=== PATIENT | male | born 1960 | race Caucasian/White ===

== ENCOUNTER → 2022-06-08 | Outpatient (CLI) | payer BC, SELFPAY ==
--- NOTE | 2022-06-08 15:01 | ECHOD_ITS ---
Reason For Study: Chest Pain Procedure This was a 2D Doppler, Color Flow transthoracic echocardiogram. Exam performed in department. Left Ventricle The estimated ejection fraction is 55 %. Normal diastology for age. No regional wall motion abnormalities noted. Right Ventricle Normal RV size. Normal systolic function. Atria Normal left atrium. Normal right atrium. No doppler evidence for ASD. Mitral Valve There is no mitral valve stenosis. Trivial mitral valve insufficiency. Tricuspid Valve There is no tricuspid stenosis. Trivial tricuspid valve insufficiency. Unable to estimate RV systolic pressure due to insufficient tricuspid regurgitant envelope. Aortic Valve Trisinus/trileaflet aortic valve. There is no aortic stenosis. No aortic valve insufficiency. Pulmonic Valve There is no pulmonic valvular stenosis. No pulmonic valve insufficiency. Great Vessels Normal aortic root. Pericardium/Pleural No pericardial effusion. MMode/2D Measurements & Calculations LVIDd: 5.9 cm IVSd: 1.1 cm LA dimension: 4.0 cm LVIDs: 4.3 cm LVPWd: 0.97 cm RVDd: 4.2 cm FS: 27.1 % LAV(MOD-bp): 64.2 ml LA A4 area: 20.0 cm2 RA A4 area: 19.3 cm2 LAV(MOD-bp) Indexed: 30.4 ml/m2 LAV(MOD-sp2): 68.0 ml LAV(MOD-sp4): 53.2 ml Time Measurements MV dec time: 0.19 sec Doppler Measurements & Calculations MV E max bryan: 78.4 cm/sec MV V2 max: 73.5 cm/sec MV P1/2t max bryan: 73.5 cm/sec MV A max bryan: 55.9 cm/sec MV max P.2 mmHg MV P1/2t: 62.9 msec MV E/A: 1.4 MV V2 mean: 37.2 cm/sec MV dec slope: 342.2 cm/sec2 MV mean P.67 mmHg MVA(P1/2t): 3.5 cm2 MV V2 VTI: 30.7 cm Ao V2 max: 127.1 cm/sec LV V1 max: 108.3 cm/sec MR max bryan: 489.7 cm/sec Ao max P.5 mmHg LV V1 max P.7 mmHg MR max P.9 mmHg LV V1 mean P.4 mmHg LV V1 mean: 73.7 cm/sec LV V1 VTI: 25.0 cm PA V2 max: 89.2 cm/sec PA V2 mean: 62.4 cm/sec ECHO/Echo Complete Interpretation Summary The estimated ejection fraction is 55 %. Trivial mitral valve insufficiency. Ordering Physician: MARINA CAMARA Referring Physician: MARINA CMAARA Performed By: Jim Tello RCS
== END | disposition home or self-care (01) ==
PROVIDERS: PCP Nurse Practitioner Family
DX: R07.9 Chest pain, unspecified (principal); I10 Essential (primary) hypertension; Z72.0 Tobacco use
CPT/HCPCS: 93306

== ENCOUNTER → 2023-06-25 | Outpatient (CLI) | payer OTHER, SELFPAY ==
--- NOTE | 2023-06-25 09:05 | VDLE_ITS ---
Reason For Study: bilateral calf pain RIGHT LEFT GSV is normal. GSV is normal. CFV is compressible, spontaneous, phasic, CFV is compressible, spontaneous, phasic, competent and demonstrates normal competent, and demonstrates normal augmentation. augmentation. FV is compressible, spontaneous, phasic, FV is compressible, spontaneous, phasic, competent and demonstrates normal competent and demonstrates normal augmentation. augmentation. POP V is compressible, spontaneous, phasic, POP V is compressible, spontaneous, phasic, competent and demonstrates normal competent and demonstrates normal augmentation. augmentation. T/P Trunk is compressible. T/P Trunk is compressible. PTV is compressible. PTV is compressible. RT PerV is compressible. LT PerV is compressible. Procedure This is a venous duplex using B-mode, color flow and spectral Doppler. Exam performed in department. The exam was diagnostic. A preliminary report was called and/or faxed to Korin at Dr. Montes's office. VL/Venous Duplex US - Aamir Extrem Interpretation Summary Deep veins of the lower extremities are bilaterally patent and compressible seg mentally. There is no evidence of deep vein thrombosis on either side. Valvular competence appears in tact within the proximal deep venous systems bilaterally. The great saphenous veins appear bila terally patent and compressible segmentally. Ordering Physician: Juan Jose Montes Performed By: Omi Celestin RVT
--- NOTE | 2023-06-25 09:05 | ART_ITS ---
Reason For Study: claudication, calf pain Procedure A bilateral lower extremity continuous wave Doppler with analog waveform analysis,segmental pressures,and ankle brachial indexes without exercise. Prelim called to Korin at Dr. Montes's office. Left Segmental Pressures Left brachial= 163mmHg. Left thigh = 61mmHg. Left calf = 67mmHg. Left posterior tibial artery = 68mmHg. Left dorsalis pedis artery = 63mmHg. The left dorsalis pedis waveforms are monophasic. The left posterior tibial artery waveforms are monophasic. Right Segmental Pressures Right brachial= 173mmHg. Right thigh = 148mmHg. Right calf = 152mmHg. Right posterior tibial artery = 151mmHg. Right dorsalis pedis artery = 163mmHg. The right dorsalis pedis waveforms are biphasic. The right posterior tibial artery waveforms are biphasic. Indices The right ankle brachial index by the dorsalis pedis is .94. The right ankle brachial index by the posterior tibial artery is .87. The left ankle brachial index by the posterior tibial artery is .39. The left ankle brachial index by the dorsalis pedis is .36. VL/Lower Ext Art Exam w/o Exercis Interpretation Summary Biphasic Doppler waveforms are noted at ankle level on the right. Monophasic Do ppler waveforms are noted at ankle level on the left. Pulse-volume recordings appear diminished at low-thigh, calf, and ankle levels on the left. The resting right ankle-brachial index is minimally d iminished. The resting left ankle-brachial index is severely diminished. Minimal arterial occlusive disease is noted at ankle level on the right. Severe arterial occlusive disease is noted at ankle level on the left. Ordering Physician: Juan Jose Montes Performed By: Omi Celestin RVT
== END | disposition home or self-care (01) ==
PROVIDERS: PCP Nurse Practitioner Family; Referring Provider Family Medicine; Visit Provider Family Medicine
DX: M79.661 Pain in right lower leg (principal); I73.9 Peripheral vascular disease, unspecified; Z12.2 Encounter for screening for malignant neoplasm of respiratory organs
CPT/HCPCS: 93923; 93970

== ENCOUNTER → 2023-07-02 | Outpatient (CLI) | payer OTHER, SELFPAY ==
--- NOTE | 2023-07-02 08:05 | CT_ITS ---
EXAM: CT CHEST, LUNG CANCER SCREENING WITHOUT INTRAVENOUS CONTRAST CLINICAL INDICATION: SCREENING TECHNIQUE: Helically acquired images were obtained of the chest without intravenous contrast using low dose (LDCT) lung cancer screening protocol. This CT exam was performed using one or more of the following dose reduction techniques: automated exposure control, adjustment of the mA and/or kV according to patient size, and/or use of iterative reconstruction technique. COMPARISON: No relevant prior studies available. FINDINGS: LUNGS AND PLEURAL SPACES: History millimeter right lower lobe pulmonary nodule noted on image 151 of sequence 2 likely representing granuloma. Lungs are otherwise clear. No pleural effusion or thickening. No pneumothorax. HEART: Heart is normal size. Mild to moderate coronary artery calcification. No pericardial effusion. MEDIASTINUM: Normal. Esophagus is unremarkable. No hiatal hernia. No mediastinal or hilar lymphadenopathy. THYROID: Normal. No thyroid nodules or calcification. BONES/JOINTS: No suspicious lytic or blastic abnormality. VASCULATURE: No aortic aneurysm. LYMPH NODES: Normal. No enlarged lymph nodes. CT/Low Dose CT Lung Screening IMPRESSION: 3 mm right lower lobe pulmonary nodule. Lung-RADS score: 2 - Benign Appearance or Behavior. Recommend continued annual screening with a low-dose CT (LDCT) in 12 months. Electronically Signed: Neil Fox MD at 9:13 EDT ,
== END | disposition home or self-care (01) ==
LOC: CT 08:04
PROVIDERS: PCP Nurse Practitioner Family; Referring Provider Family Medicine; Visit Provider Family Medicine
DX: M79.661 Pain in right lower leg (principal); I73.9 Peripheral vascular disease, unspecified; M79.662 Pain in left lower leg; Z12.2 Encounter for screening for malignant neoplasm of respiratory organs
CPT/HCPCS: 71271

== ENCOUNTER → 2023-11-21 | Outpatient (CLI) | payer OTHER, SELFPAY ==
--- NOTE | 2023-11-21 08:31 | CT_ITS ---
STUDY: CTA OF THE ABDOMINAL AORTA AND BILATERAL LOWER EXTREMITIES REASON FOR EXAM: Male, 63 years old. Short distance claudication, sudden onset LLE RADIATION DOSAGE (If Supplied By Facility): CTDIvol = ( 9.3 ) mGy, DLP = ( 1332.27 ) mGycm TECHNIQUE: Axial CT angiography multi-detector data acquisition was obtained from the dome of the liver to the level of the ankles following intravenous administration of IV 100mL Isovue-370. Axial images and MIP images were reconstructed from the axial data set. Post-processing of the angiographic images was performed, with multiplanar reformation and 3D reconstruction. Individualized dose optimization techniques were used for this CT. TECHNICAL QUALITY: Good COMPARISON: None. Descriptors of Narrowing: None (0%) Mild (< 50%) Moderate (50-70%) Severe (70-90%) Subtotal/Total Occlusion (90-100%) Non-Evaluable (technically non-diagnostic FINDINGS: Abdominal aorta: Mild degree of atherosclerotic calcific plaques of the distal abdominal aorta. Celiac and superior mesenteric arteries: No demonstrated narrowing. Inferior mesenteric artery: No demonstrated narrowing. Right renal artery(arteries): Calcific plaques in the right intrarenal branches. Left renal artery(arteries): Calcific plaques seen in the left intrarenal branches. Right common iliac artery: Mild calcific plaques. Right external iliac artery: No demonstrated narrowing. Right internal iliac artery: No demonstrated narrowing. Left common iliac artery: Nonstenotic calcific plaques. Left external iliac artery: No demonstrated narrowing. Left internal iliac artery: No demonstrated narrowing. RIGHT LOWER EXTREMITY Right common femoral artery: No demonstrated narrowing. Right profundus femoris: No demonstrated narrowing. Right superficial femoral: Calcific plaques in the distal portion of the superficial femoral artery. Right popliteal artery: No demonstrated narrowing. Right tibioperoneal trunk: Nonstenotic calcific plaques. Right anterior tibial artery: Nonstenotic plaque at the origin of the anterior tibial artery. Right posterior tibial artery: No demonstrated narrowing. Right peroneal artery: No demonstrated narrowing. LEFT LOWER EXTREMITY Left common femoral artery: No demonstrated narrowing. Left profundus femoris: No demonstrated narrowing. Left superficial femoral: No demonstrated narrowing. Left popliteal artery: No demonstrated narrowing. Left tibioperoneal trunk: Nonobstructive calcific plaques. Left anterior tibial artery: No demonstrated narrowing. Left posterior tibial artery: No demonstrated narrowing. Left peroneal artery: No demonstrated narrowing. CT/CTA Abd w/Runoff W/WO Contrast IMPRESSION: Scattered calcific plaques as described with good three-vessel runoff in both lower extremities. Electronically Signed: Chidi Restrepo MD at 11:07 EST ,
--- OUTSIDE RECORDS SUMMARY | 2023-11-21 08:51 | XMS RPT_ITS | CCD ---
Author Name Unknown Address [address] [place] [address] Organization [facility] Care Team Providers Care Python Programmer Name Role Phone Vee SUAREZ Attending Unavailable Vee SUAREZ Primary Care Unavailable Vee SUAREZ Admitting Unavailable MORALESJOHNRY Deanna Consulting Unavailable PROVIDER, UNKNOWN Consulting Unavailable PROVIDER, UNKNOWN Consulting Unavailable PROVIDER, UNKNOWN Consulting Unavailable Results Test Name Value Interpretation Reference Range Facil ity Encounters Encounter Date Encounter Type Care Provider Facility Start: 11-12-2023 ambulatory Vee SUAREZ [facility] Payers Date Payer Category Payer Unknown [id number] Private Health Insurance [id number] Summary Purpose Family History No Family History Records FoundNo Family History Records Found Advance Directives No Advanced Directives Records FoundNo Advanced Directives Records Found Additional Source Comments (unrecognized sect ion and content) No Status Records FoundNo Status Records Found INFORMATION SOURCE (unrecogn ized section and content) DATE CREATED AUTHOR AUTHOR'S ORGANIZ ATION 11/12/2023 [facility] FOR RECORDS PERTAINING TO PATIENTS WHO ARE OR HAVE BEEN ENROLLED IN A CHEMICAL DEPENDENCY/SUBSTANCEABUSE PROGRAM, SOME INFORMATION MAY BE OMITTED. This clinical summary was aggregated from multiple sources. Caution should be exercised in using it in the provision of clinical care. This summary normalizes information from multiple sources, and as a consequence, information in this document may materially change the coding, format and clinical context of patient data. In addition, data may be omitted in some cases. CLINICAL DECISIONS SHOULD BE BASED ON THE PRIMARY CLINICAL RECORDS. [employer] [facility]. provides no warranty or guarantee of the accuracy or completeness of information in this document.
[2023-11-21 08:59] LABS: CREATININE FINGERSTICK 1.2 mg/dL (0.70-1.30); EGFR FINGERSTICK > 60.0000 mL/min (>60)
== END | disposition home or self-care (01) ==
PROVIDERS: PCP Nurse Practitioner Family; Referring Provider Physician Assistant; Visit Provider Physician Assistant
DX: I73.9 Peripheral vascular disease, unspecified (principal)
CPT/HCPCS: 75635; Q9967

== ENCOUNTER → 2023-12-05 | Outpatient (CLI) | payer OTHER, SELFPAY ==
--- OUTSIDE RECORDS SUMMARY | 2023-12-05 10:05 | XMS RPT_ITS | CCD ---
Author Name Unknown Address [address] [place] [address] Organization [facility] Care Team Providers Care Mercury Cell Cleaner Name Role Phone Vee SUAREZ Attending Unavailable Vee SUAREZ Primary Care Unavailable Vee SUAREZ Admitting Unavailable MORALESJOHNRY Deanna Consulting Unavailable PROVIDER, UNKNOWN Consulting Unavailable PROVIDER, UNKNOWN Consulting Unavailable PROVIDER, UNKNOWN Consulting Unavailable Results Test Name Value Interpretation Reference Range Facil ity Encounters Encounter Date Encounter Type Care Provider Facility Start: 11-12-2023 ambulatory Vee SUAREZ [facility] Payers Date Payer Category Payer Unknown [id number] Private Health Insurance [id number] Summary Purpose Family History No Family History Records FoundNo Family History Records Found Advance Directives No Advanced Directives Records FoundNo Advanced Directives Records Found Additional Source Comments (unrecognized sect ion and content) No Status Records FoundNo Status Records Found INFORMATION SOURCE (unrecogn ized section and content) DATE CREATED AUTHOR AUTHOR'S ORGANIZ ATION 11/12/2023 [facility] FOR RECORDS PERTAINING TO PATIENTS WHO ARE [...] BE BASED ON THE PRIMARY CLINICAL RECORDS. [employer] [facility]. provides no warranty or guarantee of the accuracy or completeness of information in this document.
--- NOTE | 2023-12-05 10:07 | US_ITS ---
STUDY: Focused neck ULTRASOUND REASON FOR EXAM: Male, 63 years old. right posterior neck lipoma TECHNIQUE: Ultrasound evaluation of the thyroid was performed with real-time and static morse-scale imaging. COMPARISON: None. FINDINGS: Right posterior subcutaneous soft tissue nodule measures 5.3 x 5.3 x 2.3 cm. Contains some internal color blood flow. US/Head/Neck Soft Tissue IMPRESSION: Nonspecific subcutaneous solid nodule as above Electronically Signed: Kulwant Alegria MD at 17:14 EST ,
--- NOTE | 2023-12-05 10:08 | US_ITS ---
STUDY: SUPERFICIAL ULTRASOUND - LEFT THUMB REASON FOR EXAM: Male, 63 years old. Left thumb lipoma -- left thumb lipoma TECHNIQUE: A superficial ultrasound was performed with real-time and static morse-scale imaging. COMPARISON: None. FINDINGS: Ultrasound in the area of concern shows an elliptical relatively well-defined hyperechoic subcutaneous soft tissue lesion approximately 2.0 x 1.5 x 1.1 cm. The appearance is nonspecific but most consistent with lipoma. Electronically Signed: Joe Velez MD at 20:28 EST , US/Ext Non Vasc Limited/Soft Tiss IMPRESSION: undefined
--- NOTE | 2023-12-05 10:09 | US_ITS ---
STUDY: SUPERFICIAL ULTRASOUND - LEFT SIDE OF THE BACK. REASON FOR EXAM: Male, 63 years old. Left flank lipoma -- Left flank TECHNIQUE: A superficial ultrasound was performed with real-time and static morse-scale imaging. COMPARISON: None. FINDINGS: The palpable abnormality corresponds to an 8.4 cm x 13.2 cm x 2.1 cm heterogeneous soft tissue mass most likely representing a lipoma. Mild vascularity is seen. Biopsy is recommended. US/Abdomen Limited IMPRESSION: The palpable lump corresponds to an 8.4 cm x 13.2 cm x 2.1 cm heterogeneous soft tissue mass. Slight increased vascularity. Biopsy is recommended. Electronically Signed: Chidi Restrepo MD at 15:27 EST ,
[2023-12-05 11:09] LABS: Absolute Lymphocyte Count 1.95 X10^3/uL (0.83-4.51); Absolute Neutrophil Count 3.6 X10^3/uL (2.0-7.7); Basophil# 0.06 X10^3/uL; Basophil% 0.9 % (0-1); Hematocrit 48.8 % (40-54); Hemoglobin 16.5 g/dL (13.0-16.5); Lymphocyte # 1.95 X10^3/ul (0.83-4.51); Lymphocyte % 29.6 % (19-41); Mean Corp Hgb Conc 33.8 g/dL (32-36); Mean Corpuscular Hgb 30.5 pg (27.0-32.0); Mean Corpuscular Volume 90.2 fL (80-94); Mean Platelet Vol. 10.1 fl (6.2-12.0); Monocyte# 0.78 X10^3/uL; Monocyte% 11.9 % (0-10); NRBC Flagged by Analyzer 0 % (0-5); Neutrophil # 3.58 X10^3/uL (2.7-7.7); Neutrophil % 54.4 % (47-70); Platelet Count 259 K/mm3 (150-450); RBC Distribution Width CV 12.8 % (11.6-14.6); RBC Distribution Width SD 42.5 fl (35.1-43.9); Red Blood Count 5.41 M/mm3 (4.6-6.2); White Blood Count 6.6 K/mm3 (4.4-11.0)
[2023-12-05 11:36] LABS: ALB/GLOB Ratio 1.1 RATIO (0.9-2.4); AST(SGOT) 15 U/L (15-37); Alanine Aminotransfer ALT/SGPT 32 U/L (16-61); Albumin, Serum 3.8 g/dL (3.2-5.0); Alkaline Phosphatase 50 U/L (45-117); Anion Gap 5 (5-15); BUN 34 mg/dL (7-18); BUN/Creat Ratio 38.5 RATIO (10-20); Calcium,Total 9.5 mg/dL (8.5-10.1); Chloride 103 mmol/L (98-107); Creatinine, Serum 0.88 mg/dL (0.70-1.30); EST Glomerular Filtration Rate 93 mL/min (>60); Est Glom Filt Rate - Afr Amer 112 mL/min (>60); Globulin 3.5 g/dL (2.2-4.2); Glucose 155 mg/dL (74-106); Potassium 4.2 mmol/L (3.5-5.1); Protein, Total 7.3 g/dL (6.4-8.2); Sodium Level 137 mmol/L (136-145)
[2023-12-05 11:41] LABS: Hemoglobin A1c 6.6 % (3.8-5.6)
[2023-12-05 11:43] LABS: Microalbumin,Random Urine 9.8 mg/L (NO RANGE EST.); Microalbumin:Creatinine Ratio 8.5 mg/g CRE (<30 mg/g CRE)
== END | disposition home or self-care (01) ==
LOC: US 09:37
PROVIDERS: Family Medicine; PCP Nurse Practitioner Family; Referring Provider Surgery; Visit Provider Surgery
DX: E11.9 Type 2 diabetes mellitus without complications (principal); Z51.81 Encounter for therapeutic drug level monitoring
CPT/HCPCS: 36415; 76536; 76705; 76882; 80053; 82043; 82570; 83036; 85025

== ENCOUNTER 2024-01-02 08:43 | Day surgery (SDC) | payer OTHER, SELFPAY ==
[2024-01-02] MEDS: Lactated Ringers 1,000 ML 15 ML IV (09:05)
[2024-01-02 09:06] VITALS: BP 158/74; PULSE 70; RESP 18; TEMP 36.3; O2SAT 97; BMI 28.3
--- OUTSIDE RECORDS SUMMARY | 2024-01-02 09:06 | XMS RPT_ITS | CCD ---
Author Name Unknown Address [address] [place] [address] Organization [facility] Care Team Providers Care Asphalt Tamper Name Role Phone Vee SUAREZ Attending Unavailable Vee SUAREZ Primary Care Unavailable Vee SUAREZ Admitting Unavailable ISAURO MORALES Consulting Unavailable PROVIDER, UNKNOWN Consulting Unavailable PROVIDER, UNKNOWN Consulting Unavailable PROVIDER, UNKNOWN Consulting Unavailable TE JUNIOR Unavailable SILVESTRE TORRES Unavailable [place] Unavailable Unavailable CARDIOLOGY, GENERAL Unavailable Unavailable VASCULAR SURGEON, GENERAL Unavailable Unavai lable SURGERY, GENERAL Unavailable Unavailable RICHARD GENAO, SCOTT Melgar Unavailable Vee SUAREZ MD Unavailable [phone] MD Unavailable CAMILO MAN MD Unavailable [phone] Diana Kevin RN Unavailable Unavailable Jose D GEORGE, Korin Unavailable Unavaila SUMAN Paz Unavailable Unavailable Twan GEORGE, Brittney Unavailable Unavailable ISAURO MORALES MD Unavailable SANTOS JIMENEZ RN Unavailable Unavailable ANDREW PHELAN Unavailable Unavailable Unavailable Unavailable Medications Current Medications Medication Drug Class(es) Dates Sig (Normalized) Sig (Original) atorvastatin 20 mg oral tablet (3 sources) HMG-CoA Reductase Inhibitor Start: 4 atorvastatin 20 mg tablet ; 1 (one) Tablet daily for 90 days Quantity: 90 {Tablet} Refills: 1 Ordered: 12-Nov-2023 MD Vee SUAREZ Start: 2-Tenzin-2024 hydroCHLOROthiazide 50 mg oral tablet (3 sources) Thiazide Diuretic Start: 4 take 1 tablet by mouth before breakfast hydroCHLOROthiazide 50 mg tablet ; 1 (one) Tablet every morning for 90 days Quantity: 90 {Tablet} Refills: 1 Ordered: 12-Nov-2023 MD Vee SUAREZ Start: 12-Nov-2023 losartan potassium 100 mg oral tablet (3 sources) Angiotensin 2 Receptor Tiffanie Start: 4 losartan 100 mg tablet ; 1 (one) tablet daily for 30 days Quantity: 30 {Tablet} Refills: 5 Ordered: 17-Dec-2023 MD Vee SUAREZ Start: 17-Dec-2023 Completed/Discontinued Medications Medication Drug Class(es) Dates Sig (Normalized) Sig (Original) acetaminophen 300 mg / codeine phosphate 30 mg oral tablet (3 sources) Opioid Agonist Start: 01-05-2011 End: 01-26-2011 take 1 tablet by mouth every four hours as needed ACETAMINOPHEN-COD EINE #3, 300-30MG (Oral Tablet) ; 1 - 2 Tablet every four hours, as needed for 0 days Quantity: 20 {Tablet} Refills: 0 Ordered: 26-Jan-2011 Start: 05-Jan-2011 End: 26-Jan-2011 Status: Inactive Comments: Medication taken as needed. meds to be dispensed in office Problems Active Problems Problem Classification Problem Date Documented Da te Episodic/Chronic Administrative/social admission (20 sources) Patient encounter status; Translations: [Counseling, unspecified] 06-04-2023 Episodic Diabetes mellitus without complication (20 sources) Type 2 diabetes mellitus; Translations: [Type 2 diabetes mellitus without complications] Onset: 11-22-2016 11-12-2023 Chronic Past or Other Problems Problem Classification Problem Date Documented Da te Episodic/Chronic Diabetes mellitus without complication (9 sources) Diabetes mellitus without complication 11-12-2023 Headache; including migraine (9 sources) Headache; including migraine 11-12-2023 Unclassified (3 sources) !Patient notification of lab results - Dr. Suarez. The test(s) that you had done were/was a screening CT. This showed a 3 mm nodule and the recommendation was to have annual screening CTs. You should call our office if you have any questions. 07-16-2023 Unclassified (3 sources) !Patient notification of lab results - Dr. Suarez. 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 I would like to arrange a consult for you with the vascular surgeon in [place]. Please let us know if we may arrange this). You should call our office if you have any questions. 07-01-2023 Unclassified (2 sources) Shortness of breath.. - Symptoms include dyspnea. Note for Shortness of breath : Pt gets short of breath with activity. Symptoms started about 1 month ago. 06-20-2023 Unclassified (2 sources) [ADDITIONAL REASON] Leg pain - Note for Leg pain : Pt c/o bilateral calf pain. Left leg is worse. Pt denies any injury. Pt has pain when walking, but not when resting. Symptoms started about 1 month ago. 06-20-2023 Unclassified (3 sources) !Patient notification of lab results - YASMINE Jernigan. The test(s) that you had done were/was a heart stress test. Your tests showed the following abnormalities: baseline EKG abnormality . You should call our office to schedule a referral and if you have any questions. Please let us know if your symptoms do not improve. Note for !Patient notification of lab results : Based on the baseline abnormality, I would like for you to see a vp human resources. Please let me know if you would like to do this. Thanks! 02-08-2022 Unclassified (3 sources) !Patient notification of lab results - YASMINE Jernigan. The test(s) that you had done were/was blood work. The results of your testing were normal . You should call our office if you have any questions. Please follow up as scheduled. 01-28-2022 Unclassified (3 sources) HYPERTENSION - There has been no associated chest pain or dyspnea. 01-25-2022 Unclassified (3 sources) !Patient notification of lab results - Dr. Way. Note for !Patient notification of lab results : Salvador, your labs look pretty good. Your A1C (3 month sugar check) was 6.0 which is not diabetes, but is somewhat elevated and in the pre-diabetes range. Nothing to do with that at this point other than keep the weight down and we will follow.Your cholesterol and other labs look good.Let us know if you have any questions. 10-16-2021 Unclassified (2 sources) HYPERTENSION - Note for HYPERTENSION : No headaches, swelling of ankles, chest pain or shortness of breath. Some dizzy spells. Stopped taking blood pressure pills years ago 10-13-2021 Unclassified (2 sources) [ADDITIONAL REASON] Immunization - Immunizations discussed with patient/ parent: yes. Influenza immunization was given. An immunization information sheet was provided. 10-13-2021 Unclassified (3 sources) Eye Pain - The onset of the eye pain has been acute and has been occurring for days (1). The pain is located in the right eye. Note for Eye pain : Right eye is red. 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 05-23-2017 Unclassified (2 sources) [ADDITIONAL REASON] HYPERTENSION - The symptoms have been associated with chest pain and dyspnea. Note for HYPERTENSION : No headaches, dizzy spells, or swelling of ankles. Has Smoker's Cough 02-14-2017 Unclassified (3 sources) !Patient notification of lab results - Morales. The test(s) that you had done were/was a ultrasound of your aorta. The results of your testing were normal . You should call our office if you have any questions. 11-29-2016 Unclassified (3 sources) !Patient notification of lab results - Morales. The test(s) that you had done were/was an A1C (three month sugar average), a CMP (kidneys, liver, nutrition, sugar) and a lipid panel (cholesterol and triglycerides). Your tests showed the following abnormalities: high sugar . (Your A1c was 6.7 which is in the diabetic range (over 5.7). I recommend you start a medication to help lower your sugar. I also recommend diet, exercise, and weight loss. Lowering your blood pressure, sugar, and quitting smoking would greatly improve your risk for heart disease and further health complications down the road.) You should call our office if you have any questions. 11-23-2016 Unclassified (3 sources) Skin spots - The onset of the skin spots has been sudden and they have been occurring for 3 weeks. The course has been increasing. Note for Skin spots : 2 spots in the arch of right foot. Painful 11-22-2016 Unclassified (3 sources) [ADDITIONAL REASON] Blood pressure check - Note for Blood pressure check-up : Has had elevated Blood Pressure last few visits 11-22-2016 Unclassified (3 sources) recheck - Note for recheck : right thumb, hard to bend thumb (right) and swollen , not painful, is tingling,numb 01-26-2011 Unclassified (3 sources) recheck - Note for recheck : right thumb 01-12-2011 Unclassified (3 sources) Cellulitis - Symptoms include pain, swelling, tenderness, warmth, edema and limited range of motion, while symptoms do not include drainage. 01-05-2011 Unclassified (3 sources) [ADDITIONAL REASON] recheck right thumb - Thumb is swollen and throbs. 01-05-2011 Unclassified (3 sources) thumb pain - c/o pain and swelling to right thumb which keeps him up at night. had for about 10 days. does not know what he did to it. 01-02-2011 Unclassified (1 source) Leg pain - Note for Leg pain : Pt c/o bilateral calf pain. Left leg is worse. Pt denies any injury. Pt has pain when walking, but not when resting. Symptoms started about 1 month ago. 06-20-2023 Unclassified (1 source) [ADDITIONAL REASON] Shortness of breath.. - Symptoms include dyspnea. Note for Shortness of breath : Pt gets short of breath with activity. Symptoms started about 1 month ago. 06-20-2023 Unclassified (1 source) Immunization - Immunizations discussed with patient/ parent: yes. Influenza immunization was given. An immunization information sheet was provided. 10-13-2021 Unclassified (1 source) [ADDITIONAL REASON] HYPERTENSION - Note for HYPERTENSION : No headaches, swelling of ankles, chest pain or shortness of breath. Some dizzy spells. Stopped taking blood pressure pills years ago 10-13-2021 Unclassified (1 source) HYPERTENSION - The symptoms have been associated with chest pain and dyspnea. Note for HYPERTENSION : No headaches, dizzy spells, or swelling of ankles. Has Smoker's Cough 02-14-2017 Unclassified (1 source) HYPERTENSION - There has been no associated chest pain. Note for HYPERTENSION : Pt does not check BP at home. Pt was seen and started on losartan 1 month ago. He is feeling good on new med. Labs done. 12-17-2023 Results Test Name Value Interpretation Reference Range Facil ity Vital Signs Date Time Vital Sign Value Performing Clinician Mariah denis 12-17-2023 10:58-0500 Body height 180.34 cm [facility] [place] 12-17-2023 10:58-0500 Body mass index (BMI) [Ratio] 29.76 kg/m2 Brittney Trent [facility]. 12-17-2023 10:58-0500 Body surface area Derived from formula 2.17 m2 Brittney Trent RN [facility] [employer] [facility] [place].; [facility]. 12-17-2023 10:58-0500 Body weight 96.79 kg Brittney Trent [facility] [place], [employer].; [facility], [facility]. 12-17-2023 10:58-0500 Diastolic blood pressure 69 mm[Hg] Brittney Trent RN [facility] [employer] [facility] [place].; [employer] [facility] [employer] [facility] [place], [facility] Encounters Encounter Date Encounter Type Care Provider Facility Start: 12-17-2023 End: 12-17-2023 Office outpatient visit 15 minutes TE PATEL TUMBLERS SUPERVISOR-C Work Phone: [facility] Start: 11-12-2023 ambulatory R [facility] Start: 11-12-2023 End: 11-12-2023 Office outpatient visit 15 minutes TE PATEL TUMBLERS SUPERVISOR-C Work Phone: [facility] [employer] [facility] [place] Start: 11-07-2023 End: 11-07-2023 Medication Refill/Order TE LINTETTER TUMBLERS SUPERVISOR-C Work Phone: [facility] [employer] [facility] [place] Start: 10-05-2023 End: 10-05-2023 Medication Refill/Order TE HOFSTETTER TUMBLERS SUPERVISOR-C Work Phone: [facility] [employer] [facility] [place] Start: 07-13-2023 End: 07-13-2023 Procedure Order TE PATEL TUMBLERS SUPERVISOR-C [facility] Start: 07-13-2023 End: 07-13-2023 Patient encounter procedure TE PATEL TUMBLERS SUPERVISOR-C [facility] Start: 07-01-2023 End: 07-01-2023 Patient encounter procedure TE PATEL TUMBLERS SUPERVISOR-C [facility] Start: 06-04-2023 End: 06-04-2023 Office outpatient visit 25 minutes TE DELGADOBRAVO TUMBLERS SUPERVISOR-C Work [facility]: [facility] Start: 10-25-2022 End: 10-25-2022 Office outpatient visit 10 minutes TE DELGADOBRAVO TUMBLERS SUPERVISOR-C [facility] Start: 06-28-2022 End: 06-28-2022 Office outpatient visit 15 minutes TE PATEL TUMBLERS SUPERVISOR-C [facility] Start: 03-01-2022 End: 03-01-2022 Transition of Care TE DELGADOBRAVO TUMBLERS SUPERVISOR-C [facility] Start: 02-08-2022 End: 02-08-2022 Patient encounter procedure TE PATEL TUMBLERS SUPERVISOR-C Work Phone: [facility] [employer] [facility] [place] Start: 01-28-2022 End: 01-28-2022 Follow-up encounter TE PATEL TUMBLERS SUPERVISOR-C Work Phone: [facility] [employer] [facility] [place] Start: 01-25-2022 End: 01-25-2022 Addendum to visit TE PATEL TUMBLERS SUPERVISOR-C Work Phone: [facility] [employer] Start: 01-25-2022 End: 01-25-2022 Office outpatient visit 15 minutes TE PATEL TUMBLERS SUPERVISOR-C Work Phone: [facility] [employer] [facility] [place] Start: 10-14-2021 End: 10-16-2021 Results Review TE PATEL TUMBLERS SUPERVISOR-C Work Phone: [facility] [employer] [facility] [place] Start: 10-13-2021 End: 10-13-2021 Office outpatient visit 15 minutes TE PATEL TUMBLERS SUPERVISOR-C Work Phone: [facility] [employer] [facility] [place] Start: 05-23-2017 End: 05-23-2017 Office outpatient visit 15 minutes TE PATEL TUMBLERS SUPERVISOR-C Work Phone: [facility] [employer] [facility] [place] Start: 02-14-2017 End: 02-14-2017 Office outpatient visit 15 minutes TE DELGADOER TUMBLERS SUPERVISOR-C Work Phone: [facility] [employer] Start: 11-29-2016 End: 11-29-2016 Results Review TE PATEL TUMBLERS SUPERVISOR-C Work Phone: [facility] [employer] [facility] [place] Start: 11-23-2016 End: 11-23-2016 Nutrition therapy TE PATEL TUMBLERS SUPERVISOR-C Work Phone: [facility] [employer] [facility] [place] Start: 11-22-2016 End: 11-22-2016 Office outpatient new 30 minutes TE PATEL TUMBLERS SUPERVISOR-C Work Phone: [place] [employer] [facility] [employer] Start: 01-26-2011 End: 01-26-2011 Patient encounter procedure TE PATEL TUMBLERS SUPERVISOR-C Work Phone: [facility] Start: 01-23-2011 End: 01-23-2011 Medication Refill/Order TE BREAUXPETERSON TUMBLERS SUPERVISOR-C Work Phone: [facility] Start: 01-12-2011 End: 01-12-2011 Patient encounter procedure TE PATEL TUMBLERS SUPERVISOR-C Work Phone: [facility] Start: 01-10-2011 End: 01-10-2011 Medication Refill/Order TE BREAUXPETERSON TUMBLERS SUPERVISOR-C Work Phone: [facility] Start: 01-05-2011 End: 01-05-2011 Patient encounter procedure TE DELGADOBRAVO TUMBLERS SUPERVISOR-C Work Phone: [facility] Start: 01-02-2011 End: 01-02-2011 Patient encounter procedure TE DELGADOBRAVO TUMBLERS SUPERVISOR-C Work Phone: [facility] Procedures Date Procedure Procedure Detail Performing Clinician Start: 12-17-2023 End: 12-17-2023 Dischrg meds reconciled w/current med list Vee SUAREZ MD Work Phone: Start: 07-01-2023 End: 07-01-2023 Ct thorax w/o contrast material Vee SUAREZ MD Work Phone: Start: 07-01-2023 End: 07-01-2023 Dup-scan xtr veins complete bilateral study Vee SUAREZ MD Work Phone: Start: 06-04-2023 End: 06-04-2023 Dischrg meds reconciled w/current med list Vee SUAREZ MD Work Phone: Start: 10-25-2022 End: 10-25-2022 Dischrg meds reconciled w/current med list TE PATEL TUMBLERS SUPERVISOR-C Work Phone: Start: 05-11-2022 End: 05-11-2022 Echocardiography TE PATEL TUMBLERS SUPERVISOR-C Work Phone: Plan of Treatment Date Care Activity Detail Author Start: 02-18-2024 [facility], [facility]; ESTABLISHED PATIENT ROUTINE VISIT - Topmission. Start: 18-Feb-2024 10:00 MD Vee SUAREZ Appointment Request Topmission. Start: 12-31-2023 Basic metabolic panel calcium total BMP (01268) Start: 31-Dec-2023 Request [employer].; [employer] ([employer]), [employer]. Start: 12-17-2023 [facility] visit, [facility] pt Medical; ESTABLISHED PATIENT ROUTINE VISIT - [employer]. Start: 17-Dec-2023 11:00 MD Vee SUAREZ Appointment Request Topmission. Start: 11-26-2023 Blood count complete auto&auto difrntl wbc CBC, PLATELETS & AUT DIFF (80411) Start: 26-Nov-2023 Request [employer].; Topmission. Start: 11-26-2023 Comprehensive metabolic panel CMP - COMPREHENSIVE METABOLIC PANEL (17833) Start: 26-Nov-2023 Request [employer].; [employer] ([employer]), [employer]. Start: 11-26-2023 Hemoglobin glycosylated a1c HEMOGLOBIN GLYCLATED (HGB A1C) (20799) Start: 26-Nov-2023 Request [employer].; [employer] ([employer]), Inc. Start: 11-26-2023 Urine albumin quantitative URINARY ALBUMIN/CREATININE RATIO (57159) (26500) Start: 26-Nov-2023 Request [employer].; [employer] ([employer]), Inc. Start: 08-12-2023 Ct thorax w/o contrast material LOW-DOSE COMPUTED TOMOGRAPHY (LDCT) OF CHEST WITHOUT CONTRAST FOR SCREENING FOR MALIGNANT NEOPLASM OF LUNG (03100) Start: 12-Aug-2023 Intent [employer].; [place] Self Representation Document Preparation, [employer]. Start: 07-13-2023 Ct thorax w/o contrast material LOW-DOSE COMPUTED TOMOGRAPHY (LDCT) OF CHEST WITHOUT CONTRAST FOR SCREENING FOR MALIGNANT NEOPLASM OF LUNG (44078) Start: 13-Jul-2023 Intent [facility] [employer].; [facility] [employer] [facility] [place]. Start: 06-04-2023 Non-invasive physiologic study extremity 3 levls PERIPHERAL ARTERIAL STUDY, UPPER OR LOWER, UNI- OR BI- LATERAL (84755) : Lower Start: 04-Jun-2023 Intent [facility] Hospital[facility] [place].; [facility] [employer] [facility] [place], [employer]. Start: 06-04-2023 Removal impacted cerumen instrumentation unilat REMOVAL OF IMPACTED CERUMEN (61543) Start: 04-Jun-2023 Intent [facility] Hospital[facility]Inter[facility] The[facility].; [facility] [employer] [facility] [place], [employer]. Start: 06-04-2023 Visit to determ ldct elig COUNSELING VISIT TO DISCUSS NEED FOR LUNG CANCER SCREENING USING LOW DOSE CT SCAN (LDCT) (SERVICE IS FOR ELIGIBILITY DETERMINATION AND SHARED DECISION MAKING) (G0296) Start: 04-Jun-2023 Intent [facility] Hospital[facility].; [facility] [employer], [employer]. Start: 06-04-2023 Comprehensive metabolic panel CMP - COMPREHENSIVE METABOLIC PANEL (61150) Start: 04-Jun-2023 9:58 Request [employer].; [facility] [employer], [employer]. Start: 06-04-2023 Assay of thyroid stimulating hormone tsh TSH (THYROID STIMULATING HORMONE) (82008) Start: 04-Jun-2023 9:58 Request [facility] [employer].; [facility] [employer], Inc. Start: 06-04-2023 Blood count complete auto&auto difrntl wbc CBC, PLATELETS & AUT DIFF (51230) Start: 04-Jun-2023 9:58 Request [facility] [employer].; [facility] [employer], [employer]. Start: 06-04-2023 Lipid panel LIPID PANEL (74957) Start: 04-Jun-2023 9:57 Request [employer].; [facility] [employer], Inc. Start: 06-28-2022 Hemoglobin glycosylated a1c HGB A1C (95714) Start: 28-Jun-2022 16:08 Request [employer].; [place] [employer]. Start: 06-28-2022 Dilated retinal exam w/evidence of retinopathy DILATED EYE EXAMINATION PERFORMED by EYE in last 12 months() Start: 28-Jun-2022 Intent [employer]; [facility] [employer] [facility] [employer]. Start: 01-25-2022 Patient Education Exercise: for maintaining health (Z71.82) Indication: Body mass index (BMI) exceeds 25 (Z71.82) (Z71.3 (Renamed from Body mass index (BMI) greater than 25) Start: 25-Jan-2022 Instruction Type: Patient Education [employer]; [facility] [employer] [facility] [employer]. Start: 11-22-2016 Patient Education WARTS - PLANTAR Indication: Plantar wart of right foot Start: 22-Nov-2016 Instruction Type: Patient Education [employer].; [employer]. Start: 11-22-2016 Us abdominal real time w/image documentation US ABDOM, COMPLETE (83314) Start: 22-Nov-2016 [facility] [employer]; [employer]. Work Phone: Start: 01-02-2011 Patient Education [facility] [employer]; [facility] [employer] Immunizations Immunization Date Immunization Notes Care Provider Harika mccormick 10-13-2021 influenza, injectabl e, quadrivalent, preservative free TE URRUTIA-Wendi Work Phone: [employer]; [employer] [facility] [employer] Payers Date Payer Category Payer Unknown [id number] Private Health Insurance [id number] Social History Date Type Detail Facility Alcohol Use: Alcohol Use: ; 1 to 7 drinks per week. 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 [employer]; [facility] Highest Education Le bryan Attained: Highest Education Level Attained: ; High school graduate. [facility]; [facility] Marital status: Marital status: ; . [facility].; [facility], [facility] Tobacco use: Tobacco use: ; S mokes 2 packs of cigarettes per day. [facility].; [facility]. [facility].; [facility], [facility] Work Phone: Smokes 2 packs o f cigarettes per day [facility].; [facility]. Work Phone: Full-time [facility].; [facility]. Work Phone: Self-employed [facility]; [facility], [facility]. Work Phone: High school graduate [facility].; [facility] Work Phone: Occasional alcohol use [facility].; [facility], [facility]. Work Phone: [facility]; [facility]. Work Phone: Summary Purpose Family History Father Status:Active Comments:In good health. hypertension Mother Status:Active Comments:In poor health. CVA Sister (s) Status:Active Comments:In good health. 1 Father Status:Active Comments:In good health. hypertension Mother Status:Active Comments:In poor health. CVA Sister (s) Status:Active Comments:In good health. 1 Father Status:Active Comments:In good health. hypertension Mother Status:Active Comments:In poor health. CVA Sister (s) Status:Active Comments:In good health. 1 Advance Directives No Advanced Directives Records FoundNo Advanced Directives Records Found Additional Source Comments (unrecognized sect ion and content) No Status Records FoundNo Status Records Found INFORMATION SOURCE (unrecogn ized section and content) DATE CREATED AUTHOR AUTHOR'S COLT TAVARES 11/12/2023 [facility] FOR RECORDS PERTAINING TO PATIENTS [...] BE BASED ON THE PRIMARY CLINICAL RECORDS. [employer] provides no warranty or guarantee of the accuracy or completeness of information in this document.
--- NOTE | 2024-01-02 09:33 | PCM.HP.BLA ---
History and Physical Date of Admission: 01/02/24 Date of Service: 11/28/23 MR#: [id number] Acct: [id number] Name: KEATON COLLAZO Rep #: [id number] : 1960 Provider: Dr. Inder Lemos MD Age/Sex: 63/M Location: [facility] Status: Signed Intake Vital Signs 07/30/2309:10 11/28/2414:18 Height 5 ft 10 in 5 ft 10 in Weight: 208 lb BMI 29.8 BP 138/75 H Blood Pressure Location Rt brachial Position Sitting Respiration 17 Pulse 76 Pulse Source Monitor Pulse Oximetry (%) 96 Oxygen Delivery Method room air Intake Visit Reasons: LIPOMA ON NECK/BACK & COLONOSCOPY Chief Complaint: c-scope, lipomas on neck/back Is patient in pain?: No Allergies No Known Allergies Allergy (Verified 11/28/23 13:49) Medications hydrochlorothiazide 50 mg tablet 50 mg PO QAM 07/29/23 [History Confirmed 11/28/23] aspirin 81 mg tablet,delayed release (Adult Aspirin Regimen) 81 mg PO DAILY #30 tabs 07/30/23 [Rx Confirmed 11/28/23] atorvastatin 40 mg tablet 40 mg PO DAILY #30 tabs 07/30/23 [Rx Confirmed 11/28/23] cilostazol 50 mg tablet 50 mg PO BID #60 tabs 07/30/23 [Rx Confirmed 11/28/23] PFSH Medical History Bilateral calf pain Diabetes mellitus Dyspnea on exertion Heartburn History of colon polyps Hypertension Smoker Family History Mother Diabetes Heart disease Hypertension CVA (cerebral vascular accident)Other Myocardial infarction Social History Smoking Status: Current every day smoker Tobacco: How many years used: 48 alcohol intake: current alcohol intake frequency: holidays/special occasions only HPI HPI HPI: Patient is a 63 male who presents for need to schedule surveillance colonoscopy secondary to history of adenomatous polyps. They are referred for surgical consultation from Dr. Montes. Patient has had prior colonoscopy in [address] Sebastian. The results of prior scope were: Single adenomatous polyp of the sigmoid colon and a recommended interval for follow-up was 5 years. However, patient states that he was not about to come to the hospital during the COVID pandemic unless he was dying . Patient has no personal history of colon cancer, inflammatory bowel disease, or diverticulitis. They describe their bowel habits as normal. They have approximately 1 per day and spend roughly 30 minutes on the toilet with some occasional significant straining (Mr. Collazo shares that this is one of the places in his house where he likes to smoke). They have not noticed recent bleeding or dark stools. They do not regularly take fiber supplements. Patient has no family history of colon cancer, inflammatory bowel disease, or diverticulitis. The patient's weight is stable. The patient is not prescribed anticoagulants/blood thinners (his only medication like this is a daily aspirin). Patient does have a significant history of heartburn which she states occurs a couple of times per week. He distinguishes this from reflux and shares this symptom occurs less than 1 time per week and is treated with [id number] Tums which she has not taken in approximately 3 months. He has not undergone prior EGD. He denies any difficulty swallowing. Patient does have a longstanding history of smoking and is not inclined to quit Lastly, we discussed during today's visit patient has had progressive growth of a right lower neck, left flank, and left thumb lipomatous masses. He wishes for these to be removed before the continue to grow larger. He denies any significant pain. ROS General General: Yes fatigue; No weight change, appetite, colon cancer, breast cancer or weakness HEENT HEENT: No difficulty swallowing, eye injury, eye surgery, swollen glands or hoarseness Endo Endocrine: No thyroid disease, diabetes mellitus, thyroid cancer, Hair loss, heat intolerance or cold intolerance Skin Skin: No rash or changing moles Musc Musculoskeletal: No back problems, arthritis, rheumatoid arthritis, gout or joint pain Cardio Cardiovascular: Yes high blood pressure; No murmur, pacemaker, heart disease, atrial fibrillation, heart attack, heart stent, palpitations, shortness of breat with exertion or chest pain Psych Psychiatric: No depression, anxiety or hearing voices Resp Respiratory: No shortness of breath, No sleep apnea, No cough, No COPD, No asthma, No emphysema and No wheezing Gastro Gastrointestinal: No abdominal pain, No nausea or vomiting, No diarrhea, No constipation, No blood in stool, No acid reflux, No hemorrhoids, No ulcers, No gallbladder problem and No black,tarry stools Andrew Hematologic: No blood thinners, No blood disorders, No bleeding, No anemia and No blood clots Neuro Neurologic: No system reviewed and no additional complaints, except as documented, No as per HPI, No abnormal gait, No abnormal hearing, No abnormal movements, No abnormal speech, No behavioral changes, No burning sensations, No confusion, No convulsions, No disequilibrium, No dizziness, No localized weakness, No frequent falls, No headache(s), No lack of coordination, No loss of vision, No memory loss, No numbness, No other visual disturbances, No radicular pain, No restless legs, No sensory deficit, No syncope, No tingling, No tremor(s), No weakness and No other Exam Const General: cooperative and no acute distress Orientation: alert, awake and oriented x3 GI Other: Soft, nondistended, nontender to palpation x 4 quadrants. Skin Other: 6 to 8 cm lipoma of the right posterior lower neck, approximately 12 cm lipoma of the left flank, and nodular area (difficult to determine underlying tissue type) of the left thumb along the proximal phalanx adjacent to the interphalangeal joint Assessment and Plan Assessment and Plan (1) History of colon polyps: Status: Acute Comment: This is a 63-year-old male (who appears to be at rather at risk for colon cancer based on history) with no recent changes to his bowel habits, who does have a history of adenomatous polyps?last addressed at colonoscopy in 2017 at an outside facility. However, I have obtained outside records from patient's prior procedure and the endoscopist identified a 4 mm tubular adenoma of the sigmoid colon. 5-year follow-up was given at that time but it was delayed on the account of the COVID pandemic. Patient now wishes to go through with his surveillance. I agree with the indication and have described a 2-day bowel prep as well as the remainder of the procedure to the patient. He wishes to be under way with this procedure soon as possible. We will look for a date. Plan: Plan will be to complete colonoscopy on first mutually agreeable date under local MAC. Pre-procedure prep discussed and paper instructions provided. Patient is also made aware that he will need to have a bobcat driver/labor with him the day of the procedure. (2) Heartburn: Status: Chronic Comment: This is a 63-year-old, , male with history of long-term smoking habit who has regular episodes of heartburn (and less frequently reflux). Given his demographic and tobacco habit I have recommended we proceed with screening EGD for Nielson's esophagus. Patient is receptive of this recommendation and therefore we will plan to proceed with this procedure in conjunction with colonoscopy discussed above. Plan: Nielson's screening EGD in conjunction with surveillance colonoscopy (3) Lipoma: Status: Acute Comment: Clinically?confirmed lipomas of the right posterior neck and left flank. Patient also suspects possible lipoma of left thumb. To the latter, I have shared this is both an unusual location and his exam is not fully convincing. Therefore, I am recommending further imaging before proceeding with an operation. If there is any question as to the diagnosis or proximity to the joint then I would defer management of the thumb lesion to another specialist. However, I would plan to address patient's neck and flank lipomas in the operating room given their size and possibility of significant depth. Plan: ? Ultrasound imaging of right posterior neck, left flank, and left thumb to assess for likelihood that all areas represent lipomas and to assess the extent of depth/relationship to other anatomy ? Will await above imaging before operative planning Orders: I have examined the patient and the H&P has been reviewed. There are no clinical changes since date of exam. Patient confirms that he completed a prep in anticipation of today's procedure and that his output is now liquidy. He states that there is some brown content to it. He otherwise denies any changes to his health history and shares that he is intent on following through with his lipoma removal to after he completes a vascular procedure next week. He denies any further questions about today's procedure so we will proceed to the endoscopy suite for upper endoscopy to screen for Nielson's and lower endoscopy as surveillance from his 2017 scope which found a sigmoid tubular adenoma.
--- NOTE | 2024-01-02 09:45 | COLBX_PTH ---
PATHOLOGY RESULTS PATIENT: KEATON HARLEY LOC: EN U#:[id number] AGE/SX: 63/M ROOM: RE01/02/[address]: Dr. Inder Lemos MD : 1960 BED: DIS: 01/02/2024 SPEC #: [id number] RECD: 01/02/24 13:15 STATUS: DEANA JODEE #: [id number] GEETA: 01/02/24 09:[address]: Inder Lemos DEPT: SURGICAL PATHOLOGY RECD BY: Soha Jones ENTERED: 01/02/24 13:17 SP TYPE: COLON BX OTHR DR: Natalia Henry, INFERTILITY NURSE-C Tissues: Pyloric portion of stomach Gastric mucous membrane Gastric mucous membrane Gastric mucous membrane Esophageal mucous membrane Esophageal mucous membrane Esophageal mucous membrane Procedures: Special Stain Group II Surgery Specimen Level IV Alcian Blue/PAS (control) HEADER OPERATION: Colonoscopy, EGD with biopsies PRE-OP DIAGNOSIS: History of colon polyps, heartburn, lipoma TISSUE SUBMITTED: A - Pyloric nodule biopsy, B - Antrum biopsy for H. pylori and path, C - Anterior wall abnormal mucosa biopsy, D - Cardia nodule biopsy, E - Z-line biopsy, F - Esophageal plaque biopsy, G - Esophageal nodule biopsy MICROSCOPIC DIAGNOSIS A. Pyloric nodule, biopsy: Mild gastritis. Focal intestinal metaplasia (goblet cell metaplasia). See microscopic description and comment. B. Antrum, biopsy: Mild gastritis. See microscopic description and comment. C. Anterior wall abnormal mucosa, biopsy: Mild gastritis. See microscopic description. D. Cardia nodule, biopsy: Focal changes consistent with hyperplastic/inflammatory polyp. E. Z-line, biopsy: Fragments of gastroesophageal mucosa with focal intestinal metaplasia (goblet cell metaplasia), consistent with Nielson's esophagus. Chronic inflammation. Indefinite for low grade dysplasia. See comment. F. Esophageal plaque, biopsy: Fragments of benign squamous epithelium. G. Esophageal nodule, biopsy: A fragment of benign gastric mucosa with minimal chronic inflammation. Intestinal metaplasia (goblet cell metaplasia) not identified. See comment. SJ:erin 01/03/2024 COMMENT A. Alcian blue/PAS stain with matched control is used in the evaluation of the specimen. B. The results of immunohistochemistry for Helicobacter pylori will be reported separately ([id number]). E. Alcian blue/PAS stain with matched control is used in the evaluation of the specimen. Immunohistochemistry ([id number]) for P53 and Ki-67 will be performed and results will be reported separately. G. Alcian blue/PAS stain with matched control is used in the evaluation of the specimen. Case has been reviewed in consultation with Dr. Meza who concurs with the above diagnosis. IDC:AM MICROSCOPIC DESCRIPTION Slides are reviewed. A. The specimen shows fragments of gastric mucosa with chronic inflammatory cell infiltrates in the lamina propria consisting of lymphocytes and plasma cells, consistent with mild chronic gastritis. Focal intestinal metaplasia is also noted. B & C. The specimen shows fragments of gastric mucosa with chronic inflammatory cell infiltrates in the lamina propria consisting of lymphocytes and plasma cells, consistent with mild chronic gastritis. GROSS DESCRIPTION A - Received in fixative is one container labeled with the patient's name and designated pyloric nodule biopsy. The specimen consists of two irregular fragments of light west soft tissue that in aggregate measure 0.4 x 0.4 x 0.1 cm. The specimen is totally submitted in one cassette. B - Received in fixative is one container labeled with the patient's name and designated antrum biopsy. The specimen consists of one irregular fragment of light west soft tissue that measures 0.4 x 0.3 x 0.1 cm. The specimen is totally submitted in one cassette. C - Received in fixative is one container labeled with the patient's name and designated anterior wall abnormal mucosal biopsy. The specimen consists of multiple irregular fragments of light west soft tissue that in aggregate measure 0.6 x 0.5 x 0.1 cm. The specimen is totally submitted in one cassette. D - Received in fixative is one container labeled with the patient's name and designated cardia nodule biopsy. The specimen consists of multiple irregular fragments of light west soft tissue that in aggregate measure 1.0 x 0.3 x 0.1 cm. The specimen is totally submitted in one cassette. E - Received in fixative is one container labeled with the patient's name and designated Z line biopsy. The specimen consists of multiple irregular fragments of light west soft tissue that in aggregate measure 1.0 x 0.2 x 0.1 cm. The specimen is totally submitted in one cassette. F - Received in fixative is one container labeled with the patient's name and designated esophageal plaque biopsy. The specimen consists of two irregular fragments of light west soft tissue that in aggregate measure 0.5 x 0.4 x 0.1 cm. The specimen is totally submitted in one cassette. G - Received in fixative is one container labeled with the patient's name and designated esophageal nodule biopsy. The specimen consists of one irregular fragment of light west soft tissue that measures 0.3 x 0.3 x 0.1 cm. The specimen is totally submitted in one cassette. / SJ:rg 01/02/2024 TC:3 CPT: 42108 x7, 57512 x3
--- NOTE | 2024-01-02 09:45 | IMM_PTH ---
PATHOLOGY RESULTS PATIENT: KEATON HARLEY LOC: EN U#:[id number] AGE/SX: 63/M ROOM: RE01/02/[address]: Dr. Inder Lemos MD : 1960 BED: DIS: 01/02/2024 SPEC #: [id number] RECD: 01/02/24 14:02 STATUS: DEANA REQ #: [id number] GEETA: 01/02/24 09:[address]: Inder Lemos DEPT: IMMUNOHISTOCHEMISTRY RECD BY: Milagro Bermudez ENTERED: 01/02/24 14:03 SP TYPE: IMMUNO OTHR DR: Natalia Henry, DOLL WIGS HACKLER-C Tissues: Stomach, NOS Stomach, NOS Procedures: H Pylori (initial) P53 (initial) KI-67 (add) PHYSICIAN & INSTITUTION [place] [id number] SPECIMEN INFORMATION: Tissue Source: B - Antrum, E - Z-line Clinical Info: History of colon polyps, heartburn, lipoma Specimen Number: [id number] B & E CPT code: 03684 x2, 75363 METHODOLOGY: Deparaffinized sections of prefer/formalin-fixed tissue or PAP/DQ stained slides are incubated with monoclonal/polyclonal antibodies/oligonucleotide probes. Localization is made via biotin free immunoperoxidase method. Appropriate controls are performed and reacted as expected. Results on target cell population are indicated in the following table: RESULTS: ANTIBODY / CLONE RESULT Block B H Pylori (polyclonal) negative Block E P53 (DO-7) positive, focal (indeterminate pattern) Ki-67 (30-9) positive, low These tests were developed and their performance characteristics determined by [facility]. They may not have been cleared or approved by the U.S. Food and Drug Administration. The FDA has determined that such clearance or approval is not necessary. The above immunohistochemical/dualISH markers are ordered and reviewed by the Pathologist. INTERPRETATION: B. Antrum, biopsy: Negative for Helicobacter pylori organisms. E. Z-line, biopsy: Indefinite for low-grade dysplasia. SJ:erin 01/06/2024 Case has been reviewed in consultation with Dr. Meza who concurs with the above diagnosis. IDC:AM
[2024-01-02 10:56] VITALS: BP 144/56; BP 158/74; PULSE 50; RESP 16; TEMP 36.1; O2SAT 97
[2024-01-02 11:00] VITALS: BP 126/71; BP 158/74; PULSE 63; RESP 16; O2SAT 98
[2024-01-02 11:06] VITALS: BP 111/78; BP 158/74; PULSE 67; RESP 16; TEMP 36.1; O2SAT 97
--- NOTE | 2024-01-02 11:06 | OP.EGD_ITS ---
Patient Name: Jamey Collazo Procedure Date: 01/02/2024 9:32 AM Date of : 1960 Age: 63 Procedure: Upper GI endoscopy Indications: Screening for Nielson's esophagus in patient at risk for this condition Providers: Inder Lemos MD Referring MD: Blanca Jernigan Medicines: See the Anesthesia note for documentation of the administered medications Patient Profile: Refer to note in patient chart for documentation of history and physical. Complications: No immediate complications. Estimated blood loss: Minimal. Procedure: Pre-Anesthesia Assessment: - The heart rate, respiratory rate, oxygen saturations, blood pressure, adequacy of pulmonary ventilation, and response to care were monitored throughout the procedure. After obtaining informed consent, the endoscope was passed under direct vision. Throughout the procedure, the patient's blood pressure, pulse, and oxygen saturations were monitored continuously. The Endoscope was introduced through the mouth, and advanced to the second part of duodenum. The upper GI endoscopy was accomplished without difficulty. The patient tolerated the procedure fairly well. Scope In: 9:41:56 AM Scope Out: 10:11:04 AM Total Procedure Duration Time 0 hours 29 minutes 8 seconds Findings: No gross lesions were noted in the duodenal bulb, in the first portion of the duodenum and in the second portion of the duodenum. No biopsies or other specimens were collected for this exam. A single 3 mm mucosal papule (nodule) with no bleeding and no stigmata of recent bleeding was found at the pylorus. Biopsies were taken with a cold forceps for histology. Estimated blood loss was minimal. Localized mildly erythematous mucosa without bleeding was found in the gastric antrum. Biopsies were taken with a cold forceps for Helicobacter pylori testing. Estimated blood loss was minimal. Localized mild mucosal changes characterized by discoloration and beige plaques were found on the anterior wall of the stomach. Biopsies were taken with a cold forceps for histology. Estimated blood loss was minimal. A few 3 to 4 mm mucosal papules (nodules) with no bleeding and no stigmata of recent bleeding were found in the cardia. Biopsies were taken with a cold forceps for histology. Estimated blood loss: 3 mL. The Z-line was irregular and was found 42 cm from the incisors. Biopsies were taken with a cold forceps for histology. Estimated blood loss was minimal. Multiple 2 to 5 mm plaques were found in the middle third of the esophagus. Biopsies were taken with a cold forceps for histology. Impression: - No gross lesions in the duodenal bulb, in the first portion of the duodenum and in the second portion of the duodenum. No specimens collected. - A single mucosal papule (nodule) found in the stomach. Biopsied. - Erythematous mucosa in the antrum. Biopsied. - Discoloration and beige plaques mucosa in the anterior wall of the stomach. Biopsied. - A few mucosal papules (nodules) found in the stomach. Biopsied. - Z-line irregular, 42 cm from the incisors. Biopsied. - Multiple plaques in the middle third of the esophagus. Biopsied. Recommendation: - Discharge patient to home (via wheelchair). - Resume previous diet today. - Use Protonix (pantoprazole) 40 mg PO BID today. - Continue present medications. - No aspirin, ibuprofen, naproxen, or other non-steroidal anti-inflammatory drugs for 2 days. Procedure Code(s): --- Professional --- 39412, Esophagogastroduodenoscopy, flexible, transoral; with biopsy, single or multiple Diagnosis Code(s): --- Professional --- K31.89, Other diseases of stomach and duodenum K22.89, Other specified disease of esophagus Z13.810, Encounter for screening for upper gastrointestinal disorder CPT copyright 2021 [employer]. All rights reserved. The codes documented in this report are preliminary and upon herb counselor review may be revised to meet current compliance requirements. Inder Lemos MD 01/02/2024 11:05:34 AM This report has been signed electronically. Number of Addenda: 0 Note Initiated On: 01/02/2024 9:32 AM
--- NOTE | 2024-01-02 11:06 | OP.CCLET_ITS ---
01/02/2024 Blanca Jernigan Re : Upper GI endoscopy procedure for Jamey Collazo Dear Carl This procedure was performed on December. My impressions and recommendations are as follows: Impressions : - No gross lesions in the duodenal bulb, in the first portion of the duodenum and in the second portion of the duodenum. No specimens collected. - A single mucosal papule (nodule) found in the stomach. Biopsied. - Erythematous mucosa in the antrum. Biopsied. - Discoloration and beige plaques mucosa in the anterior wall of the stomach. Biopsied. - A few mucosal papules (nodules) found in the stomach. Biopsied. - Z-line irregular, 42 cm from the incisors. Biopsied. - Multiple plaques in the middle third of the esophagus. Biopsied. Recommendations : - Discharge patient to home (via wheelchair). - Resume previous diet today. - Use Protonix (pantoprazole) 40 mg PO BID today. - Continue present medications. - No aspirin, ibuprofen, naproxen, or other non-steroidal anti-inflammatory drugs for 2 days. My findings are described in the full procedure note, which is enclosed. If I can be of further assistance, please feel free to contact me at Doctor phone number(s): , Work: . Sincerely, Inder Lemos MD 01/02/2024 11:05:34 AM This report has been signed electronically.
--- NOTE | 2024-01-02 11:10 | OP.COLON_ITS ---
Patient Name: Jamey Collazo Procedure Date: 01/02/2024 10:16 AM Date of : 1960 Age: 63 Procedure: Colonoscopy Indications: High risk colon cancer surveillance: Personal history of non-advanced adenoma Providers: Inder Lemos MD Referring MD: Blanca Jernigan Medicines: See the Anesthesia note for documentation of the administered medications Patient Profile: Refer to note in patient chart for documentation of history and physical. Last Colonoscopy: 7years ago. Complications: No immediate complications. Estimated blood loss: None. Procedure: Pre-Anesthesia Assessment: - The heart rate, respiratory rate, oxygen saturations, blood pressure, adequacy of pulmonary ventilation, and response to care were monitored throughout the procedure. After I obtained informed consent, the scope was passed under direct vision. Throughout the procedure, the patient's blood pressure, pulse, and oxygen saturations were monitored continuously. The Colonoscope was introduced through the anus and advanced to the cecum, identified by appendiceal orifice and ileocecal valve. The colonoscopy was somewhat difficult due to poor bowel prep, significant looping and the patient's cardiovascular instability (vasovagal reaction). Successful completion of the procedure was aided by changing the patient to a supine position, lavage and managing the patient's medical instability. The patient tolerated the procedure fairly well. Scope In: 10:17:09 AM Scope Withdrawal Time 0 hours 21 minutes 32 seconds Scope Out: 10:52:20 AM Total Procedure Duration Time 0 hours 35 minutes 11 seconds Findings: The perianal and digital rectal examinations were normal. The entire examined colon appeared normal on direct and retroflexion views. Impression: - The entire examined colon is normal on direct and retroflexion views. - No specimens collected. Recommendation: - Discharge patient to home (via wheelchair). - Resume previous diet today. - Continue present medications. - Repeat colonoscopy in 5 years for surveillance. - Telephone my office for study results in 1 week. Procedure Code(s): --- Professional --- G0105, Colorectal cancer screening; colonoscopy on individual at high risk Diagnosis Code(s): --- Professional --- Z86.010, Personal history of colonic polyps CPT copyright 2021 [employer]. All rights reserved. The codes documented in this report are preliminary and upon channel marketing manager review may be revised to meet current compliance requirements. Inder Lemos MD 01/02/2024 11:10:24 AM This report has been signed electronically. Number of Addenda: 0 Note Initiated On: 01/02/2024 10:16 AM
--- NOTE | 2024-01-02 11:11 | OP.CCLET_ITS ---
01/02/2024 Blanca Jernigan Re : Colonoscopy procedure for Jamey Collazo Dear Carl This procedure was performed on December. My impressions and recommendations are as follows: Impressions : - The entire examined colon is normal on direct and retroflexion views. - No specimens collected. Recommendations : - Discharge patient to home (via wheelchair). - Resume previous diet today. - Continue present medications. - Repeat colonoscopy in 5 years for surveillance. - Telephone my office for study results in 1 week. My findings are described in the full procedure note, which is enclosed. If I can be of further assistance, please feel free to contact me at Doctor phone number(s): , Work: . Sincerely, Inder Lemos MD 01/02/2024 11:10:24 AM This report has been signed electronically.
[2024-01-02 11:24] VITALS: BP 158/74
== END 2024-01-02 11:32 | disposition home or self-care (01) ==
LOC: EN 08:44 → AC 08:47
PROVIDERS: PCP Nurse Practitioner Family; Referring Provider Nurse Practitioner Family; Visit Provider Surgery
PROC: 0DJD8ZZ Inspection of Lower Intestinal Tract, Via Natural or Artificial Opening Endoscopic (ICD-10-PCS; CPT 45378; principal; 2024-01-02 09:40)
DX: Z12.11 Encounter for screening for malignant neoplasm of colon (principal); E11.9 Type 2 diabetes mellitus without complications; Z86.010 Personal history of colon polyps; I10 Essential (primary) hypertension; F17.200 Nicotine dependence, unspecified, uncomplicated; K22.70 Barrett's esophagus without dysplasia; Z79.82 Long term (current) use of aspirin; Z79.899 Other long term (current) drug therapy; D17.0 Benign lipomatous neoplasm of skin and subcutaneous tissue of head, face and neck; D17.79 Benign lipomatous neoplasm of other sites; K29.70 Gastritis, unspecified, without bleeding; K22.89 Other specified disease of esophagus; E78.00 Pure hypercholesterolemia, unspecified
CPT/HCPCS: 43239; 45378; 88305; 88307; 88313; 88341; 88342; J7120; J2405

== ENCOUNTER 2024-01-08 08:26 | Day surgery (SDC) | payer OTHER, SELFPAY ==
[2024-01-07 08:02] VITALS: BMI 29.8
[2024-01-08 08:44] LABS: Hematocrit 47.1 % (40-54); Hemoglobin 16.2 g/dL (13.0-16.5); Mean Corp Hgb Conc 34.4 g/dL (32-36); Mean Corpuscular Hgb 30.7 pg (27.0-32.0); Mean Corpuscular Volume 89.4 fL (80-94); Mean Platelet Vol. 9.5 fl (6.2-12.0); Platelet Count 233 K/mm3 (150-450); RBC Distribution Width SD 42.8 fl (35.1-43.9); Red Blood Count 5.27 M/mm3 (4.6-6.2); White Blood Count 6.7 K/mm3 (4.4-11.0)
--- OUTSIDE RECORDS SUMMARY | 2024-01-08 08:51 | XMS RPT_ITS | CCD ---
Author Name Unknown Address [id number] [place] [address] Organization [facility] Care Team Providers Care Transfusion Aide Name Role Phone Vee SUAREZ Attending Unavailable Vee SUAREZ Primary Care Unavailable Vee SUAREZ Admitting Unavailable ISAURO MORALES Consulting Unavailable PROVIDER, UNKNOWN Consulting Unavailable PROVIDER, UNKNOWN Consulting Unavailable PROVIDER, UNKNOWN Consulting Unavailable TE JUNIOR Unavailable SILVESTRE TORRES Unavailable CLIFFORD Unavailable Unavailable CARDIOLOGY, GENERAL Unavailable Unavailable VASCULAR SURGEON, GENERAL Unavailable Unavai lable SURGERY, GENERAL Unavailable Unavailable RICHARD GENAO, SCOTT Melgar Unavailable [phone] Vee SUAREZ MD Unavailable Yoni WAY MD Unavailable CAMILO MAN MD Unavailable [phone] Diana Kevin RN Unavailable Unavailable Jose D GEORGE, Korin Unavailable Unavaila SUMAN Paz Unavailable Unavailable Twan GEORGE, Brittney Unavailable Unavailable ISAURO MORALES MD Unavailable [phone] SANTOS JIMENEZ RN Unavailable Unavailable ANDREW PHELAN [...] for you with the vascular surgeon in [place]. Please let us know if we may [...] would like for you to see a electron beam welder setter. Please let me know if you would [...] Body height 180.34 cm Brittney Trent [facility] 12-17-2023 10:58-0500 Body mass index (BMI) [Ratio] 29.76 kg/m2 Brittney Trent RN [facility]. 12-17-2023 10:58-0500 Body surface area Derived from formula 2.17 m2 Brittney Trent RN [facility]. 12-17-2023 10:58-0500 Body weight 96.79 kg Brittney Trent RN [facility], [employer].; [facility], [facility]. 12-17-2023 10:58-0500 Diastolic blood pressure 69 mm[Hg] Brittney Trent RN [facility] [employer] [facility] Encounters Encounter Date Encounter Type Care Provider Facility Start: 12-17-2023 End: 12-17-2023 Office outpatient visit 15 minutes TE PATEL HOGSHEAD STOCK CLERK-C Work Phone: [facility] Start: 11-12-2023 ambulatory R [facility] Start: 11-12-2023 End: 11-12-2023 Office outpatient visit 15 minutes TE PATEL HOGSHEAD STOCK CLERK-C Work Phone: [facility] Start: 11-07-2023 End: 11-07-2023 Medication Refill/Order TE LINTETTER HOGSHEAD STOCK CLERK-C Work Phone: [facility] Start: 10-05-2023 End: 10-05-2023 Medication Refill/Order TE HOFSTETTER HOGSHEAD STOCK CLERK-C Work Phone: [facility] Start: 07-13-2023 End: 07-13-2023 Procedure Order TE PATEL HOGSHEAD STOCK CLERK-C [facility] Start: 07-13-2023 End: 07-13-2023 Patient encounter procedure TE PATEL HOGSHEAD STOCK CLERK-C [facility] Start: 07-01-2023 End: 07-01-2023 Patient encounter procedure TE PATEL HOGSHEAD STOCK CLERK-C [facility] Start: 06-04-2023 End: 06-04-2023 Office outpatient visit 25 minutes TE DLEGADOBRAVO HOGSHEAD STOCK CLERK-C Work Phone: [facility] Start: 10-25-2022 End: 10-25-2022 Office outpatient visit 10 minutes TE DELGADOBRAVO HOGSHEAD STOCK CLERK-C [facility] Start: 06-28-2022 End: 06-28-2022 Office outpatient visit 15 minutes TE PATEL HOGSHEAD STOCK CLERK-C [facility] Start: 03-01-2022 End: 03-01-2022 Transition of Care TE DELGADOBRAVO HOGSHEAD STOCK CLERK-C [facility] Start: 02-08-2022 End: 02-08-2022 Patient encounter procedure TE PATEL HOGSHEAD STOCK CLERK-C Work Phone: [facility] Start: 01-28-2022 End: 01-28-2022 Follow-up encounter TE PATEL HOGSHEAD STOCK CLERK-C Work Phone: [facility] Start: 01-25-2022 End: 01-25-2022 Addendum to visit TE PATEL HOGSHEAD STOCK CLERK-C Work Phone: [facility] Start: 01-25-2022 End: 01-25-2022 Office outpatient visit 15 minutes TE PATEL HOGSHEAD STOCK CLERK-C Work Phone: [facility] Start: 10-14-2021 End: 10-16-2021 Results Review TE PATEL HOGSHEAD STOCK CLERK-C Work Phone: [facility] Start: 10-13-2021 End: 10-13-2021 Office outpatient visit 15 minutes TE PATEL HOGSHEAD STOCK CLERK-C Work Phone: [facility] Start: 05-23-2017 End: 05-23-2017 Office outpatient visit 15 minutes TE PATEL HOGSHEAD STOCK CLERK-C Work Phone: [facility] Start: 02-14-2017 End: 02-14-2017 Office outpatient visit 15 minutes TE DELGADOER HOGSHEAD STOCK CLERK-C Work Phone: [facility] Start: 11-29-2016 End: 11-29-2016 Results Review TE PATEL HOGSHEAD STOCK CLERK-C Work Phone: [facility] Start: 11-23-2016 End: 11-23-2016 Nutrition therapy TE PATEL HOGSHEAD STOCK CLERK-C Work Phone: [facility] Start: 11-22-2016 End: 11-22-2016 Office outpatient new 30 minutes TE PATEL HOGSHEAD STOCK CLERK-C Work Phone: [facility] [employer] [facility] Start: 01-26-2011 End: 01-26-2011 Patient encounter procedure TE PATEL HOGSHEAD STOCK CLERK-C Work Phone: [employer] [facility] Start: 01-23-2011 End: 01-23-2011 Medication Refill/Order TE BREAUXPETERSON HOGSHEAD STOCK CLERK-C Work Phone: [facility] Start: 01-12-2011 End: 01-12-2011 Patient encounter procedure TE PATEL HOGSHEAD STOCK CLERK-C Work Phone: [facility] Start: 01-10-2011 End: 01-10-2011 Medication Refill/Order TE BREAUXPETERSON HOGSHEAD STOCK CLERK-C Work Phone: [facility] Start: 01-05-2011 End: 01-05-2011 Patient encounter procedure TE DELGADOBRAVO HOGSHEAD STOCK CLERK-C Work Phone: [facility] Start: 01-02-2011 End: 01-02-2011 Patient encounter procedure TE DELGADOBRAVO HOGSHEAD STOCK CLERK-C Work Phone: [facility] Procedures Date Procedure Procedure Detail Performing Clinician [...] meds reconciled w/current med list TE PATEL HOGSHEAD STOCK CLERK-C Work Phone: Start: 05-11-2022 End: 05-11-2022 Echocardiography TE PATEL HOGSHEAD STOCK CLERK-C Work Phone: Plan of Treatment Date Care Activity Detail Author Start: 02-18-2024 FQ visit, [facility]; ESTABLISHED PATIENT ROUTINE VISIT - [employer]. Start: 18-Feb-2024 10:00 MD Vee SUAREZ Appointment Request [employer]. Start: 12-31-2023 Basic metabolic panel calcium total BMP (12470) Start: 31-Dec-2023 Request [employer].; [employer], [employer]. Start: 12-17-2023 [facility] visit, [facility]; ESTABLISHED PATIENT ROUTINE VISIT - [employer]. Start: 17-Dec-2023 11:00 MD Vee SUAREZ Appointment Request [employer]. Start: 11-26-2023 Blood count complete auto&auto difrntl wbc CBC, PLATELETS & AUT DIFF (15579) Start: 26-Nov-2023 Request [employer].; [employer]. Start: 11-26-2023 Comprehensive metabolic panel CMP - COMPREHENSIVE METABOLIC PANEL (35117) Start: 26-Nov-2023 Request [employer].; [employer], [employer]. Start: 11-26-2023 Hemoglobin glycosylated a1c HEMOGLOBIN GLYCLATED (HGB A1C) (20871) Start: 26-Nov-2023 Request [employer].; [employer] Start: 11-26-2023 Urine albumin quantitative URINARY ALBUMIN/CREATININE RATIO (90422) ([id number]) Start: 26-Nov-2023 Request [employer].; [employer] Start: 08-12-2023 Ct thorax w/o contrast material LOW-DOSE COMPUTED TOMOGRAPHY (LDCT) OF CHEST WITHOUT CONTRAST FOR SCREENING FOR MALIGNANT NEOPLASM OF LUNG (56130) Start: 12-Aug-2023 Intent [employer].; [place] - [employer], [place]. Start: 07-13-2023 Ct thorax w/o contrast material LOW-DOSE COMPUTED TOMOGRAPHY (LDCT) OF CHEST WITHOUT CONTRAST FOR SCREENING FOR MALIGNANT NEOPLASM OF LUNG (10424) Start: 13-Jul-2023 Intent [facility] [employer].; [facility] Start: 06-04-2023 Non-invasive physiologic study extremity 3 levls PERIPHERAL ARTERIAL STUDY, UPPER OR LOWER, UNI- OR BI- LATERAL (12336) : Lower Start: 04-Jun-2023 Intent [facility], [employer]. Start: 06-04-2023 Removal impacted cerumen instrumentation unilat REMOVAL OF IMPACTED CERUMEN (05822) Start: 04-Jun-2023 Intent [facility] [employer] [employer].; [facility], [employer]. Start: 06-04-2023 Visit to determ ldct elig COUNSELING VISIT TO DISCUSS NEED FOR LUNG CANCER SCREENING USING LOW DOSE CT SCAN (LDCT) (SERVICE IS FOR ELIGIBILITY DETERMINATION AND SHARED DECISION MAKING) (G0296) Start: 04-Jun-2023 Intent [facility].; [facility] [employer], [employer]. Start: 06-04-2023 Comprehensive metabolic panel CMP - COMPREHENSIVE METABOLIC PANEL (65265) Start: 04-Jun-2023 9:58 Request [employer].; [facility] [employer], [employer]. Start: 06-04-2023 Assay of thyroid stimulating hormone tsh TSH (THYROID STIMULATING HORMONE) (36947) Start: 04-Jun-2023 9:58 Request [facility] [employer].; [facility] [employer] Start: 06-04-2023 Blood count complete auto&auto difrntl wbc CBC, PLATELETS & AUT DIFF (00127) Start: 04-Jun-2023 9:58 Request [facility] [employer].; [facility] [employer], [employer]. Start: 06-04-2023 Lipid panel LIPID PANEL (63591) Start: 04-Jun-2023 9:57 Request [employer].; [facility] [employer] Start: 06-28-2022 Hemoglobin glycosylated a1c HGB A1C (51777) Start: 28-Jun-2022 16:08 Request [employer].; [place] [employer]. Start: 06-28-2022 Dilated retinal exam w/evidence of retinopathy DILATED EYE EXAMINATION PERFORMED by EYE in last 12 months() Start: 28-Jun-2022 Intent [employer]; [facility] [employer] [facility] [employer]. Start: 01-25-2022 Patient Education Exercise: for maintaining health (Z71.82) Indication: Body mass index (BMI) exceeds 25 (Z71.82) (Z71.3 (Renamed from Body mass index (BMI) greater than 25) Start: 25-Jan-2022 Instruction Type: Patient Education [employer]; [facility] [employer] [facility] [employer]. Start: 11-22-2016 Patient Education WARTS - PLANTAR Indication: Plantar wart of right foot Start: 22-Nov-2016 Instruction Type: Patient Education [employer].; [employer]. Start: 11-22-2016 Us abdominal real time w/image documentation US ABDOM, COMPLETE (56724) Start: 22-Nov-2016 [facility] [employer]; [employer]. Work Phone: Start: 01-02-2011 Patient Education [facility] [employer]; [employer] [facility] [employer] Immunizations Immunization Date Immunization Notes Care Provider Harika mccormick 10-13-2021 influenza, injectabl e, quadrivalent, preservative free TE URRUTIA-Wendi Work Phone: [employer]; [employer] [facility] [employer] Payers Date Payer Category Payer Unknown [id number] Private Health Insurance [id number] Social History Date Type Detail Facility Alcohol Use: Alcohol Use: ; 1 to 7 drinks per week. 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 [employer]; [facility] Highest Education Le bryan Attained: Highest Education Level Attained: ; High school graduate. [facility]; [facility] Marital status: Marital status: ; . [facility].; [facility], [facility] Tobacco use: Tobacco use: ; S mokes 2 packs of cigarettes per day. [facility]. [facility], [facility] Work Phone: Smokes 2 packs o f cigarettes per day [facility].; [facility]. Work Phone: Full-time [facility]. Work Phone: Self-employed [facility]; [facility], [facility]. Work Phone: High school graduate [facility] [employer] Work Phone: Occasional alcohol use [facility].; [facility], [facility]. Work Phone: [facility]; [facility]. Work Phone: Summary Purpose Family History [...] DATE CREATED AUTHOR AUTHOR'S COLT TAVARES 11/12/2023 [facility] FOR RECORDS PERTAINING TO PATIENTS WHO [...] BE BASED ON THE PRIMARY CLINICAL RECORDS. [employer] provides no warranty or guarantee of the accuracy or completeness of information in this document.
[2024-01-08 08:52] LABS: Anion Gap 3 (5-15); BUN 29 mg/dL (7-18); BUN/Creat Ratio 33.3 RATIO (10-20); Calcium,Total 9.4 mg/dL (8.5-10.1); Chloride 107 mmol/L (98-107); Creatinine, Serum 0.87 mg/dL (0.70-1.30); EST Glomerular Filtration Rate 94 mL/min (>60); Est Glom Filt Rate - Afr Amer 114 mL/min (>60); Estimated Creatinine Clearance 101.53 ml/min; Glucose 159 mg/dL (74-106); Potassium 3.9 mmol/L (3.5-5.1); Sodium Level 138 mmol/L (136-145)
--- NOTE | 2024-01-08 10:22 | HP.PCM_ITS ---
HPI - General HPI Narrative KEATON HARLEY, is a 63 M who presents with LLE claudication, popliteal occlusion [facility] Medical History (Updated 12/26/23 @ 14:44 by Aida Watts) Bilateral calf pain Diabetes mellitus Dyspnea on exertion Heartburn High cholesterol History of colon polyps History of pain when walking Hypertension No natural teeth Smoker Wears glasses Home Medications hydrochlorothiazide 50 mg tablet 50 mg PO QAM 07/29/23 [History Last Taken 01/08/24] aspirin 81 mg tablet,delayed release (Adult Aspirin Regimen) 81 mg PO DAILY #30 tabs 07/30/23 [Rx Last Taken 01/01/24] atorvastatin 40 mg tablet 40 mg PO DAILY #30 tabs 07/30/23 [Rx Last Taken 01/08/24] cilostazol 50 mg tablet 50 mg PO BID #60 tabs 12/18/23 [Rx Last Taken 01/08/24] losartan 100 mg tablet 100 mg PO DAILY 12/26/23 [History Last Taken 01/08/24] pantoprazole 40 mg tablet,delayed release (Protonix) 40 mg PO Q12H 14 days #28 tabs 01/02/24 [Rx Last Taken 01/08/24] Allergy/AdvReac Type Severity Reaction Status Date / Time No Known Allergies Allergy Verified 12/26/23 14:36 Family History Mother Diabetes Heart disease Hypertension CVA (cerebral vascular accident) Other Myocardial infarction Surgical History (Updated 12/26/23 @ 14:44 by Aida Watts) History of colonoscopy Social History Smoking Status: Current every day smoker tobacco type: cigarettes Tobacco: How many years used: 48 alcohol intake: current alcohol intake frequency: holidays/special occasions only ROS Constitutional Constitutional: Denies chills, fever(s), frequent falls, lethargy or weakness Eyes Eyes: Denies blind spots, change in vision or loss of vision ENT HEENT: Denies bleeding gums, hoarseness or sore throat Cardiovascular Cardiovascular: Denies abdominal pain, bluish discoloration of hand/feet, chest pain with activity, claudication, cold extremities, cyanosis, dyspnea on exertion, erythema on extremities, irregular heart rhythm, leg edema, leg ulcers, numbness in extremities or weakness in extremities Respiratory/Chest Respiratory/Chest: Denies cough, excessive phlegm production, shortness of breath at rest, shortness of breath with exertion or wheezing Gastrointestinal Gastrointestinal: Denies anorexia, change in stool character, constipation, diarrhea, melena or rectal bleeding Genitourinary Genitourinary: Denies dysuria or hematuria Musculoskeletal Musculoskeletal: Denies abnormal gait Integumentary Integumentary: Reports other Details: ; Denies erythema, non-healing lesions or wounds Neurologic Neurologic: Denies abnormal speech, focal weakness, headache(s), loss of vision, numbness, paresthesias or sensory deficit Hematologic/Lymphatic Hematologic/Lymphatic: Denies easy bleeding, easy bruising or lymphadenopathy Vital Signs Vital Signs Vital Signs: Weight Weight: 208 lb Body Mass Index (BMI) 29.8 Physical Exam Const alert, oriented x3, no apparent distress and healthy appearing General Appearance: cooperative; Negative for combative or lethargic Orientation / Consciousness: awake Exam Limitations: no limitations HEENT Head and Scalp: normocephalic and atraumatic Eyes EOMs intact bilaterally General Eye: normal appearance of both eyes Neck full ROM, no lymphadenopathy and thyroid normal General: trachea midline; Negative for lymphadenopathy or tenderness Thyroid: thyroid normal Lymph Lymphatic: Negative for no lymphadenopathy noted Resp normal respiratory effort and no use of accessory muscles Effort and Inspection: Negative for labored, stridor or audible wheezes Cardio regular rate and regular rhythm Back/Spine Cervical Spine: cervical ROM normal Extremity full ROM, normal capillary refill and no clubbing, cyanosis or edema Skin no rashes or lesions noted and no wounds Neuro oriented x3, CN's II-XII intact bilaterally, no focal motor deficits and no sensory deficits noted Psych thought process normal, cooperative, affect normal, speech normal and activity/motor behavior normal Results Lab / Micro Data 01/08/24 08:31 01/08/24 08:31 Labs: Laboratory Results - last 24 hr 01/08/24 08:31: WBC 6.7, RBC 5.27, Hgb 16.2, Hct 47.1, MCV 89.4, MCH 30.7, MCHC 34.4, RDW Std Deviation 42.8, RDW Coeff of Smita 13.0, Plt Count 233, MPV 9.5, Sodium 138, Potassium 3.9, Chloride 107, Carbon Dioxide 28.0, Anion Gap 3 L, BUN 29 H, Creatinine 0.87, Estim Creat Clear Calc 101.53, Est GFR (MDRD) Af Amer 114, Est GFR (MDRD) Non-Af 94, BUN/Creatinine Ratio 33.3 H, Glucose 159 H, Calcium 9.4 Assessment & Plan Assessment/Plan (1) Atherosclerosis of [place] arteries of extremities with intermittent claudication, left leg: PLAN: -angio possible intervention
--- NOTE | 2024-01-08 12:31 | PCM.OPRPT ---
Report of Operation Date of Procedure: 01/08/24 Pre-Operative Diagnosis: atherosclerosis with claudication left lower extremity Post-Operative Diagnosis: same Surgery/Procedure Performed:: aortogram, LLE runoff IVUS TP trunk, sfa/popliteal, common femoral SFA/popliteal atherectomy/DCB tibial thrombectomy Surgeon: Nicholas Laguerre Type of Anesthesia: Local and Sedation,Conscious Estimated Blood Loss (mL): 10 Description of Procedure: HPI: Patient is a 63-year-old male with significant short distance claudication which is limiting and refractory to medical and exercise therapy. He had previous imaging which revealed a short segment distal SFA proximal popliteal occlusion. He is taken now for angiography with possible invention. Description of procedure: Upon obtaining form consent and verification correct patient procedure site patient was positioned prepped and draped in usual sterile fashion. time was performed consultation with versed and fentanyl. skin overlying the right common femoral artery anesthetized with 1% lidocaine the vessel accessed under ultrasound guidance with micropuncture needle wire. this then exchanged out for micropuncture sheath which injection iliofemoral angiogram was performed revealing satisfactory positioning of extravasation or dissection. through the micropuncture sheath bentson wire advanced into the abdominal aorta and the micropuncture sheath exchanged for a short 6 uruguayan sheath. through 6 uruguayan sheath omni flush catheter advanced in the distal aorta and a digital subtraction aortogram pelvic angiogram was performed. The negative contralateral external leg system advancing the Omni Flush catheter to this position for which sequential subtraction angiography left lower extremity is performed. Next the Bentson wire was advanced through the catheter and positioned in the mid superficial femoral artery. The Omni Flush catheter and short sheath was then withdrawn and a 7 [place] Ansell sheath advanced over the wire and the and positioned in the common femoral artery. From this position using a Bentson wire and a quick cross catheter we engaged the total occlusion and initiated crossing within the true lumen. We were unable to fully cross with a Bentson wire this was exchanged out for a command 18 wire with some progress made however we appeared to be within subintimal plane. Multiple efforts to reposition and bleeding gauge were [id number] for which were ultimately crossed with what appeared to be true lumen throughout. Catheter was then advanced into the distal popliteal artery injection subject angiography performed revealing satisfactory position in the true lumen with no extravasation dissection. Through this an 014 wire was advanced and the catheter withdrawn after which a intravascular sound probe was advanced and recorded pullback performed of the TP trunk, popliteal/SFA, common femoral artery. This confirmed position within true lumen for the entirety of the course of the wire as well as gave reference of vessels. Next a Dwyer [place] rotational atherectomy device was advanced in position and engaged across the area of the lesion. After 2 passes this was then withdrawn and the bleeding vessel treated with a procedure cutting the balloon 5 x 120 for multiple inflations length. This was then withdrawn after which the tract angiography confirmed satisfactory lesion response with no extravasation or dissection and no significant major stenosis. A 5 x 150 [employer] [place] drug-coated angioplasty was advanced and positioned in the distal aspect the lesion further nominal for 3 minutes and deflated withdrawn. A 6 x 150 [employer] [place] drug-coated angioplasty and was advanced to the proximal aspect of the lesion inflated nominal for 3 weeks and deflated. The patient was 3 revealed satisfactory lesion response and no extravasation dissection and brisk contrast transit. Also was no significant residual stenosis. Completion angiography to reassess the distal runoff revealed what appeared to be embolic event in the tibial peroneal trunk and into the tibial artery. The posterior tibial artery which had an aberrant takeoff more proximal was not affected and was a dominant runoff to the foot. The command 18 wire was then advanced to the TP trunk and ultimately the peroneal artery. A Dwyer aspiration thrombectomy device was then advanced over the wire and positioned in the mid peroneal artery and the wire was withdrawn. The aspiration catheter was then engaged and then withdrawn across the lesion slowly withdrawn from the sheath. Repeat angiography revealed satisfactory aspiration of the embolic event with no residual stenosis or occlusion. See no further lesions requiring intervention the long 6 [place] sheath exchanged for short 6 [place] sheath after which a minx closure device was deployed followed by 2 intermittent pressure. The patient was taken recovery room prior to discharge to home. Radiographic interpretation: Abdominal aorta normal caliber with no significant atherosclerosis or stenosis. Right common and external iliac artery patent with mild atherosclerosis of the external artery no significant stenosis. The internal artery appears occluded at the origin without reconstitution. Left common and external carotid was patent no atherosclerosis or stenosis. Again the internal iliac artery is occluded at the origin without reconstitution. Left common femoral artery patent with no significant obstruction or stenosis. Left profundofemoral artery occluded at its origin with reconstitution of tertiary branches cardiac collaterals from the SFA. Mid SFA with greater than 50% stenosis followed by a more distal total occlusion for approximately 3 cm with reconstitution via collaterals. Popliteal artery with mild diffuse atherosclerosis but no significant stenosis. Aberrant origin of the posterior tibial artery from the popliteal large caliber vessel with no significant vascular stenosis abdominal operative foot. Tibioperoneal trunk widely patent atherosclerosis or stenosis. Peroneal artery and anterior tibial artery widely patent atherosclerosis or stenosis. Postintervention no residual stenosis and no extravasation or dissection. Preserved tibial runoff.
[2024-01-08 14:34] LABS: ACT Activated Clotting Time 217 sec (74-137)
== END 2024-01-08 16:20 | disposition home or self-care (01) ==
PROVIDERS: PCP Nurse Practitioner Family; Referring Provider Surgery Trauma Surgery; Visit Provider Surgery Trauma Surgery
DX: I70.212 Atherosclerosis of native arteries of extremities with intermittent claudication, left leg (principal); E11.51 Type 2 diabetes mellitus with diabetic peripheral angiopathy without gangrene; I70.92 Chronic total occlusion of artery of the extremities; F17.210 Nicotine dependence, cigarettes, uncomplicated; E78.00 Pure hypercholesterolemia, unspecified; I10 Essential (primary) hypertension; Z79.82 Long term (current) use of aspirin; Z79.899 Other long term (current) drug therapy
CPT/HCPCS: 36200; 36245; 36415; 37184; 37225; 37252; 37253; 75625; 75710; 76937; 80048; 85027; 85347; 99152; 99153; C1724; C1725; C1760; C1769; C1887; C1894; C2623; J7040; Q9967; C1757

== ENCOUNTER → 2024-01-30 | Outpatient (CLI) | payer OTHER, SELFPAY ==
[2024-01-30 13:58] LABS: Anion Gap 5 (5-15); BUN 25 mg/dL (7-18); BUN/Creat Ratio 30.3 RATIO (10-20); Calcium,Total 8.9 mg/dL (8.5-10.1); Chloride 104 mmol/L (98-107); Creatinine, Serum 0.82 mg/dL (0.70-1.30); EST Glomerular Filtration Rate 100 mL/min (>60); Est Glom Filt Rate - Afr Amer 121 mL/min (>60); Glucose 138 mg/dL (74-106); Sodium Level 136 mmol/L (136-145)
== END | disposition home or self-care (01) ==
LOC: LAB 12:36
PROVIDERS: PCP Nurse Practitioner Family; Referring Provider Family Medicine; Visit Provider Family Medicine
DX: I10 Essential (primary) hypertension (principal)
CPT/HCPCS: 36415; 80048

== ENCOUNTER → 2024-03-19 | Outpatient (CLI) | payer OTHER, SELFPAY ==
--- NOTE | 2024-03-19 12:45 | ECHOD_ITS ---
Reason For Study: HTN Procedure This was a 2D Doppler, Color Flow transthoracic echocardiogram. Exam performed in department. Left Ventricle Normal LV size. Mild eccentric left ventricular hypertrophy. Left ventricular systolic function is normal. The estimated ejection fraction is 55 %. Normal diastology for age. Right Ventricle Normal RV size. Normal systolic function. Atria There is mild biatrial dilatation. Mitral Valve The mitral valve is structurally normal. No prolapse or stenosis seen. Trivial mitral valve insufficiency. Tricuspid Valve Normal tricuspid valve. Trivial tricuspid valve insufficiency. Unable to estimate RV systolic pressure due to insufficient tricuspid regurgitant envelope. Aortic Valve Trisinus/trileaflet aortic valve. Mild focal aortic valve thickening. Pulmonic Valve Normal pulmonic valve. Mild (1+) pulmonic valve insufficiency. Great Vessels Normal aortic root. Pericardium/Pleural No pericardial effusion. MMode/2D Measurements & Calculations LVIDd: 5.5 cm IVSd: 0.98 cm Ao root diam: 3.4 cm LVIDs: 4.2 cm LVPWd: 1.2 cm LA dimension: 4.0 cm RVDd: 4.7 cm FS: 23.5 % LAV(MOD-bp): 72.5 ml LVAd ap4: 44.8 cm2 SV(MOD-sp4): 91.5 ml LAV(MOD-bp) Indexed: 34.4 ml/m2 LVLd ap4: 9.8 cm LAV(MOD-sp2): 71.7 ml EDV(MOD-sp4): 168.2 ml LAV(MOD-sp4): 63.9 ml EDV(sp4-el): 173.1 ml LVAs ap4: 27.1 cm2 LVLs ap4: 8.2 cm ESV(MOD-sp4): 76.8 ml ESV(sp4-el): 75.7 ml EF(MOD-sp4): 54.4 % EF(sp4-el): 56.3 % SV(sp4-el): 97.4 ml LA A4 area: 22.1 cm2 RA A4 area: 22.9 cm2 TAPSE: 3.0 cm Time Measurements MV dec time: 0.28 sec Doppler Measurements & Calculations MV E max ari: 59.4 cm/sec Lat Peak E' Ari: 14.2 cm/sec Med Peak E' Ari: 7.7 cm/sec MV A max ari: 76.9 cm/sec E/E' lat: 4.2 E/E' med: 7.7 MV E/A: 0.77 MV V2 max: 83.1 cm/sec MV P1/2t max ari: 84.7 cm/sec Ao V2 max: 148.0 cm/sec MV max P.8 mmHg MV P1/2t: 108.4 msec Ao max P.8 mmHg MV V2 mean: 41.2 cm/sec MV dec slope: 228.7 cm/sec2 Ao V2 mean: 99.3 cm/sec MV mean P.82 mmHg Ao mean P.5 mmHg MV V2 VTI: 36.7 cm MVA(P1/2t): 2.0 cm2 Ao V2 VTI: 34.2 cm AV (velocity ratio): 0.79 LV V1 max: 121.9 cm/sec PA V2 max: 104.0 cm/sec LV V1 max P.9 mmHg PA V2 mean: 73.7 cm/sec LV V1 mean P.0 mmHg LV V1 mean: 81.7 cm/sec LV V1 VTI: 26.9 cm ECHO/Echo Complete Interpretation Summary The estimated ejection fraction is 55 %. Mild eccentric left ventricular hypertrophy. There is mild biatrial dilatation. Ordering Physician: Dotty Kerr Referring Physician: Dotty Kerr Performed By: Jim Tello RCS
== END | disposition home or self-care (01) ==
LOC: CVS 12:44
PROVIDERS: PCP Nurse Practitioner Family; Referring Provider Physician Assistant; Visit Provider Physician Assistant
DX: I10 Essential (primary) hypertension (principal); I74.9 Embolism and thrombosis of unspecified artery; F17.200 Nicotine dependence, unspecified, uncomplicated; I70.212 Atherosclerosis of native arteries of extremities with intermittent claudication, left leg
CPT/HCPCS: 93306

== ENCOUNTER → 2024-04-28 | Outpatient (CLI) | payer OTHER, SELFPAY ==
[2024-04-28 11:43] LABS: Magnesium 2.5 mg/dL (1.6-2.6); Thyroid Stim Hormone (TSH) 0.64 uIU/mL (0.358-3.74)
== END | disposition home or self-care (01) ==
LOC: LAB 10:58
PROVIDERS: PCP Nurse Practitioner Family; Referring Provider Internal Medicine Cardiovascular Disease; Visit Provider Internal Medicine Cardiovascular Disease
DX: I49.3 Ventricular premature depolarization (principal); R00.2 Palpitations
CPT/HCPCS: 36415; 83735; 84443

== ENCOUNTER → 2024-05-05 | Outpatient (CLI) | payer OTHER, SELFPAY ==
--- NOTE | 2024-05-05 09:54 | ADUL_ITS ---
Reason For Study: s/p Left Popliteal Intervention Left Velocities Ext Iliac Artery, dist = 121.1 cm./sec. Common Femoral Artery, mid = 132.2 cm./sec. Supf. Femoral Artery, prox = 103.9 cm./sec. Supf. Femoral Artery, mid = 116.7 cm./sec. Supf. Femoral Artery, dist = 100.3 cm./sec. Profunda Femoral Artery = 59.2 cm./sec. Popliteal Artery, mid = 102.1 cm./sec. Post. Tibial Artery, prox = 94.8 cm./sec. Post Tibial Artery, mid = 114.9 cm./sec. Post Tibial Artery, dist. = 105.8 cm./sec. Peroneal Artery, prox = 30.7 cm./sec. Peroneal Artery, mid = 62.3 cm./sec. Peroneal Artery,dist. = 59.4 cm./sec. Ant.Tibial Artery, prox = 45.3 cm./sec. Ant Tibial Artery, mid = 32.0 cm./sec. Ant. Tibial Artery, distal = 32.0 cm./sec. Procedure Exam performed in department. VL/US Art Duplex Unilat Lower Ext Interpretation Summary Left lower extremity arteries patent with normal velocities throughout and no f ocal stenosis identified. Ordering Physician: Dotty Kerr Referring Physician: Dotty Kerr Performed By: Cherry Avalos RVT and Student
--- NOTE | 2024-05-05 09:54 | ART_ITS ---
Reason For Study: S/P Left Popliteal Intervention Procedure A bilateral lower extremity continuous wave Doppler with analog waveform analysis and ankle brachial indexes. Left Segmental Pressures Left brachial= 150mmHg. Left posterior tibial artery = 139mmHg. Left dorsalis pedis artery = 125mmHg. Left digit = 74 mmHg. The left dorsalis pedis waveforms are biphasic. The left posterior tibial artery waveforms are biphasic. Right Segmental Pressures Right brachial= 147mmHg. Right posterior tibial artery = 152mmHg. Right dorsalis pedis artery = 157mmHg. Right digit = 101 mmHg. The right dorsalis pedis waveforms are triphasic. The right posterior tibial artery waveforms are triphasic. Indices The right ankle brachial index by the dorsalis pedis is 1.05. The right ankle brachial index by the posterior tibial artery is 1.01. The right digital-brachial index is 0.67. The left ankle brachial index by the dorsalis pedis is 0.83. The left ankle brachial index by the posterior tibial artery is 0.93. The left digital-brachial index is 0.49. VL/Ankle Brachial Index Interpretation Summary Right ONEYDA 1.05, normal. Doppler/PVR waveforms of the right ankle normal at rest . Left ONEYDA 0.93, mild arterial insufficiency. Doppler/PVR waveforms of the left a nkle mildly diminished at rest. Ordering Physician: Dotty Kerr Referring Physician: Natalia Magana NP Performed By: Cherry Avalos RVT and Student
[2024-05-05 11:43] LABS: Hemoglobin A1c 6.6 % (3.8-5.6)
[2024-05-05 11:45] LABS: Microalbumin,Random Urine 5.9 mg/L (NO RANGE EST.); Microalbumin:Creatinine Ratio 7.7 mg/g CRE (<30 mg/g CRE)
== END | disposition home or self-care (01) ==
PROVIDERS: PCP Nurse Practitioner Family; Referring Provider Physician Assistant; Visit Provider Physician Assistant
DX: Z48.812 Encounter for surgical aftercare following surgery on the circulatory system (principal); E11.9 Type 2 diabetes mellitus without complications; I70.212 Atherosclerosis of native arteries of extremities with intermittent claudication, left leg
CPT/HCPCS: 36415; 82043; 82570; 83036; 93922; 93926

== ENCOUNTER → 2024-05-19 | Outpatient (CLI) | payer OTHER, SELFPAY ==
--- NOTE | 2024-05-19 12:46 | CT_ITS ---
STUDY: CT CHEST WITHOUT CONTRAST REASON FOR EXAM: Male, 64 years old. CHEST PAIN RADIATION DOSAGE (If Supplied By Facility): CTDIvol = ( 28.62 ) mGy, DLP = ( 1567.16 ) mGycm TECHNIQUE: Transaxial imaging was performed without the administration of intravenous contrast material. Cardiac over read examination. Individualized dose optimization techniques were used for this CT. COMPARISON: Comparison is made with prior study dated July 02, 2023. FINDINGS: CHEST Stable calcified granuloma in the right lower lobe. There is no demonstrated pleural abnormality. There are calcifications of the coronary arteries. Normal mediastinum. Normal hilar regions. Normal unenhanced pulmonary arteries. There is atherosclerotic calcification of the aortic arch. There are degenerative changes of the thoracic spine. There is no demonstrated abnormality of the visualized upper abdomen. CT/Limited Chest CT Cardiac Only IMPRESSION: Coronary artery calcification. Electronically Signed: Chidi Restrepo MD at 8:32 EDT ,
[2024-05-19 12:59] VITALS: BP 136/61; PULSE 55; RESP 18; O2SAT 96; BMI 30.1
[2024-05-19] MEDS: 0.9% Saline Lock 10 ML Syringe IV (13:08)
[2024-05-19 13:24] LABS: CREATININE FINGERSTICK 1.2 mg/dL (0.70-1.30); EGFR FINGERSTICK > 60.0000 mL/min (>60)
[2024-05-19 13:31] VITALS: BP 129/60; PULSE 51
[2024-05-19] MEDS: Nitroglycerin SL (ED/IMG/CATH) 0.4 MG TABLET SL (13:31)
[2024-05-19 13:32] VITALS: BP 129/60; PULSE 57; RESP 18
--- NOTE | 2024-05-20 07:40 | CCTA.WCONT ---
CCTA w/Cont Coronary Arteries Date of Study:: 05/19/24 Chest pain Coronary Calcium Scoring: High-resolution Computed Tomographic imaging of the chest was performed on [05/19/2024], with particular attention paid to the coronary arteries. Intravenous contrast agent was administered per protocol and images reconstructed and displayed. LEFT MAIN CORONARY ARTERY: Arises from the left coronary cusp with no significant stenosis and bifurcates to left anterior descending artery and left circumflex artery. Calcium score is 122 [] LEFT ANTERIOR DESCENDING CORONARY ARTERY: Medium size vessel with mild proximal calcification and moderate soft plaque noted in the midsegment for approximately 50% and continuing towards the apex with mild irregularities. Calcium score is 23 [] LEFT CIRCUMFLEX CORONARY ARTERY: Focal eccentric calcified plaque noted in the proximal region followed by an area with the first obtuse marginal branch with effective 50% stenosis. Calcium score is 43 [] RIGHT CORONARY ARTERY: Dominant vessel arising from the right coronary cusp with proximal 50% stenosis the vessel continued with no significant stenosis present. Calcium score is 54.4 [] THORACIC AORTA: Mild calcification noted [] PULMONARY ARTERY: Normal size [] LEFT ATRIUM/APPENDAGE: Not visualized [] MITRAL VALVE: Not visually [] AORTIC VALVE: Trileaflet [] LEFT VENTRICLE: Normal size [] CORONARY CALCIUM SCORE: Coronary calcium score of 243 with a percentile ranking between 50 and 75th percentile Conclusion: Moderate atherosclerotic cardiovascular disease with moderate mixed hard and soft plaque noted in the left anterior descending artery and the circumflex artery. []
== END | disposition home or self-care (01) ==
LOC: CT 12:43
PROVIDERS: PCP Nurse Practitioner Family; Referring Provider Internal Medicine Cardiovascular Disease; Visit Provider Internal Medicine Cardiovascular Disease
DX: R07.9 Chest pain, unspecified (principal); E11.9 Type 2 diabetes mellitus without complications; I10 Essential (primary) hypertension; F17.200 Nicotine dependence, unspecified, uncomplicated; I73.9 Peripheral vascular disease, unspecified; I51.7 Cardiomegaly; I70.212 Atherosclerosis of native arteries of extremities with intermittent claudication, left leg
CPT/HCPCS: 75571; 75574; 76380; Q9967

== ENCOUNTER 2024-06-23 10:09 | Observation (INO) | payer OTHER, SELFPAY ==
--- NOTE | 2024-06-16 12:11 | RAD_ITS ---
HISTORY: [facility] -- for heart cath. TECHNIQUE: XR Chest 2 Views. COMPARISON: None. FINDINGS: CARDIOMEDIASTINAL BORDERS: Cardiac silhouette within normal limits in size. Mediastinal contour unremarkable. LUNGS: Radiographically clear. PLEURA: No pleural effusion or pneumothorax seen. OSSEOUS STRUCTURES: Mild degenerative changes of the thoracic spine. RAD/Chest PA and Lateral IMPRESSION: No acute cardiopulmonary process identified. Electronically Signed: Marija Ford MD at 9:08 EDT ,
[2024-06-16 13:18] LABS: Absolute Lymphocyte Count 1.84 X10^3/uL (0.83-4.51); Basophil# 0.06 X10^3/uL; Basophil% 0.9 % (0-1); Eosinophil# 0.16 X10^3/uL; Eosinophils% 2.3 % (0-5); Hematocrit 44.3 % (40-54); Lymphocyte # 1.84 X10^3/ul (0.83-4.51); Lymphocyte % 26.4 % (19-41); Mean Corp Hgb Conc 33.9 g/dL (32-36); Mean Corpuscular Hgb 30.4 pg (27.0-32.0); Mean Corpuscular Volume 89.7 fL (80-94); Mean Platelet Vol. 9.9 fl (6.2-12.0); Monocyte# 0.91 X10^3/uL; Monocyte% 13.1 % (0-10); NRBC Flagged by Analyzer 0 % (0-5); Neutrophil # 3.97 X10^3/uL (2.7-7.7); Platelet Count 253 K/mm3 (150-450); RBC Distribution Width CV 13.2 % (11.6-14.6); RBC Distribution Width SD 43.3 fl (35.1-43.9); Red Blood Count 4.94 M/mm3 (4.6-6.2)
[2024-06-16 13:30] LABS: International Normalized Ratio 0.9; Prothrombin Time (Protime)PT. 12.2 SECONDS (11.7-14.9)
[2024-06-16 13:31] LABS: Partial Thromboplast Time 30.9 Seconds (24.1-36.2)
[2024-06-16 13:34] LABS: Anion Gap 5 (5-15); BUN 29 mg/dL (7-18); BUN/Creat Ratio 31.5 RATIO (10-20); Calcium,Total 9.3 mg/dL (8.5-10.1); Chloride 106 mmol/L (98-107); Creatinine, Serum 0.92 mg/dL (0.70-1.30); EST Glomerular Filtration Rate 88 mL/min (>60); Est Glom Filt Rate - Afr Amer 107 mL/min (>60); Glucose 145 mg/dL (74-106); Potassium 4.1 mmol/L (3.5-5.1); Sodium Level 138 mmol/L (136-145)
--- NOTE | 2024-06-18 11:58 | PCM.HP.BLA ---
History and Physical Date of Admission: 06/23/24 This gentleman has history of nicotine dependence, peripheral arterial disease, hypertension and dyslipidemia. He has been referred to us for establishing cardiac care. Patient denies any previous history of heart disease. According to him, he gets anterior chest tightness about couple of times a week. According to him, it is not precipitated by exertion. He cannot identify any precipitating or relieving factors. Per him, it feels as a weight across the chest. Per him, it could last up to an hour at a time. No associated diaphoresis. No shortness of breath. Patient also complains of shortness of breath with moderate to strenuous exertion. He blames it on his smoking. No orthopnea. No PND. No ankle edema. Denies any lightheadedness or dizziness. No syncope or presyncope. Per patient, his claudication symptoms have resolved since his peripheral intervention done by vascular surgery. Recent event monitoring showed about 20% burden of PVCs with ventricular couplets and triplets. Echocardiogram showed normal left ventricular systolic function. Mild LVH with biatrial dilatation was noted. Intake Vital Signs: See EMR Intake Visit Reasons: [facility] Blindstitch Lapel Padder Required: No Accompanied by: Is patient in pain?: No Allergies No Known Allergies Allergy (Verified 04/28/24 10:02) Medications: See EMR Ejection fraction %: 55 PFSH Medical History Claudication of both lower extremities Severe peripheral arterial disease Claudication of left lower extremity Encounter for screening colonoscopy Lipoma Atherosclerosis of [place] arteries of extremities with intermittent claudication, left leg Aftercare following surgery of the circulatory system PVC's (premature ventricular contractions) Biatrial enlargement Wears glasses No natural teeth High cholesterol History of pain when walking History of colon polyps Heartburn Smoker Dyspnea on exertion Bilateral calf pain Diabetes mellitus Hypertension Surgical History History of colonoscopy Family History Mother Diabetes Heart disease Hypertension CVA (cerebral vascular accident) CAD (coronary artery disease) CABG at 72 Myocardial infarction Social History (Updated 04/28/24 @ 10:05 by Carline Valerio) Smoking Status: Current every day smoker tobacco type: cigarettes Tobacco: How many years used: 48 alcohol intake: current alcohol intake frequency: a few times a week substance use type: does not use caffeine: Yes Type: coffee Number of servings: 4 ROS Const Const: Positive for difficulty sleeping; Negative for fatigue, weakness, headache(s), frequent falls or excessive sweating Eyes Eyes: Negative for loss of peripheral vision, transient loss of vision, blurry vision, double vision or tunnel vision ENT ENT: Negative for headache(s), dizziness, Nosebleed/epistaxis or balance problems Cardio Chest Pain: Yes Frequency: weekly (couple times) Character: other (weight on chest) Onset: other (Stress) Location: mid sternal Duration: hours Palpitations: No Edema: None Muscle aches with walking: None Resp Respiratory: Positive for SOB with activity; Negative for SOB at rest, SOB orthopnea\SOB lying down, Cough or paroxysmal nocturnal dyspnea GI GI: Negative nausea, vomiting, heartburn or black,tarry stools : Negative for hematuria Musc Musc: Negative for muscle aches/ myalgia, muscle weakness, joint pain or balance problems Skin Skin: Negative non-healing lesions, rash or unusual bruising Neuro Neuro: Positive for lightheadedness (if looks up and just looks down to get to go away) and near syncope; Negative for dizziness, syncope, frequent falls, headache(s), weakness, blurry vision, double vision or lack of coordination Andrew Hematologic/Lymphatic: Negative for easy bleeding or easy bruising Endo Endo: Negative for fatigue, excessive sweating or increased thirst/drinking Psych Psych: Negative for anxiety or depression Allergy Allergy/Immunology: Negative for hives and Negative for rash Cardiology Exam Const Appearance: comfortable and no acute distress Nutritional Appearance: well nourished Neck Neck: no JVD Carotids: Negative bruit Chest Auscultation: Bilateral: Clear to Auscultation Cardio Rate: regular rate Rhythm: regular rhythm Heart sounds: S1 normal and S2 normal Neuro General: patient alert, patient awake and patient oriented x3 Extremities Lower Extremity Edema: None: Bilateral Supplemental Info Supplemental Information ECHOCARDIOGRAM 03/19/24: Interpretation Summary The estimated ejection fraction is 55 %. Mild eccentric left ventricular hypertrophy. There is mild biatrial dilatation. STRESS TEST 02/08/22: INTERPRETATION: Resting Images: There is unremarkable redistribution of radiopharmaceutical. There is no evidence of stressed induced ischemia. Stress images: There is no evidence of stress-induced ischemia. Ejection fraction is 43%. Gated SPECT/wall motion: There is no evidence abnormal wall motion. CONCLUSION: 1. There is no evidence of stress-induced ischemia. Ejection fraction is 43%. 14 DAY EVENT MONITOR 02/20/24-03/04/24: AVG HR was 74 bpm MIN HR was 43 bpm on 02/22 at 0508 MAX HR was 119 bpm on 02/21 at 1903 No atrial fibrillation noted. 29 stable events noted - Sinus rhythm w/Run of V-Tach (3-3 beats)/PVCs (12 in 1 min)/ Couplet PVCs/PACs - Sinus rhythm w/PVCs (4 in 1 min) - Sinus tachycardia, Sinus rhythm w/Run of V-Tach (3 beats)/Bigeminal PVCs/MF PVCs (33 in 1 min)/IVCD - Sinus rhythm w/IVCD/Trigeminal PVCs/MF PVCs (30 in 1 min) - Sinus rhythm w/Bigeminal PVCs/MF PVCs (30 in 1 min)/Couplet PVCs - Sinus rhythm w/Run of V-Tach (4 beats)/Couplet PVCs/Bigeminal PVCs/MF PVCs (17 in 1 min) - Accelerated junctional rhythm, sinus rhythm w/MF PVCs (8 in 1 min)/Morphology Change/PACs - Sinus arrhythmia w/MF PVCs (8 in 1 min)/IVCD - Sinus tachycardia, sinus rhythm w/IVCD/Trigeminal PVCs/MF PVCs (28 in 1 min) - Sinus rhythm w/Couplet PVCs/Trigeminal PVCs/MF PVCs (30 in 1 min) - Junctional rhythm, sinus rhythm w/Run of V-Tach (5 beats)/IVCD/Couplet PVCs/MF PVCS (26 in 1 min)/Trigeminal PVCs - Sinus rhythm w/IVCD/Trigeminal PVCs/Interpolated PVC/MF PVCs (18 in 1 min)/Atrial run/PACs - Sinus rhythm w/IVCD/Couplet PVCs/Bigeminal PVCs/PVCs (32 in 1 min)/PACs - Sinus rhythm w/IVCD/Couplet PVCs/MF PVCs (26 in 1 min)/Trigeminal PVCs - Sinus rhythm w/Run of V-Tach (4 beats)/MF PVCs (13 in 1 min)/Couplet Pacs/Atrial Escape Beat - Sinus rhythm, Junctional tachycardia w/IVCD/PVCs (1 in 1 min)/PACs - Sinus rhythm, Sinus tachycardia w/MF PVCs (26 in 1 min)/Couplet PVCs/Trigeminal PVCs - Sinus rhythm w/Run of V-Tach (3 beats)/IVCD/Bigeminal PVCs/MF PVCs (23 in 1 min) - Sinus rhythm w/PACs - Sinus rhythm w/Trigeminal PVCs/MF PVCs (25 in 1 min)/PACs - Sinus rhythm w/Couplet PVCs/Trigeminal PVCs/PVCs (28 in 1 min) - Sinus rhythm w/PVCs (22 in 1 min)/Run of V-Tach (3 beats)/Bigeminal PVCs - Sinus rhythm w/Bigeminal PVCs/PVCs (18 in 1 min) - Sinus rhythm w/Run of V-Tach (3 beats)/Bigeminal PVCs/PVCs (42 in 1 min)/Couplet PVCs - Sinus tachycardia, Sinus rhythm w/MF PVCs (30 in 1 min)/Run of V-Tach (3 beats)/Bigeminal PVCs/Couplet PVCs/Trigeminal PVCs - Sinus rhythm w/Run of V-Tach (4-4 beats)/MF PVCs (26 in 1 min) - Sinus rhythm w/MF PVCs (24 in 1 min)/IVCD/Run of V-Tach (3-8 beats)/Couplet PVCs - Sinus rhythm w/Run of V-Tach (3 beats)/Couplet PVCs/MF PVCs (27 in 1 min) - Sinus rhythm w/Bigeminal PVCs/Couplet PVCs/MF PVCs (31 in 1 min) CT LUNG 07/02/23: FINDINGS: LUNGS AND PLEURAL SPACES: History millimeter right lower lobe pulmonary nodule noted on image 151 of sequence 2 likely representing granuloma. Lungs are otherwise clear. No pleural effusion or thickening. No pneumothorax. HEART: Heart is normal size. Mild to moderate coronary artery calcification. No pericardial effusion. MEDIASTINUM: Normal. Esophagus is unremarkable. No hiatal hernia. No mediastinal or hilar lymphadenopathy. THYROID: Normal. No thyroid nodules or calcification. BONES/JOINTS: No suspicious lytic or blastic abnormality. VASCULATURE: No aortic aneurysm. LYMPH NODES: Normal. No enlarged lymph nodes. IMPRESSION: 3 mm right lower lobe pulmonary nodule. Lung-RADS score: 2 - Benign Appearance or Behavior. Recommend continued annual screening with a low-dose CT (LDCT) in 12 months. Assessment and Plan Assessment and Plan (1) Chest pain: Status: Chronic Plan: Patient has atherosclerotic vascular disease. He proceeded with coronary angiography CT scan on 05/20/2024. It showed moderate atherosclerotic disease with moderate mixed hard and soft plaque noted in the LAD and LCx. On account of such results, he will proceed with heart catheterization to better assess coronary artery atherosclerosis. Depending on results, further recommendation be made. Continue aspirin. Risk factor modification. (2) Hypertensive heart disease: Status: Chronic Plan: Mild LVH and mild biatrial dilatation noted on echocardiogram. For optimal blood pressure control. (3) Resistant hypertension: Status: Chronic Plan: Blood pressure above goal. He was started on nifedipine extended release 90 mg daily. Continue losartan, hydrochlorothiazide. (4) PVC's (premature ventricular contractions): Status: Chronic Plan: Normal LV systolic function. Patient asymptomatic. 20% burden of PVCs including triplets noted on event monitoring. Start on low-dose beta-blockers. Monitor heart rate. (5) Peripheral arterial disease: Status: Chronic Plan: Status post percutaneous intervention to the left lower extremity. Continue to follow as per vascular surgery. (6) Dyslipidemia: Status: Chronic Plan: Atorvastatin. (7) Nicotine dependence: Status: Chronic Plan: Counseled to quit.
[2024-06-23] VITALS (11 sets, daily range): BP systolic 111–140; BP diastolic 46–90; PULSE 47–59; RESP 12–19; TEMP 36.4–36.8; O2SAT 90–99; BMI 31.2; BMI 30.9
[2024-06-23 10:14] LABS: ACT Activated Clotting Time 281 sec (74-137)
--- NOTE | 2024-06-23 10:15 | EKG12_ITS ---
Test Reason : PCI Blood Pressure : / mmHG Vent. Rate : 052 BPM Atrial Rate : 052 BPM P-R Int : 186 ms QRS Dur : 108 ms QT Int : 458 ms P-R-T Axes : 048 031 022 degrees QTc Int : 425 ms Sinus bradycardia with occasional Premature ventricular complexes Inferior infarct , age undetermined Cannot rule out Anterior infarct , age undetermined Abnormal ECG No previous ECGs available Confirmed by YAJAIRA HERNANDEZ MD ([id number]), editor managing newspaper DIANA JOSEPH ([id number]) on 06/24/2024 9:44:27 AM Referred By: Karen Lujan Confirmed By:YAJAIRA HERNANDEZ MD
--- NOTE | 2024-06-23 10:17 | DCINST_ITS ---
Discharge Instructions Diet Discharge Diet: Low fat / Low cholesterol Activity Discharge Activity: Return to Normal Activity Dressing / Incision Call your doctor if your incision/area has: Continuous Slow Oozing, Sudden Increased Bleeding, Increased Pain/ Swelling, Increased Redness, Foul Smelling Discharge and Swelling at the incision site Call your doctor if you observe: Fever of 101 or Higher and Coldness, Increased Pain Follow Up Care Please Follow Up With: Karen Lujan MD When: 2-4 weeks Test Results: Test results from this visit will be discussed in further detail at your follow- up appointment, if applicable. Discharge Plan Admission Attending Provider: Karen Lujan Primary Care Provider: Natalia Henry NP Instructions Print Language: Kyr[place]z Discharge Orders/Prescriptions Prescriptions: Continued hydrochlorothiazide 50 mg tablet 50 mg PO QAM atorvastatin 20 mg tablet 20 mg PO QDAY metoprolol succinate 25 mg tablet extended release 24 hr 25 mg PO DAILY Qty: 90 3RF nifedipine 90 mg tablet extended release 24hr 90 mg PO DAILY Qty: 90 3RF losartan 100 mg tablet 100 mg PO DAILY aspirin [Adult Aspirin Regimen] 81 mg tablet,delayed release (DR/EC) 81 mg PO DAILY Qty: 30 11RF clopidogrel [Plavix] 75 mg tablet 75 mg PO .daily Qty: 90 2RF Discontinued cilostazol 50 mg tablet 50 mg PO BID Qty: 60 11RF Referrals / Follow Up: Natalia Henry GRAIN MERCHANDISER, GRAIN MERCHANDISER-C [Primary Care Provider] - Disposition Disposition (needs filled in before D/C Order can be placed): Home, Self Care
--- NOTE | 2024-06-23 10:31 | CL.I_ITS ---
Patient Name: KEATON HARLEY Study Date: 06/23/2024 Performing: Karen Lujan MD Ht: 70 inches 177.8 cm : 1960 Wt: 218.3 lbs 98.88 kg Age: 64 Gender: male BSA: 2.17 PROCEDURE(S) PERFORMED DC02-(49495)LHC/COR IC12-(32133/C9600)NATE W/WO PTCA, SINGLE CORONARY ARTERY CLINICAL PROFILE AND CO-MORBIDITIES Indications: Stable Known CAD Heart Failure: None CAD Presentations: Stable angina. CONCLUSIONS 70% Prox OM1 Severe diffuse disease prox to distal RCA, distal RCA PRINCIPAL DATA ARCHITECT; RPLV and RPDA filling retrogradely via collaterals from the left system Successful NATE prox OM1 using Jaxson [place] 3.0x12 mm RECOMMENDATIONS ASA Indefinitley Plavix for at least 12 months Refer to tertiary center for evaluation for PRINCIPAL DATA ARCHITECT RCA intervention DESCRIPTION OF PROCEDURE The patient arrived to the procedure lab. The risks and benefits of the procedure as well as a full description of our services here and lack of surgical backup were fully explained to the patient and/or their significant other prior to the catheterization. The Timeout was completed, verifying the correct patient and procedure. The patient's procedural site was prepped and draped in the usual fashion. Local anesthetic was given subcutaneously to right radial region with Lidocaine 2%. Using a modified Seldinger technique, arterial access was obtained via the right radial artery, a 6Fr sheath was inserted.. Left Coronary Artery selective angiography was performed in multiple views using a 5 Fr. 4.0 [place] catheter. Right Coronary Artery selective angiography was then performed in multiple views using a 5 Fr. 3DRC (Keith) catheter. Right Coronary Artery selective angiography was then performed in multiple views using a 5 Fr. AL 1 catheterThe images were reviewed and options discussed. A decision was then made to proceed with an Intervention, IVUS or other adjunct procedure. XB 3.0 Guide catheter was inserted and engaged into the LCA. Runthrough Guide wire was advanced to the Circumflex. Jaxson [place] 3.0 x 12 Drug Eluting stent was inserted. Drug Eluting stent was advanced across the lesion in the first obtuse marginal, proximal. Angiogram performed pre stent deployment. NC Emerge 3.0 x 12 Balloon catheter was inserted. Balloon catheter was advanced across lesion in the first obtuse marginal, proximal. The arterial sheath was pulled and a TR Band was applied for hemostasis CORONARY ANGIOGRAPHY DOMINANCE: Right Dominant LEFT MAIN: No significant disease noted LEFT ANTERIOR DESCENDING ARTERY: LAD: Tubular 40% Mid lesion in LAD OM 1: Tubular 80% Proximal lesion in MARG1 OM 2: Tubular 80% Proximal lesion in MARG1 RIGHT CORONARY ARTERY: RCA: Diffuse 90% Proximal lesion in RCA Diffuse 100% Distal lesion in RCA COLLATERAL FLOW: Collateral flow from CX to RT LV-BR INTERVENTION INFORMATION LESION SITE: 1st OM (Proximal) Lesion Complexity: Non-High/Non-C, lesion length: 10 mm Pre Stenosis: 80 % Pre intervention TANISHA flow: 3 PROCEDURE: Drug Eluting Stent with post dilatation Post Stenosis: 0 % Post intervention TANISHA flow: 3 Lesion Devices: Terumo .014 180cm Runthrough Extra Floppy straight Cordis 6 Fr XB3.0 100cm Guide Catheter Medtronic 3.0 x 12 JAXSON FRONTIER NATE Bobby Sci NC EMERGE MR 3.00x12 BALLOON COMPLICATIONS No Complications PROCEDURE MEDICATIONS Fentanyl 50 mcg IV Versed 1 mg IV Oxygen: 2 L/min via nasal cannula Heparin given IA 06/23/2024 09:17:46 Heparin 8000 unit(s) IV 06/23/2024 09:47:42 Nitro 200 mcg IC 06/23/2024 09:55:45 Plavix 300 mg PO 06/23/2024 10:15:49 Verapamil 2.5mg, Ntg 200mcgs, 2000 units of Heparin given IA 06/23/2024 09:17:46 SUMMARY OF HEMODYNAMIC DATA Time AIR REST ECG 07:57:19 AO 109/45 (72) SA 09:24:25 Signed By Karen Lujan MD On 06/23/2024 10:31:11 Karen Lujan MD
--- NOTE | 2024-06-23 10:40 | CRPHASE1_ITS ---
Patient Communication Patient Information PHII Cardiac Rehab Discussed with Patient:: Yes Guide to Cardiac Rehab Given to Patient:: Yes Cardiac Rehab Facility Choice List Given to Patient:: Yes Communication to Cardiac Rehab Choice Program [facility] CR PHII:: Communication Given to CR Contact Center Manager:: Karen Lujan Phase II Cardiac Rehab:: Yes Sessions:: 36 sessions - 3 days/wk, 12 weeks Cardiac Rehabilitation Info Program Information Cardiac Rehabilitation Program Information: Cardiac Rehab The cardiac rehab team at [facility] consists of highly skilled exercise physiologists, nurses, respiratory therapists and physicians working together with you. Our purpose is to help you have a full recovery and achieve the goals you set for yourself. Over the years many of our patients have returned to activities they assumed they would never do again! We can help restore your confidence and motivation to make lifestyle changes that can have a significant impact on your health and quality of life! We can help answer questions and concerns you may have about exercise, lifestyle, medications, diet, stress and anxiety which are common following a hospitalization. WE monitor ECG and vital signs during exercise and discuss your progress with you and report to your physician(s). Cardiac Rehab is proven to help reduce readmissions, improve functional capacity and lower recurrence of problems with your heart. Our Cardiac Rehab program is Certified by the [place] [employer]Vascular [employer] Pulmonary [employer] (AACVPR) and Accredited by the [place] [employer] through our [facility]. You can contact us at . We invite you to call us with your questions or to get started in our program. If you have other questions or concerns be sure to ask your physician/provider during your follow-up visit. WE look forward to seeing you!
--- NOTE | 2024-06-23 10:41 | CRPH1.INST_ITS ---
General Education Discussed with Patient CAD and cardiac anatomy and function:: Patient communicates acknowledgment Explanation of diagnoses and procedures:: Patient communicates acknowledgment Sign/Symptoms of VA:: Patient communicates acknowledgment Antiplatelet therapy: Patient communicates acknowledgment Proper use of NTG-SL: Patient communicates acknowledgment Emergency procedures and activation of EMS: Patient communicates acknowledgment Compliance of all prescribed medications: Patient communicates acknowledgment Smoking Risk Factors Patient Nicotine/Smoking Risk Factors Are:: Cigarettes Recommendations Recommendations Include:: Smoking cessation strategies/Smoking packet, Second- hand smoke recommendation and Participation in a smoking cessation program Response Code Nicotine/Smoking Response Code:: Patient communicates acknowledgment Dyslipidemia Risk Factors Patient Dyslipidemia Risk Factors Are:: Total Cholesterol, Triglycerides, HDL and LDL Recommendations Recommendations Include:: Lipid profile provided Response Code Dyslipidemia Response Code:: Patient communicates acknowledgment Overweight/Obesity Risk Factors Patient Overweight/Obesity Risk Factors Are:: Obesity - > or = 30 Recommendations Recommendations Include:: Weight loss of 5-10% Response Code Overweight/Obesity:: Patient communicates acknowledgment Hypertension Recommendations Recommendations Include:: Maintain BP <130/85 and Decrease/maintain normal body weight Response Code Hypertension:: Patient communicates acknowledgment Diabetes Risk Factors Patient Diabetes Risk Factors Are:: No documented hx of diabetes Recommendations Recommendations Include:: Maintain fasting blood sugars 70-110 md/dL Response Code Diabetes:: Patient communicates acknowledgment Sedentary Risk Factors Patient Sedentary Risk Factors Are:: Lack of regular exercise Recommendations Recommendations Include:: Aerobic exercise 5-7 times/week for 20-30 minutes continuously, Benefits of regular exercise, Discussed home walking program and Monitored Outpatient Cardiac Rehab Response Code Sedentary Response Code:: Patient communicates acknowledgment
[2024-06-23] MEDS: 0.9% Normal Saline (1000mL) 1,000 ML 100 ML IV (11:00)
[2024-06-23] MEDS: 0.9% Saline Lock 10 ML Syringe IV (13:45)
[2024-06-24 03:02] VITALS: BMI 31.0
[2024-06-24 03:30] VITALS: BP 135/70; PULSE 50; RESP 16; TEMP 36.6; O2SAT 97
[2024-06-24 06:06] LABS: Hematocrit 42.5 % (40-54); Hemoglobin 14.5 g/dL (13.0-16.5); Mean Corp Hgb Conc 34.1 g/dL (32-36); Mean Corpuscular Hgb 30.3 pg (27.0-32.0); Mean Corpuscular Volume 88.7 fL (80-94); Mean Platelet Vol. 9.4 fl (6.2-12.0); Platelet Count 199 K/mm3 (150-450); RBC Distribution Width CV 13.1 % (11.6-14.6); RBC Distribution Width SD 42.6 fl (35.1-43.9); Red Blood Count 4.79 M/mm3 (4.6-6.2); White Blood Count 7.1 K/mm3 (4.4-11.0)
[2024-06-24 06:49] LABS: AST(SGOT) 15 U/L (15-37); Alanine Aminotransfer ALT/SGPT 22 U/L (16-61); Albumin, Serum 3.3 g/dL (3.2-5.0); Alkaline Phosphatase 43 U/L (45-117); Anion Gap 6 (5-15); BUN 17 mg/dL (7-18); BUN/Creat Ratio 23.9 RATIO (10-20); Calcium,Total 8.6 mg/dL (8.5-10.1); Chloride 105 mmol/L (98-107); Creatinine, Serum 0.71 mg/dL (0.70-1.30); EST Glomerular Filtration Rate 119 mL/min (>60); Est Glom Filt Rate - Afr Amer 144 mL/min (>60); Estimated Creatinine Clearance 125.14 ml/min; Globulin 3.2 g/dL (2.2-4.2); Glucose 134 mg/dL (74-106); Potassium 3.8 mmol/L (3.5-5.1); Protein, Total 6.5 g/dL (6.4-8.2); Sodium Level 138 mmol/L (136-145)
[2024-06-24 09:14] VITALS: BP 141/70; PULSE 63; RESP 16; TEMP 36.6; O2SAT 96
[2024-06-24] MEDS: hydroCHLOROthiazide 25 MG Tablet 50 MG PO (09:22)
[2024-06-24] MEDS: Aspirin E.C. 81 MG Tablet PO (09:22)
[2024-06-24] MEDS: Clopidogrel Bisulfate 75 MG Tablet PO (09:22)
[2024-06-24] MEDS: Losartan Potassium 100 MG Tablet PO (09:22)
[2024-06-24] MEDS: Atorvastatin Calcium 20 MG Tablet PO (09:22)
[2024-06-24 09:23] VITALS: PULSE 63
[2024-06-24] MEDS: NIFEdipine 90 MG Tablet PO (09:23)
[2024-06-24] MEDS: Metoprolol(XL)Succ 25 MG Tablet PO (09:23)
--- NOTE | 2024-06-24 09:45 | CASEMGMT ---
Patient has order for discharge. RN CM in to discuss needs at discharge. Patient denies need or help at discharge. Patient had no further questions or concerns.
--- NOTE | 2024-06-24 10:16 | PHA.DC.MR.R ---
Pharmacy [place] Med Reconciliation Pharmacy Service has performed discharge medication reconciliation for this patient. The patient's discharge medication list was reviewed for discrepancies and discrepancies were resolved. Medications at Discharge Home Medications hydrochlorothiazide 50 mg tablet 50 mg PO QAM 07/29/23 losartan 100 mg tablet 100 mg PO DAILY 12/26/23 aspirin 81 mg tablet,delayed release (Adult Aspirin Regimen) 81 mg PO DAILY #30 tabs 03/31/24 clopidogrel 75 mg tablet (Plavix) 75 mg PO .daily #90 tabs 03/31/24 atorvastatin 20 mg tablet 20 mg PO QDAY 04/15/24 metoprolol succinate 25 mg tablet,extended release 24 hr 25 mg PO DAILY #90 tabs 04/28/24 nifedipine 90 mg tablet,extended release 24 hr 90 mg PO DAILY #90 tabs 04/28/24
== END 2024-06-24 12:20 | disposition home or self-care (01) ==
LOC: CLSP 10:17 → PCU 11:11
PROVIDERS: Physician Assistant Medical; Admitting Provider Internal Medicine Cardiovascular Disease; PCP Nurse Practitioner Family; Referring Provider Internal Medicine Cardiovascular Disease; Visit Provider Internal Medicine Cardiovascular Disease
DX: I25.118 Atherosclerotic heart disease of native coronary artery with other forms of angina pectoris (principal); E11.51 Type 2 diabetes mellitus with diabetic peripheral angiopathy without gangrene; I49.3 Ventricular premature depolarization; E78.00 Pure hypercholesterolemia, unspecified; I47.19 Other supraventricular tachycardia; F17.210 Nicotine dependence, cigarettes, uncomplicated; I49.49 Other premature depolarization; I10 Essential (primary) hypertension; R06.02 Shortness of breath
CPT/HCPCS: 36415; 71046; 80048; 80053; 85025; 85027; 85347; 85610; 85730; 92928; 93005; 93454; 96360; 96361; 99152; 99153; 99221; J7030; J7040; Q9967; A4216; C1725; C1769; C1874; C1887; C1894; C9600; G0378

== ENCOUNTER → 2024-07-07 | Outpatient (CLI) | payer OTHER, SELFPAY ==
--- NOTE | 2024-07-07 07:52 | CDU_ITS ---
Reason For Study: Lightheadedness Rt. Velocities/BP Lt. Velocities/BP Prox CCA 80.6/13.5 cm/sec. Prox CCA 94.9/23.7 cm/sec. Mid CCA 71.1/19.2 cm/sec. Mid CCA 74/12.6 cm/sec. Dist CCA 60.7/17.3 cm/sec. Dist CCA 65.4/17.6 cm/sec. Prox ICA 67.9/16.3 cm/sec. Prox ICA 91.2/29.8 cm/sec. Mid ICA 109.7/28.6 cm/sec. Mid ICA 85.1/32.3 cm/sec. Dist ICA 85.1/22.5 cm/sec. Dist ICA 94.9/28.9 cm/sec. Rt. ICA/CCA = 1.54. Lt. ICA/CCA = 1.28. Prox ECA 139.4/13.3 cm/sec. Prox ECA 109.7/6.5 cm/sec. Rt. Vert. 54.4/17.6 cm/sec. Lt. Vert. 58.6/14.6 cm/sec. Right Extracranial There is homogeneous, smooth atherosclerotic plaque noted in the right common carotid artery. There is heterogeneous, irregular atherosclerotic plaque noted in the right internal carotid artery. There is heterogeneous, irregular atherosclerotic plaque noted in the right external carotid artery. Antegrade flow is noted in the right vertebral artery. Left Extracranial There is homogeneous, smooth atherosclerotic plaque noted in the left common carotid artery. There is heterogeneous, irregular atherosclerotic plaque noted in the left internal carotid artery. There is heterogeneous, irregular atherosclerotic plaque noted in the left external carotid artery. Antegrade flow is noted in the left vertebral artery. Procedure Carotid Duplex [id number]. This is a Carotid Duplex examination using B-mode, color flow and specral Doppler. Exam performed in department. VL/Carotid Duplex Ultrasound Interpretation Summary Mild (<50%) stenosis right extracranial internal carotid. Mild (<50%) stenosis left extracranial internal carotid. Patent and antegrade vertebrals bilaterally. Ordering Physician: Carline Melchor Referring Physician: Natalia Henry Performed By: Cherry Avalos RVT
== END | disposition home or self-care (01) ==
LOC: CVS 07:52
PROVIDERS: PCP Nurse Practitioner Family; Referring Provider Nurse Practitioner Gerontology; Visit Provider Nurse Practitioner Gerontology
DX: R42 Dizziness and giddiness (principal)
CPT/HCPCS: 93880

== ENCOUNTER → 2024-11-24 | Outpatient (CLI) | payer OTHER, SELFPAY ==
[2024-11-24 10:47] LABS: Cholesterol 119 mg/dL (200); High Density Lipoprotein 46 mg/dL; Triglycerides 61 mg/dL; Very Low Density Lipoprotein 12 mg/dL (5-40)
== END | disposition home or self-care (01) ==
LOC: LAB 09:56
PROVIDERS: PCP Nurse Practitioner Family; Referring Provider Family Medicine; Visit Provider Family Medicine
DX: I73.9 Peripheral vascular disease, unspecified (principal)

== ENCOUNTER → 2024-11-24 | Outpatient (CLI) | payer OTHER, SELFPAY ==
--- NOTE | 2024-11-24 08:56 | ART_ITS ---
Reason For Study: S/P Lt SFA - POP Atherectomy Procedure A bilateral lower extremity continuous wave Doppler with analog waveform analysis and ankle brachial indexes. Left Segmental Pressures Left brachial= 147mmHg. Left posterior tibial artery = 169mmHg. Left dorsalis pedis artery = 125mmHg. Left digit = 92 mmHg. The left posterior tibial artery waveforms are triphasic. The left dorsalis pedis waveforms are triphasic. Right Segmental Pressures Right brachial= 144mmHg. Right posterior tibial artery = 162mmHg. Right dorsalis pedis artery = 157mmHg. Right digit = 101 mmHg. The right posterior tibial artery waveforms are triphasic. The right dorsalis pedis waveforms are triphasic. Indices The right ankle brachial index by the posterior tibial artery is 1.10. The right ankle brachial index by the dorsalis pedis is 1.07. The right digital-brachial index is 0.69. The left ankle brachial index by the posterior tibial artery is 1.15. The left ankle brachial index by the dorsalis pedis is 0.85. The left digital-brachial index is 0.63. VL/Ankle Brachial Index Interpretation Summary Right ONEYDA 1.1, normal. Doppler/PVR waveforms of the right ankle normal at rest. TBI diminished, pedal/digit disease vs spasm. Left ONEYDA 1.15, normal. Doppler/PVR waveforms of the left ankle normal at rest. TBI diminished, pedal/digit disease vs spasm. Ordering Physician: Dotty Kerr Referring Physician: Natalia Henry Performed By: Phi Pineda RVT
--- NOTE | 2024-11-24 08:56 | ADUL_ITS ---
Reason For Study: S/P Lt SFA - POP A Atherectomy Left Velocities Ext. Iliac Artery, dist = 114.5 cm./sec. Common Femoral Artery, mid = 149.6 cm./sec. Supf Femoral Artery, prox = 107.6 cm./sec. Supf Femoral Artery, mid = 174.7 cm./sec. Supf Femoral Artery, dist. = 140.3 cm./sec. Profunda Femoral Artery = 109.4 cm./sec. Popliteal Artery, mid = 140.3 cm./sec. Post. Tibial Artery, prox = 127.1 cm./sec. Post. Tibial Artery, mid = 122.7 cm./sec. Post. Tibial Artery, dist = 113.9 cm./sec. Peroneal Artery, prox = 78.8 cm./sec. Peroneal Artery, mid = 70.0 cm./sec. Peroneal Artery,dist = 61.2 cm./sec. Ant. Tibial Artery, prox = 65.6 cm./sec. Ant. Tibial Artery, mid = 83.2 cm./sec. Ant. Tibial Artery, dist = 50.3 cm./sec. /US Art Duplex Unilat Lower Ext Interpretation Summary Left lower extremity arteries patent with normal velocities and no evidence of stenosis. Ordering Physician: Dotty Kerr Referring Physician: Natalia Henry Performed By: Phi Pineda, RVT
== END | disposition home or self-care (01) ==
PROVIDERS: PCP Nurse Practitioner Family; Referring Provider Physician Assistant; Visit Provider Physician Assistant
DX: I70.212 Atherosclerosis of native arteries of extremities with intermittent claudication, left leg (principal); Z48.812 Encounter for surgical aftercare following surgery on the circulatory system

== ENCOUNTER → 2025-02-04 | Outpatient (CLI) | payer OTHER, SELFPAY | END | disposition home or self-care (01) | PROVIDERS: PCP Nurse Practitioner Family; Referring Provider Nurse Practitioner Family; Visit Provider Nurse Practitioner Family | DX: I49.3 Ventricular premature depolarization (principal) | CPT/HCPCS: 93225; 93226 ==

== ENCOUNTER 2025-03-04 06:23 | Day surgery (SDC) | payer OTHER, SELFPAY ==
--- NOTE | 2025-01-01 10:24 | PAT.ANESEVAL ---
Pre-Assessment Diagnosis/Proposed Procedure Planned Operative Procedure(s): EGD Anesthesia History Anesthesia History - rehabilitation liaison: Anesthesia History - rehabilitation liaison Hx Hospitalization Yes: HEART STENT 01/01/25 09:49 Any Problems With Anesthesia No 01/01/25 09:49 Cholinesterase deficiency No 01/01/25 09:49 You/Your Family Experience No 01/01/25 09:49 fever (hyperthermia) with Relationship Recent Exposure to Contagious No 01/02/24 09:06 Disease Does patient have nerve No 01/01/25 09:49 stimulator Patient instructed to have device shut off --Does patient have Pacemaker or ICD? When Was Last Pacemaker Check QUESTION #4 FULL TEXT: You/Your Family Experience fever (hyperthermia) with Anesthesia Last Oral Intake Last Oral intake: Last Oral Intake NPO since Meds taken in AM with sips of water? Meds patient instructed to take am of surgery PONV PONV - rehabilitation liaison: PONV - rehabilitation liaison Female No 01/01/25 09:49 HX of Motion Sickness No 01/01/25 09:49 HX of N/V After Surgery No 01/01/25 09:49 Non-Smoker No 01/01/25 09:49 Duration of Surgery greater No 01/01/25 09:49 than 60 minutes Number of Risk Factors PONV Score Height & Weight Height & Weight: Anesthesia: Height & Weight Height 5 ft 10 in 10/06/24 08:35 Respiratory Assessment Respiratory Assessment - rehabilitation liaison: Respiratory Tract Infection Hx - rehabilitation liaison Hx Respiratory Tract Infection No 01/01/25 09:49 STOP Sleep Apnea STOP Sleep Apnea - rehabilitation liaison: STOP Sleep Apnea - rehabilitation liaison Hx Hypertension Yes 01/01/25 09:49 Hx Sleep Apnea No 01/01/25 09:49 CPAP BIPAP Do you snore loudly (louder No 01/01/25 09:49 than talking or can be heard Do you often feel tired/ No 01/01/25 09:49 fatigued/ sleepy during daytime? Has anyone observed you stop No 01/01/25 09:49 breathing during sleep? STOP Results Negative 01/01/25 09:49 QUESTION #5 FULL TEXT : Do you snore loudly (louder than talking or can be heard through closed doors)? 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 Specify any problems Hx of Preganancy in last 3 N/A 01/01/25 09:49 Months Nurse Filling Out Transfusion VLEHMAN 01/01/25 09:49 & Questions: Date: 01/01/25 01/01/25 09:49 Time: 09:55 01/01/25 09:49 Patient unable to answer at this time (ie. confused, unrespo /Reproduction History /Reproductive History - rehabilitation liaison: /Reproductive Hx- rehabilitation liaison Hx Now No 01/01/25 09:49 Gestational Age (in weeks): EDC: Hx Hx Para Hx Section SAB No 12/26/23 14:39 [facility] Medical History (Updated 01/01/25 @ 09:54 by Irais Lowe) Alcohol use Cardiology follow-up encounter History of echocardiogram Biatrial enlargement PVC's (premature ventricular contractions) Aftercare following surgery of the circulatory system Wears glasses No natural teeth High cholesterol History of pain when walking Atherosclerosis of resighini arteries of extremities with intermittent claudication, left leg History of colon polyps Heartburn Lipoma Encounter for screening colonoscopy Claudication of left lower extremity Smoker Severe peripheral arterial disease Claudication of both lower extremities Dyspnea on exertion Bilateral calf pain Diabetes mellitus Hypertension Home Medications ?Medication ?Instructions ?Recorded ?Last Taken ?Type losartan 100 mg tablet 100 mg PO DAILY 12/26/23 01/08/24 History atorvastatin 20 mg tablet 20 mg PO QDAY 04/15/24 Unknown History aspirin 81 mg tablet,delayed 81 mg PO DAILY 06/25/24 Unknown History release (Adult Aspirin Regimen) nifedipine 90 mg tablet,extended 90 mg PO DAILY #90 tabs 07/27/24 Unknown Rx release 24 hr clopidogrel 75 mg tablet (Plavix) 75 mg PO QDAY 12/29/24 Unknown History Allergy/AdvReac Type Severity Reaction Status Date / Time No Known Allergies Allergy Verified 12/29/24 10:02 Family History Mother Diabetes Heart disease Hypertension CVA (cerebral vascular accident) CAD (coronary artery disease) CABG at 72 Myocardial infarction Surgical History (Updated 01/01/25 @ 09:54 by Irais Lowe) History of cardiac catheterization Stented coronary artery (06/23/24) History of colonoscopy Social History Smoking Status: Current every day smoker tobacco type: cigarettes Tobacco: How many years used: 48 alcohol intake: current alcohol intake frequency: a few times a month substance use type: does not use caffeine: Yes Type: coffee Number of servings: 4 Audit: Pertinent Findings Pertinent Findings EKG Perinent findings: Sinus Jarret Stress test pertinent findings: Ok Echo (EF%) pertinent findings: ok Heart catheterization pertinent findings: ok Recommendation Anesthesia Recommendation Anesthesia recommendation: OPTIMIZED for anesthesia (Optimized for EGD)
[2025-01-07 07:45] VITALS: BP 143/68; PULSE 58; RESP 16; TEMP 36.6; O2SAT 95; BMI 30.7
[2025-03-04] VITALS (9 sets, daily range): BP systolic 95–127; BP diastolic 52–79; PULSE 46–57; RESP 14–16; TEMP 36.3–36.6; O2SAT 93–96; BMI 30.1
[2025-03-04] MEDS: Lactated Ringers 1,000 ML 15 ML IV (07:00)
--- NOTE | 2025-03-04 07:13 | PCM.PRE.AN2 ---
ASA Classification* ASA Classification ASA Classification: 3 (HTN, DM, CAD) Assessment & Plan Anesthesia* Anesthesia Assessment Anesthesia Assessment: Discussed sedation and/or anesthesia options, risks, benefits, and alternatives with patient/parents/legal guardian/POA. Questions invited. The patient/parents/legal guardian/POA seems to understand and agrees to proceed with anesthesia plan. Reviewed the physical assessment, medical history, allergy history and patient home medications list prior to surgery/procedure/anesthetic and documented any changes. Performed airway and anesthesia risk assessments. Anesthesia Type Anesthesia Type: MAC History Source History Obtained from:: Patient and Chart Anesthesia Focused Assessment* Temperature: 97.9 F Pulse Rate: 55 Blood Pressure: 127/69 Respiratory Rate: 16 Pulse Ox: 95 Oxygen Delivery Method: Room Air Airway Assessment Mouth opens: >3 cm Mallampati Score: II Teeth Condition: Dentures and Full Neck Range of motion (ROM): Full ROM Focused Labs Anesthesia Preop lab: CBC WBC 7.1 K/mm3 (4.4-11.0) 06/24/24 05:48 06/24/24 RBC 4.79 M/mm3 (4.6-6.2) 06/24/24 05:48 06/24/24 Hgb 14.5 g/dL (13.0-16.5) 06/24/24 05:48 06/24/24 Hct 42.5 % (40-54) 06/24/24 05:48 06/24/24 Plt Count 199 K/mm3 (150-450) 06/24/24 05:48 06/24/24 CHEMISTRY Potassium 3.8 mmol/L (3.5-5.1) 06/24/24 05:48 06/24/24 Sodium 138 mmol/L (136-145) 06/24/24 05:48 06/24/24 Magnesium 2.5 mg/dL (1.6-2.6) 04/28/24 11:03 04/28/24 BUN 17 mg/dL (7-18) 06/24/24 05:48 06/24/24 Creatinine 0.71 mg/dL (0.70-1.30) 06/24/24 05:48 06/24/24 Glucose 134 mg/dL (74-106) H 06/24/24 05:48 06/24/24 TSH 0.64 uIU/mL (0.358-3.74) 04/28/24 11:03 04/28/24 COAG PT 12.2 SECONDS (11.7-14.9) 06/16/24 12:06 06/16/24 Pre-Assessment Diagnosis/Proposed Procedure Planned Operative Procedure(s): EGD Anesthesia History Anesthesia History - global human resources director: Anesthesia History - global human resources director Hx Hospitalization Yes: 07-04 HEART STENT 02/26/25 15:33 Any Problems With Anesthesia No 02/26/25 15:33 Cholinesterase deficiency No 02/26/25 15:33 You/Your Family Experience No 02/26/25 15:33 fever (hyperthermia) with Relationship Recent Exposure to Contagious No 03/04/25 06:50 Disease Does patient have nerve No 02/26/25 15:33 stimulator Patient instructed to have device shut off --Does patient have Pacemaker No 03/04/25 06:50 or ICD? When Was Last Pacemaker Check QUESTION #4 FULL TEXT: You/Your Family Experience fever (hyperthermia) with Anesthesia Any additional information?: No Last Oral Intake Last Oral intake: Last Oral Intake NPO since 22:00 03/04/25 06:50 Meds taken in AM with sips of No 01/07/25 07:45 water? Meds patient instructed to take am of surgery Any additional information?: No PONV PONV - global human resources director: PONV - global human resources director Female No 02/26/25 15:33 HX of Motion Sickness No 02/26/25 15:33 HX of N/V After Surgery No 02/26/25 15:33 Non-Smoker No 02/26/25 15:33 Duration of Surgery greater No 02/26/25 15:33 than 60 minutes Number of Risk Factors PONV Score Any additional information?: No Height & Weight Height & Weight: Anesthesia: Height & Weight Height 5 ft 10 in 03/04/25 06:50 Weight: 95.3 kg 03/04/25 06:50 Body Mass Index (BMI) 30.1 03/04/25 06:50 Respiratory Assessment Respiratory Assessment - global human resources director: Respiratory Tract Infection Hx - global human resources director Hx Respiratory Tract Infection No 02/26/25 15:33 Any additional information?: No STOP Sleep Apnea STOP Sleep Apnea - global human resources director: STOP Sleep Apnea - global human resources director Hx Hypertension Yes 02/26/25 15:33 Hx Sleep Apnea No 02/26/25 15:33 CPAP BIPAP Do you snore loudly (louder No 02/26/25 15:33 than talking or can be heard Do you often feel tired/ No 02/26/25 15:33 fatigued/ sleepy during daytime? Has anyone observed you stop No 02/26/25 15:33 breathing during sleep? STOP Results Negative 02/26/25 15:33 QUESTION #5 FULL TEXT : Do you snore loudly (louder than talking or can be heard through closed doors)? 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 Specify any problems Hx of Preganancy in last 3 N/A 02/26/25 15:33 Months Nurse Filling Out Transfusion JZOLLINGE 02/26/25 15:33 & Questions: Date: 02/26/25 02/26/25 15:33 Time: 15:33 02/26/25 15:33 Patient unable to answer at this time (ie. confused, unrespo Any additional information?: No /Reproduction History /Reproductive History - global human resources director: /Reproductive Hx- global human resources director Hx Now No 02/26/25 15:33 Gestational Age (in weeks): EDC: Hx Hx Para Hx Section SAB No 02/26/25 15:33 Any additional information?: No Active Medications Active Medications: Current Medications Generic Name Dose Route Start Last Admin Trade Name Freq PRN Reason Stop Dose Admin Lactated Ringer's 1,000 mls @ 15 mls/hr 03/04/25 06:45 03/04/25 07:00 IV 15 mls/hr .Q48H CHUNG Administration PFSH Medical History Alcohol use Cardiology follow-up encounter History of echocardiogram Biatrial enlargement PVC's (premature ventricular contractions) Aftercare following surgery of the circulatory system Wears glasses No natural teeth High cholesterol History of pain when walking Atherosclerosis of [place] arteries of extremities with intermittent claudication, left leg History of colon polyps Heartburn Lipoma Encounter for screening colonoscopy Claudication of left lower extremity Smoker Severe peripheral arterial disease Claudication of both lower extremities Dyspnea on exertion Bilateral calf pain Diabetes mellitus Hypertension Home Medications ?Medication ?Instructions ?Recorded ?Last Taken ?Type losartan 100 mg tablet 100 mg PO DAILY 12/26/23 03/03/25 History atorvastatin 20 mg tablet 20 mg PO QDAY 04/15/24 03/03/25 History aspirin 81 mg tablet,delayed 81 mg PO DAILY 06/25/24 02/26/25 History release (Adult Aspirin Regimen) clopidogrel 75 mg tablet (Plavix) 75 mg PO QDAY 12/29/24 02/26/25 History hydrochlorothiazide 50 mg tablet 50 mg PO .QD 02/26/25 03/03/25 History metoprolol succinate 25 mg 25 mg PO DAILY 02/26/25 03/03/25 History tablet,extended release 24 hr Allergy/AdvReac Type Severity Reaction Status Date / Time No Known Allergies Allergy Verified 03/04/25 06:46 Family History Mother Diabetes Heart disease Hypertension CVA (cerebral vascular accident) CAD (coronary artery disease) CABG at 72 Myocardial infarction Surgical History History of cardiac catheterization Stented coronary artery (06/23/24) History of colonoscopy Social History Smoking Status: Current every day smoker tobacco type: cigarettes Tobacco: How many years used: 48 alcohol intake: current alcohol intake frequency: a few times a month substance use type: does not use caffeine: Yes Type: coffee Number of servings: 4 Prior Cardiac Testing/Procedures Prior Cardiac Testing/Procedures: Echocardiogram, Stress Test and Stenting Review of Systems (Anesthesia) ROS Narrative System reviewed and no additional complaints, except as documented. Cardiovascular Cardiovascular: Reports hypertension Respiratory/Chest Respiratory/Chest: Reports cough Physical Exam Narrative Pt. Denies CP, SOB, Stopped ASA and Plavix last Saturday Const alert and oriented x3 Orientation / Consciousness: awake Neck full ROM Chest Chest Narrative: RRR Resp normal respiratory effort, normal air movement and clear to auscultation bilaterally Resp Narrative: Few Exp. Wheeze clears with cough Auscultation: clear to auscultation bilaterally Cardio regular rate, regular rhythm and no murmurs Back/Spine normal ROM Extremity full ROM Skin Rashes: no rashes Neuro oriented x3 and moves all extremities
--- NOTE | 2025-03-04 07:30 | EGD_PTH ---
PATIENT: KEATON HARLEY LOC: EN U#:[id number] AGE/SX: 65/M ROOM: RE03/04/[address]: Dr. Inder Lemos MD : 1960 BED: DIS: 03/04/2025 SPEC #: [id number] RECD: 03/04/25 13:44 STATUS: DEANA RERizwana #: [id number] GEETA: 03/04/25 07:[address]: Inder Lemos DEPT: SURGICAL PATHOLOGY RECD BY: Misbah Silva ENTERED: 03/04/25 13:45 SP TYPE: EGD BIOPSY OT DR: Natalia Henry, CHIP BIN OPERATOR-C Tissues: A - Gastric mucous membrane B - COLON BIOPSY C - Esophagus, NOS D - Esophagus, NOS Procedures: Immunohistochemical Stains Surgery Specimen Level IV IHC Stain ADDITIONAL HEADER OPERATION: EGD with biopsy and bipolar electrohemostasis, clip application PRE-OP DIAGNOSIS: Nielson's esophagus with dysplasia, unspecified TISSUE SUBMITTED: A- Antrum biopsy, B- Lesser curvature mucosa biopsy, C- Gastroesophageal junction biopsy, D- Distal esophagus plaque biopsy MICROSCOPIC DIAGNOSIS A. Stomach, antrum, biopsy: * Antral mucosa with features of reactive gastropathy and focal intestinal metaplasia. * Negative for dysplasia. * IHC negative for H pylori organisms. B. Stomach, lesser curvature, biopsy: * Oxyntic mucosa with features of reactive gastropathy. * Negative for Helicobacter-like organisms (H&E). C. Gastroesophageal junction, biopsy: * Nielson mucosa with reactive changes. * Negative for dysplasia (deeper sections examined). * IHC for p53 is wildtype and the Ki67 proliferative index is not significantly increased. D. Esophagus, distal, plaque, biopsy: * Squamous mucosa with reactive changes. * Negative for increased eosinophils. MICROSCOPIC DESCRIPTION Slides are reviewed. These tests were developed and their performance characteristics determined by [facility]. They may not have been cleared or approved by the U.S. Food and Drug Administration. The FDA has determined that such clearance or approval is not necessary. The above immunohistochemical/dualISH markers are ordered and reviewed by the Pathologist. GROSS DESCRIPTION A. Received in formalin in a container labeled with the patient's name, date of , and antrum biopsy for H. pylori and path are 2 west-pink fragments of mucosal tissue each measuring 0.3 x 0.2 x 0.2 cm. Submitted in toto in A1. B. Received in formalin in a container labeled with the patient's name, date of , and lesser curvature mucosa biopsy is a 0.5 x 0.3 x 0.3 cm fragment of west-pink mucosal tissue. Submitted in toto in B1. C. Received in formalin in a container labeled with the patient's name, date of , and GE junction biopsy are multiple west-pink fragments of mucosal tissue measuring 0.9 x 0.6 x 0.3 cm in aggregate. Submitted in toto in C1. D. Received in formalin in a container labeled with the patient's name, date of , and distal esophagus plaque biopsy is a 0.5 x 0.3 x 0.2 cm fragment of west-pink mucosal tissue. Submitted in toto in D1. [facility] 03-04-2025 CPT:[id number]
--- NOTE | 2025-03-04 07:40 | HP.PCM_ITS ---
History and Physical Date of Admission: 03/04/25 [facility] [address] [place], [place] [address] OFFICE VISIT Date of Service: 10/22/24 MR#: [id number] Acct: [id number] Name: KEATON COLLAZO Rep #: [id number] : 1960 Provider: Dr. Inder Lemos MD Age/Sex: 64/M Location: [facility] Status: Signed Intake Vital Signs 07/16/2408:10 10/06/2408:35 10/22/2414:12 Height 5 ft 10 in 5 ft 10 in Weight: 213 lb 216 lb BMI 30.5 30.9 BP 146/73 H 152/51 H 138/71 H Blood Pressure Location Rt brachial Lt brachial Rt brachial Position Sitting Sitting Sitting Respiration 18 16 17 Pulse 72 52 L 55 L Pulse Source Monitor NIBP Monitor Temp 97.5 F L Temp Source Temporal Pulse Oximetry (%) 96 95 Oxygen Delivery Method room air room air Intake Visit Reasons: DISCUSS BARRETTS, RECALL LETTER Chief Complaint: barretts/recall for EGD Is patient in pain?: No Allergies No Known Allergies Allergy (Verified 10/22/24 14:13) Medications ?Medication ?Instructions ?Recorded ?Confirmed ?Type losartan 100 mg tablet 100 mg PO DAILY 12/26/23 10/22/24 History atorvastatin 20 mg tablet 20 mg PO QDAY 04/15/24 10/22/24 History metoprolol succinate 25 mg 25 mg PO DAILY #90 tabs 04/28/24 10/22/24 Rx tablet,extended release 24 hr aspirin 81 mg tablet,delayed 81 mg PO DAILY 06/25/24 10/22/24 History release (Adult Aspirin Regimen) clopidogrel 75 mg tablet (Plavix) 75 mg PO .daily #94 tabs 06/25/24 10/22/24 Rx nifedipine 90 mg tablet,extended 90 mg PO DAILY #90 tabs 07/27/24 10/22/24 Rx release 24 hr PFSH Medical History Claudication of both lower extremities Severe peripheral arterial disease Claudication of left lower extremity Encounter for screening colonoscopy Lipoma Atherosclerosis of [place] arteries of extremities with intermittent claudication, left leg Aftercare following surgery of the circulatory system PVC's (premature ventricular contractions) Biatrial enlargement Wears glasses No natural teeth High cholesterol History of pain when walking History of colon polyps Heartburn Smoker Dyspnea on exertion Bilateral calf pain Diabetes mellitus Hypertension Surgical History Stented coronary artery (06/23/24) History of colonoscopy Family History Mother Diabetes Heart disease Hypertension CVA (cerebral vascular accident) CAD (coronary artery disease) CABG at 72 Myocardial infarction Social History Smoking Status: Current every day smoker tobacco type: cigarettes Tobacco: How many years used: 48 alcohol intake: current alcohol intake frequency: a few times a week substance use type: does not use caffeine: Yes Type: coffee Number of servings: 4 HPI HPI HPI: Patient is 64-year-old male who is established with me related to history of double endoscopy in December 2023 and subsequently diagnosed with Nielson's esophagus, but is also interested in undergoing excision of multiple subcutaneous lipomas. Following our endoscopy session patient required emergent vascular surgery intervention with left SFA atherectomy and remains on aspirin and Plavix. Beyond this issue he has followed with cardiology for history of carotid artery stenosis and coronary artery atherosclerosis. He was last seen 07/16/2024. Today he updates me stating that he has had no reflux. He does describe some occasional heartburn (estimating this at 1 time per week) but states he is always able to trace it back to something is eaten. He denies any swallowing difficulties. He reports that he is due to follow-up with vascular surgery and cardiology in November and December 2024, respectively. He confirms that he has had no issues with his lower extremity since his procedure in December. He expresses an ongoing interest in excision of his right neck and left thoracic back lipomas as they cause occasional interference with sleep. Below is recapitulated from patient's initial consultation visit: Patient is a 64-year-old male who underwent original consultation 11/28/2023 for a primary concern of needing to schedule surveillance colonoscopy due to history of adenomatous polyps, however, during that consultation we discussed potential excision of multiple lipomas. Since his double endoscopy December of this year, patient notes that he has undergone evaluation of his peripheral arterial disease with vascular surgery and then confirms EHR evidence of a cardiac cath for anginal symptoms on 06/23/[address] Lujan. He presents to today's visit with his . Together they describe initial plans for tertiary referral to [facility], but through further conferencing with [facility] it was recommended that they simply monitor (rather than consider additional endovascular procedures) Mr. Redding's cardiac condition for the next 3 months. He shares that he will have follow-up October with the [facility]. He also provides an update that his chest pain is somewhat better. To this end he confirms both the decreased frequency and the pains onset as well as its intensity. He also confirms that he is still smoking 2 packs/day. He shares that only his right lateral neck lipoma is causing him any discomfort. As we are parting ways for this visit, Mr. Redding asks as well about recommendations for a follow-up EGD. ROS General General: No weight change, appetite, fatigue, colon cancer, breast cancer or weakness HEENT HEENT: No difficulty swallowing, eye injury, eye surgery, swollen glands or h oarseness Endo Endocrine: No thyroid disease, diabetes mellitus, thyroid cancer, Hair loss, heat intolerance or cold intolerance Skin Skin: No rash or changing moles Musc Musculoskeletal: Yes back problems; No arthritis, rheumatoid arthritis, gout or joint pain Cardio Cardiovascular: Yes high blood pressure; No murmur, pacemaker, heart disease, atrial fibrillation, heart attack, heart stent, palpitations, shortness of breat with exertion or chest pain Psych Psychiatric: No depression, anxiety or hearing voices Resp Respiratory: No shortness of breath, No sleep apnea, Yes cough, No COPD, No asthma, No emphysema and No wheezing Gastro Gastrointestinal: No abdominal pain, No nausea or vomiting, No diarrhea, No constipation, No blood in stool, Yes acid reflux, No hemorrhoids, No ulcers, No gallbladder problem and No black,tarry stools Andrew Hematologic: Yes blood thinners, No blood disorders, No bleeding, No anemia and No blood clots Additional Details: ASA Neuro Neurologic: No system reviewed and no additional complaints, except as documented, No as per HPI, No abnormal gait, No abnormal hearing, No abnormal movements, No abnormal speech, No behavioral changes, No burning sensations, No confusion, No convulsions, No disequilibrium, No dizziness, No localized weakness, No frequent falls, No headache(s), No lack of coordination, No loss of vision, No memory loss, Yes numbness, No other visual disturbances, No radicular pain, No restless legs, No sensory deficit, No syncope, Yes tingling, No tremor(s), No weakness and No other Exam Const General: cooperative and no acute distress Neck Other: Right posterior neck lipoma estimated at 7 cm in size. It is somewhat mobile and nontender to palpation Resp Effort & Inspection: normal respiratory effort GI Other: Nondistended Skin Other: Left thoracic lipoma encountered laterally estimated at 12 cm in diameter. Nontender to palpation. Assessment and Plan Assessment and Plan (1) Nielson's esophagus with dysplasia, unspecified: Status: Acute Comment: Patient with nondefinitive low-grade dysplasia of Nielson's esophagus. I have recommended surveillance endoscopy at 1 year. We will revisit this issue at patient's follow-up visit in October, but he would need to hold his antiplatelet for EGD with biopsy as well. Update 10/22/2024: Patient denies any frequent difficulty with reflux or heartburn. Further, he denies any difficulty with dysphagia. Yet, with his ambiguous pathology from his EGD earlier this year in December I am recommending we repeat his EGD at 1 year (December 2024) to get a better gauge of whether or not dysplasia is present in the Nielson's segment. I have stressed that I want to keep proper priority with his health and have triaged this secondary to concerns around his carotid artery disease, coronary artery disease, and peripheral arterial disease. Now that these appear to be stable, we will look for permission from vascular surgery to hold his Plavix and aspirin for 5 days preprocedurally as I anticipate biopsy at the time of his EGD. Plan: ? EGD with biopsy tentatively planned for December 2024 ? Seek approval from vascular surgery to hold patient's Plavix and aspirin 5 days preprocedural in 2 days following (2) Multiple lipomas: Status: Chronic Comment: Patient is 64-year-old male known to me from history of double endoscopy who wishes to undergo elective lipoma removal. His right lateral neck lipoma has contributed significant discomfort but his thumb and left flank lipomas are asymptomatic. These lesions appear stable in size. In the interim Mr. Collazo has undergone coronary PCI and remains on Plavix. With this latest development and the uncertainty about requiring additional stenting I recommended we wait for his next cardiology evaluation in October as I would need for him to hold his antiplatelet therapy for this elective procedure. Patient and his expressed understanding of this priority. We will schedule him for early October and follow-up of his cardiology appointment to see if ad ditional operative plans can be made at that time. Update 10/22/2024: Patient appears to be stable concerning symptoms or growth from his lipomas. He is still very interested in having these areas removed as they negatively impact sleep. I have stressed to him that I want to proceed with repeat EGD and evaluation of his Nielson's segment prior to proceeding with these presumably benign growths. Given their size and depth a preprocedural hold of the Plavix and aspirin would be required for this procedure as well. Suggested that we wait until after his EGD is completed before considering sc heduling of lipoma excision. I am encouraged that his recent cardiology evaluation seems to show stability of his carotid and coronary vascular disease without an intent to pursue further intervention in the near future. Plan: Continue to hold on scheduling lipoma excision until after completion of EGD and repeat cardiology evaluation due to December 2024. I have examined the patient the following changes are noted: Patient has held Plavix appropriately for today's procedure. He denies any recent swallowing difficulty. He further denies any recent heartburn or reflux. Plan to proceed to endoscopy suite for EGD as described above.
--- NOTE | 2025-03-04 08:38 | PCM.POST.ANE ---
Anesthesia: Postop Eval I Current Vital Signs Temperature: 97.3 F Pulse Rate: 51 Blood Pressure: 98/52 Respiratory Rate: 14 Pulse Ox: 95 Oxygen Delivery Method: Room Air Assessment Airway patent: Yes Spontaneous unlabored respirations: Yes Mental status: Asleep nausea: No Vomiting: No Anesthesia Complication: No Fluid Hydration Crystalloid volume administer (ml): 700 Total IV fluid infused: 700 Progress Note Anesthesia document: Postop Eval 1 completed: Yes
--- NOTE | 2025-03-04 08:51 | OP.EGD_ITS ---
Patient Name: Jamey Collazo Procedure Date: 03/04/2025 8:28 AM Date of : 1960 Age: 65 Procedure: Upper GI endoscopy Indications: Esophageal reflux, Reflux esophagitis, Surveillance for malignancy due to personal history of Nielson's esophagus Providers: Inder Lemos MD Referring MD: Inder Lemos MD Medicines: See the Anesthesia note for documentation of the administered medications Patient Profile: Refer to note in patient chart for documentation of history and physical. Complications: No immediate complications. Estimated blood loss: Minimal. Procedure: Pre-Anesthesia Assessment: - The heart rate, respiratory rate, oxygen saturations, blood pressure, adequacy of pulmonary ventilation, and response to care were monitored throughout the procedure. After obtaining informed consent, the endoscope was passed under direct vision. Throughout the procedure, the patient's blood pressure, pulse, and oxygen saturations were monitored continuously. The gastroscope was introduced through the mouth, and advanced to the second part of duodenum. The upper GI endoscopy was somewhat difficult due to excessive bleeding. Successful completion of the procedure was aided by performing the maneuvers documented (below) in this report. The patient tolerated the procedure well. Scope In: 7:59:35 AM Scope Out: 8:30:23 AM Total Procedure Duration Time 0 hours 30 minutes 48 seconds Findings: No gross lesions were noted in the entire examined duodenum. No biopsies or other specimens were collected for this exam. Localized mildly erythematous mucosa without bleeding was found in the gastric antrum. Biopsies were taken with a cold forceps for Helicobacter pylori testing. Estimated blood loss was minimal. Localized mildly erythematous mucosa without bleeding was found on the lesser curvature of the gastric body. Biopsies were taken with a cold forceps for histology. Estimated blood loss was minimal. A medium amount of food (residue) was found in the gastric body. The Z-line was irregular and was found 43 cm from the incisors. Biopsies were taken with a cold forceps for histology. Estimated blood loss: 3 mL requiring treatment with placement of hemostatic clip(s). A single 12 mm plaque was found in the lower third of the esophagus. Biopsies were taken with a cold forceps for histology. Estimated blood loss was minimal. The exam was otherwise without abnormality. Impression: - No gross lesions in the entire examined duodenum. No specimens collected. - Erythematous mucosa in the antrum. Biopsied. - Erythematous mucosa in the lesser curvature of the gastric body. Biopsied. - A medium amount of food (residue) in the stomach. - Z-line irregular, 43 cm from the incisors. Biopsied. - A single plaque in the lower third of the esophagus. Biopsied. - The examination was otherwise normal. Recommendation: - Discharge patient to home (via wheelchair). - Soft diet today. - Resume Plavix (clopidogrel) at prior dose in 2 days. Refer to managing physician for further adjustment of therapy. - Await pathology results. - Telephone my office for pathology results in 1 week. Procedure Code(s): --- Professional --- 16795, Esophagogastroduodenoscopy, flexible, transoral; with biopsy, single or multiple Diagnosis Code(s): --- Professional --- K22.70, Nielson's esophagus without dysplasia K31.89, Other diseases of stomach and duodenum K22.89, Other specified disease of esophagus K21.00, Gastro-esophageal reflux disease with esophagitis, without bleeding CPT copyright 2021 [employer]. All rights reserved. 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 Inder Lemos MD 03/04/2025 8:51:01 AM This report has been signed electronically. Number of Addenda: 0 Note Initiated On: 03/04/2025 8:28 AM
--- NOTE | 2025-03-04 08:52 | OP.CCLET_ITS ---
03/04/2025 Blanca Jernigan Re : Upper GI endoscopy procedure for Jamey Collazo Dear Carl This procedure was performed on February. My impressions and recommendations are as follows: Impressions : - No gross lesions in the entire examined duodenum. No specimens collected. - Erythematous mucosa in the antrum. Biopsied. - Erythematous mucosa in the lesser curvature of the gastric body. Biopsied. - A medium amount of food (residue) in the stomach. - Z-line irregular, 43 cm from the incisors. Biopsied. - A single plaque in the lower third of the esophagus. Biopsied. - The examination was otherwise normal. Recommendations : - Discharge patient to home (via wheelchair). - Soft diet today. - Resume Plavix (clopidogrel) at prior dose in 2 days. Refer to managing physician for further adjustment of therapy. - Await pathology results. - Telephone my office for pathology results in 1 week. My findings are described in the full procedure note, which is enclosed. If I can be of further assistance, please feel free to contact me at Doctor phone number(s): , Work: . Sincerely, Inder Lemos MD 03/04/2025 8:51:01 AM This report has been signed electronically.
--- NOTE | 2025-03-04 14:19 | PCM.POSTANE2 ---
Anesthesia Postop Eval I Sum Postop Eval Completion status Anesthesia document: Postop Eval 1 completed: Yes Anesthesia Postop Eval I Summary Anesthesia Postop Eval I Summary: Anesthesia Postop Eval I: Assessment Summary Airway patent Yes 03/04/25 08:39 [email or web address] Spontaneous unlabored Yes 03/04/25 08:39 [email or web address] respirations Mental status Asleep 03/04/25 08:39 [email or web address] nausea No 03/04/25 08:39 [email or web address] Vomiting No 03/04/25 08:39 [email or web address] Anesthesia Postop Eval I: Fluid Summary Crystalloid volume administer 700 03/04/25 08:39 [email or web address] (ml) Colloids volume administered ( ml) Blood Product volume administered (ml) Total IV fluid infused 700 03/04/25 08:39 [email or web address] Anesthesia Postop Eval I: Summary Notes Anesthesia Complication No 03/04/25 08:39 [email or web address] Anesthesia Complication Comment: Post-operative progress note Anesthesia: Postop Eval II Evaluation Mental status: Awake and Calm Pain Level: 0 nausea: No Vomiting: No Complications Anesthesia Complication: No
== END 2025-03-04 09:16 | disposition home or self-care (01) ==
LOC: EN 06:25 → AC 06:27
PROVIDERS: PCP Nurse Practitioner Family; Referring Provider Surgery; Visit Provider Surgery
PROC: 0DJ08ZZ Inspection of Upper Intestinal Tract, Via Natural or Artificial Opening Endoscopic (ICD-10-PCS; CPT 43235; principal; 2025-03-04 07:25)
DX: K22.70 Barrett's esophagus without dysplasia (principal); E11.51 Type 2 diabetes mellitus with diabetic peripheral angiopathy without gangrene; K21.00 Gastro-esophageal reflux disease with esophagitis, without bleeding; K22.89 Other specified disease of esophagus; K31.89 Other diseases of stomach and duodenum; I10 Essential (primary) hypertension; E78.00 Pure hypercholesterolemia, unspecified; I77.9 Disorder of arteries and arterioles, unspecified; I25.10 Atherosclerotic heart disease of native coronary artery without angina pectoris; F17.210 Nicotine dependence, cigarettes, uncomplicated; Z79.82 Long term (current) use of aspirin; Z79.02 Long term (current) use of antithrombotics/antiplatelets; Z79.899 Other long term (current) drug therapy; Z95.5 Presence of coronary angioplasty implant and graft; Z86.0101 Personal history of adenomatous and serrated colon polyps; Z83.3 Family history of diabetes mellitus
CPT/HCPCS: 43239; 88305; 88341; 88342; C1889; A4216; J2405

== ENCOUNTER → 2025-05-27 | Outpatient (CLI) | payer OTHER, SELFPAY ==
--- NOTE | 2025-05-27 07:49 | ART_ITS ---
Reason For Study Reason For Study: S/P Lt SFA - Ayah Atherectomy Procedure A bilateral lower extremity continuous wave Doppler with analog waveform analysis,segmental pressures,and ankle brachial indexes without exercise. Left Segmental Pressures Left brachial= 130mmHg. Left posterior tibial artery = 161mmHg. Left dorsalis pedis artery = 152mmHg. Left digit = 93 mmHg. The left dorsalis pedis waveforms are biphasic. The left posterior tibial artery waveforms are triphasic. Right Segmental Pressures Right brachial= 138mmHg. Right posterior tibial artery = 158mmHg. Right dorsalis pedis artery = 168mmHg. Right digit = 91 mmHg. The right dorsalis pedis waveforms are triphasic. The right posterior tibial artery waveforms are triphasic. Indices The right ankle brachial index by the dorsalis pedis is 1.22. The right ankle brachial index by the posterior tibial artery is 1.14. The right digital-brachial index is 0.66. The left ankle brachial index by the dorsalis pedis is 1.10. The left ankle brachial index by the posterior tibial artery is 1.17. The left digital-brachial index is 0.67. VL/Ankle Brachial Index Interpretation Summary Right ONEYDA 1.22, normal. Doppler/PVR waveforms of the right ankle normal at rest . TBI diminished, pedal/digit disease vs spasm. Left ONEYDA 1.17, normal. Doppler/PVR waveforms of the left ankle normal at rest. TBI diminished, pedal/digit disease vs spasm. Ordering Physician: Dotty Kerr Referring Physician: Juan Jose Up Performed By: Cherry Avalos RVT
--- NOTE | 2025-05-27 07:49 | ADUL_ITS ---
Reason For Study Reason For Study: S/P Lt SFA - Ayah Atherectomy Left Velocities Ext Iliac Artery, dist = 133.6 cm./sec. Common Femoral Artery, mid = 117.7 cm./sec. Supf. Femoral Artery, prox = 97.9 cm./sec. Supf. Femoral Artery, mid = 234.7 cm./sec. Supf. Femoral Artery, dist = 93.5 cm./sec. Profunda Femoral Artery = 76 cm./sec. Popliteal Artery, mid = 80.6 cm./sec. Post. Tibial Artery, prox = 92.4 cm./sec. Post Tibial Artery, mid = 119.8 cm./sec. Post Tibial Artery, dist. = 103.4 cm./sec. Peroneal Artery, prox = 65.5 cm./sec. Peroneal Artery, mid = 66.6 cm./sec. Peroneal Artery,dist. = 49 cm./sec. Ant.Tibial Artery, prox = 58.9 cm./sec. Ant Tibial Artery, mid = 40.7 cm./sec. Ant. Tibial Artery, distal = 27.6 cm./sec. Procedure Exam performed in department. /US Art Duplex Unilat Lower Ext Interpretation Summary Left superficial femoral artery with 20-49% stenosis. Ordering Physician: Dotty Kerr Referring Physician: Juan Jose Montes Performed By: Cherry Avalos RVT
== END | disposition home or self-care (01) ==
LOC: CVS 07:47
PROVIDERS: PCP Family Medicine; Referring Provider Physician Assistant; Visit Provider Physician Assistant
DX: I70.212 Atherosclerosis of native arteries of extremities with intermittent claudication, left leg (principal); Z48.812 Encounter for surgical aftercare following surgery on the circulatory system
CPT/HCPCS: 93922; 93926

== ENCOUNTER → 2025-08-09 | Outpatient (CLI) | payer BC, SELFPAY ==
--- OUTSIDE RECORDS SUMMARY | 2024-12-17 19:58 | XMS RPT_ITS ---
Author Name Auto Generated Organization [facility] Care Team Providers Care Account Development Specialist Name Role Phone Vee MONTES Consulting Unavailable Vee MONTES Referring Unavailable VAL PUENTE Admitting Unavailable VAL PUENTE Primary Care Unavailable VAL PUENTE Attending Unavailable PROVIDER, UNKNOWN Consulting Unavailable PROVIDER, UNKNOWN Consulting Unavailable PROVIDER, UNKNOWN Consulting Unavailable Vee MONTES Admitting Unavailable Vee MONTES Primary Care Unavailable Vee MONTES Attending Unavailable ISAURO MORALES Consulting Unavailable PROVIDER, UNKNOWN Consulting Unavailable PROVIDER, UNKNOWN Consulting Unavailable PROVIDER, UNKNOWN Consulting Unavailable PROBLEMS No Problem Records Found PROCEDURES No Procedure Records Found RESULTS ED PHYSICIAN CLINICAL REPORT Observed: 12/17/2024 6:58 PM Status: F Source: [facility] Narrative Physician Clinical Narrative [address] [address] [id number] 12/17/2024 Patient: KEATON HARLEY Sex: Male : 1960 Age: 64y Primary Insurance: [employer] OUTPATIENT Policy Number: [id number] Group Number: [id number] Subscriber: Other Disposition: Discharge to Home Disposition Decision Time: 02:46 12/18/2024 Departure Time: 02:54 12/18/2024 Measurements Wt: 95.3 kg, Ht/Jose: 70.0 in, BMI: 30.13 Initial Vital Sign Measured Time BP MAP HR RR O2Sat ETCO2 Temp Pain GCS RTS 20:00 12/17/2024 152/79 103 58 16 97% 98.0 F 2 Time Seen: 01:09 12/18/2024. Arrived- By private vehicle. HISTORY OF PRESENT ILLNESS Chief Complaint: INJURY TO FACE and NOSE. Location of injuries- nose (complaining of a laceration left side of his nose after a grinding wheel he was using broke and struck him in the face.). The injury occurred just prior to arrival. The patient sustained a blow with a metal object. Occurred at home. The patient complains of mild pain. REVIEW OF SYSTEMS 1 of 4 Narrative SKIN: The patient sustained skin laceration. : No bladder dysfunction. RESPIRATORY: No difficulty breathing. CVS: No chest pain. EYES: No loss of vision. EARS: No hearing loss. NEUROLOGICAL: No seizure or numbness. PAST HISTORY See nurses notes. Hypertension Surgeries: Cardiac Catheterization: (with stents) vascular surgery left leg Medications: atorvastatin 20 mg tablet: 1 tablet once a day. clopidogrel 75 mg tablet: 1 tablet once a day. hydrochlorothiazide 50 mg tablet: 1 tablet once a day. losartan 100 mg tablet: 1 tablet once a day. metoprolol succinate ER 25 mg tablet,extended release 24 hr: 1 tablet once a day. nifedipine ER 90 mg tablet,extended release 24 hr: 1 tablet once a day. Allergies: no known drug allergies SOCIAL HISTORY Heavy tobacco smoker- 1 pack per day. No alcohol use or drug use. ADDITIONAL NOTES The nursing notes have been reviewed. PHYSICAL EXAM Appearance: Alert. No acute distress. Eyes: Pupils equal, round and reactive to light. EOM intact. ENT: No dental injury. Pharynx normal. Nose: mild swelling, 2.0 cm laceration with controlled bleeding involving the left nasal ala and small abrasion and dried nasal blood on the left side. SEE LACERATION 2 of 4 Narrative PROCEDURE NOTE #1. No tenderness or deformity over the nose or puncture wound. No avulsion. No septal hematoma, foreign body or deformity consistent with a nasal fracture. Neck: Painless ROM. Non-tender. CVS: Normal heart rate and rhythm. Heart sounds normal. Pulses normal. Respiratory: Painless inspiration. Breath sounds normal. Chest nontender. Abdomen: Soft and nontender. No organomegaly. Skin: Skin warm and dry. Extremities: Normal inspection. Extremities atraumatic. Neuro: Oriented X 3. Mood/affect normal. Speech normal. No motor deficit. No sensory deficit. PROGRESS AND PROCEDURES Laceration Repair: Time: 02:17 12/18/2024. Location: nose. Length: 2.0cm. Complexity: simple (local anesthesia used and sutured). Wound depth/shape- subcutaneous. Distal neuro/vascular/tendon status normal. Local anesthesia provided using 1% lidocaine. Prepped with chlorhexidine. Wound explored, examined to the base in bloodless field, cleansed and irrigated extensively with normal saline. Closure of skin: interrupted 3-0 (8 sutures). Post-procedure: the patient is stable and there are no complications. Bleeding is controlled and neuro-vascular status is intact distal to the wound. Dressing applied. Tetanus immunization given. Estimated blood loss: 1 mL. MEDICAL DECISION MAKING: The patient has been stable and has improved. The pain has resolved. The exam got better. ( Eight simple ruptured sutures left side of the nose. No bony tenderness to the nasal bridge. No septal hematoma.). (Patient was using a grinding wheel which broke and a piece of it flew off the fly we will instruct him on the left side of the nose. He denies any loss of consciousness. Denies any nausea vomiting. Denies any headache. States his last tetanus greater than 5 years ago. He does complain of laceration left side of his nose. This occurred around 4:30 p.m. anne.). Disposition: Condition: good. Disposition Decision Time: 02:46 12/18/2024. Patient discharged to Home. Discharged in good and improved condition. Discharge decision based on the following: patient's condition is stable; patient is ambulatory; patient drinking fluids; patient's pain is controlled; patient's exam is stable; patient's exam is improved; stable condition on multiple repeat evaluations; social support is adequate; transportation is available; follow-up is available; clinical impression is consistent with outpatient treatment. CLINICAL IMPRESSION Single superficial laceration to the nose. No foreign body present. 3 of 4 Narrative DISCHARGE INSTRUCTIONS Protect wound and keep wound area clean. (Keep the wound site clean and dry. Cleaned the wound with just mild soap and water. No peroxide. No rubbing alcohol. Any problems return to the emergency department. You did receive a tetanus shot today.). Warnings: INFECTION: Watch for signs of infection (increasing heat and redness, pus-like drainage, swelling, or increased pain). Return or see your doctor if these signs occur. GENERAL WARNINGS: Return or contact your physician immediately if your condition worsens or changes unexpectedly, if not improving as expected, or if other problems arise. Prescription Medications: cephalexin 500 mg tablet: Take 1 tablet by mouth three times a day for 7 days, dispense 21 tablet. Refills 0. Pharmacy: [facility] - [address] [place] [address]. Understanding of the discharge instructions verbalized by patient. Follow-up with: Shaila Montes MD, [facility], Phone: [phone], [address] [place] [address]. Follow up in four days. Call for an appointment. Reason for referral: evaluation and treatment. Summary of care provided to patient. (Electronically signed by Ferdinand Gibbs D.O. 12/19/24 19:40:37 EST) Generated by [facility] 4 of 4 ED NURSES CLINICAL NOTE Observed: 2024 6:58 PM Status: F Source: [facility] Nurse Narrative Nurse Clinical [address] [address] [id number] 12/17/2024 Patient: KEATON HARLEY Sex: Male : 1960 Age: 64y Primary Insurance: [employer] OUTPATIENT Policy Number: [id number] Group Number: [id number] Subscriber: Other Disposition: Discharge to Home Disposition Decision Time: 02:46 12/18/2024 Departure Time: 02:54 12/18/2024 TRIAGE Arrived by private vehicle. Historian: (patient). 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 Triage time: 19:53 12/17/2024. Acuity: LEVEL 4. Chief Complaint: INJURY TO NOSE. Occurred 17:53 12/17/2024. The patient sustained a laceration. -- 19:59 12/17/24 Elizabeth LewisNDarian 20:00 12/17/24. SEPSIS SCREEN: NEGATIVE. SIRS criteria negative. -- 20:00 12/17/24 Elizabeth LewisN. 20:00 12/17/24. BP: 152/79 MAP: 103. HR: 58. RR: 16. O2 saturation: 97% Temperature: 98 F (temporal). Pain level now 10. -- 20:00 12/17/24 Elizabeth LewisNaDrian Measurements: 19:55 12/17/24 Wt: 95.3 kg, Ht/Jose: 70.0 in, BMI: 30.13 -- 19:55 12/17/24 Elizabeth LewisN. Medications: metoprolol succinate ER 25 mg tablet,extended release 24 hr: 1 tablet once a day. -- 20:02 12/17/24 TRAM Espinosa R.N. 1 of 3 Nurse Narrative losartan 100 mg tablet: 1 tablet once a day. -- 20:02 12/17/24 Elizabeth LewisNDarian hydrochlorothiazide 50 mg tablet: 1 tablet once a day. -- 20:02 12/17/24 Elizabeth LewisNDarian clopidogrel 75 mg tablet: 1 tablet once a day. -- 20:02 12/17/24 Elizabeth LewisNDarian atorvastatin 20 mg tablet: 1 tablet once a day. -- 20:02 12/17/24 Elizabeth LewisNDarian nifedipine ER 90 mg tablet,extended release 24 hr -- 20:02 12/17/24 TRAM Espinosa RDarianNDarianUpdated through eRx -- 20:04 12/17/24 Elizabeth LewisNDarian nifedipine ER 90 mg tablet,extended release 24 hr: 1 tablet once a day. -- 20:04 12/17/24 TRAM Espinosa R.N. Allergies: no known drug allergies -- 19:57 12/17/24 Elizabeth LewisNDarian Problems: Hypertension -- 19:57 12/17/24 TRAM Espinosa R.N. ADDITIONAL SURGERIES: Cardiac Catheterization. with stents -- 19:58 12/17/24 RTAM Espinosa R.N. vascular surgery left leg -- 19:58 12/17/24 TRAM Espinosa R.N. History 19:53 12/17/24. SOCIAL HX: Heavy tobacco smoker- 1-2 packs per day. No alcohol use or drug use. The patient has not traveled outside the [place] Infectious disease exposure: No infectious disease exposure. ABUSE ASSESSMENT: The patient answered "yes" to the question(s) "Do you feel safe in your home?" and "no" to the question(s) "Are you afraid to go home?". SELF HARM ASSESSMENT: Self harm assessment was performed. The patient answered no to the question(s) "Have you recently felt down, depressed, or hopeless?" and "Do you have thoughts of harming or killing yourself?". FALL RISK ASSESSMENT: Fall risk assessment completed. No risk factors identified. -- 19:59 12/17/24 TRAM Espinosa R.N. 2 of 3 Nurse Narrative PHYSICAL ASSESSMENT 02:30 12/18/24. HEENT: Pupils equal, round and reactive to light. EOM intact. Nose: 3.0 cm laceration with controlled bleeding. Mucous membranes are pink. RESPIRATORY: Respirations not labored. CVS: Capillary refill less than 2 seconds. BACK: No neck or back tenderness. ROM normal to the neck and back. SKIN: Skin is warm and dry. -- 02:55 12/18/24 TRAM Meredith R.N. NURSING PROGRESS NOTES 00:55 12/18/24. Rounding: Pain: assessed pain level. Proximity of possessions / care items: call light within easy reach. Set expectations: advised patient of rounding protocol timing and asked if they needed anything else at this time. Two patient identifiers checked. Call light placed in reach. Side rails up x 1. Bed placed in lowest position. Brakes of bed on. -- 00:55 12/18/24 TRAM Meredith R.N. 02:44 12/18/24. Cephalexin PO Capsules 500 mg given. Allergies verified and confirmed 5 rights. Information reviewed with patient. Verbalizes understanding. -- 02:45 12/18/24 TRAM Meredith R.N. 02:45 12/18/24. Tdap IM DIPTH/TETANUS/PERT > 7yr and older 0.5 mL given. (Lot#: [id number], expiration date: 01/27/2027, mri assistant: [employer]). Given in the left deltoid. Vaccine information statement (12/18/2024) provided to the patient. -- 02:49 12/18/24 TRAM Meredith R.N. 02:52 12/18/24. Nose: applied dressing consisting of Band-Aid, following the application of antibiotic ointment. -- 02:52 12/18/24 TRAM Meredith R.N. DISPOSITION / DISCHARGE Departure time: 02:54 12/18/2024. Condition at departure: improved. Learning barriers present. Discharge instructions provided and reviewed with the patient. Reviewed medication(s) side effects, precautions, dosing and course information. Prescription(s) sent electronically to pharmacy. Reviewed wound care instructions. Patient verbalized understanding. Written instructions provided in [place]. No activity restrictions or note given. The patient was discharged by the physician. The patient was discharged home. The patient left ambulatory and via private vehicle. Patient driving. -- 02:54 12/18/24 EST Kelly Meredith R.N. (Electronically signed by Kelly Meredith R.N. 12/18/24 02:55:54 EST) Generated by [facility] 3 of 3 ED SUPER BILL Observed: 12/17/2024 6:58 PM Status: F Source: [address] [address] [id number] 12/17/2024 Patient: KEATON HARLEY Sex: Male : 1960 Age: 64y Item Professional Category Description Facility Code Code Quantity Fee Total Nurse/E/M EMERGENCY 466227 1 $0.00 $0.00 DEPARTMENT VISIT MODERATE SEVERITY (34537-85) Nurse/Procedures One vaccine 603048 1 $0.00 $0.00 (17726) Nurse/Supplies Laceration 339937 1 $0.00 $0.00 Tray (808162) Nurse/Supplies Suture (per 416703 1 $0.00 $0.00 pack) (571373) Physician/Wound Wound Repair [id number] 268546 1 $0.00 $0.00 Care (54888) Grand Total $0.00 Providers Ferdinand Gibbs D.O. 1 of 2 [facility] Chief Complaint INJURY TO FACE and NOSE. Principal Diagnosis Single superficial laceration to the nose. No foreign body present. ICD-10 Codes S01.21xA: Laceration without foreign body of nose, initial encounter 2 of 2 ED VISIT SUMMARY Observed: 12/17/2024 6:58 PM Status: F Source: [facility] Visit Overview Visit Overview [place] [address] 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 clopidogrel 75 mg tablet: 1 tablet once a day. hydrochlorothiazide 50 mg tablet: 1 tablet once a day. losartan 100 mg tablet: 1 tablet once a day. metoprolol succinate ER 25 mg tablet,extended release 24 hr: 1 tablet once a day. 1 of 3 Visit Overview nifedipine ER 90 mg tablet,extended release 24 hr: 1 tablet once a day. PAST MEDICAL HISTORY / PROBLEMS Hypertension See nurses notes PAST SURGICAL HISTORY Cardiac Catheterization. with stents vascular surgery left leg SOCIAL HISTORY Smoking status: Yes Alcohol use: No Drug use: No ED COURSE MEDICATIONS GIVEN IN EMERGENCY DEPARTMENT 02:44 12/18/24 Cephalexin PO Capsules 500 mg 02:45 12/18/24 Tdap IM DIPTH/TETANUS/PERT > 7yr and older 0.5 mL IV SITE INFORMATION INTAKE OUTPUT REASSESMENT (most recent) 02:30 12/18/24. HEENT: Pupils equal, round and reactive to light. EOM intact. Nose: 3.0 cm laceration with controlled bleeding. Mucous membranes are pink. RESPIRATORY: Respirations not labored. CVS: Capillary refill less than 2 seconds. BACK: No neck or back tenderness. ROM normal to the neck and back. SKIN: Skin is warm and dry. VITAL SIGNS First Vitals Last Vitals Temp 20:00 12/17/24 98.0 F Temp 20:00 12/17/24 98.0 F 2 of 3 Visit Overview First Vitals Last Vitals BP 20:00 12/17/24 152/79 BP 20:00 12/17/24 152/79 HR 20:00 12/17/24 58 HR 20:00 12/17/24 58 RR 20:00 12/17/24 16 RR 20:00 12/17/24 16 O2 Sat 20:00 12/17/24 97% O2 Sat 20:00 12/17/24 97% Pain 20:00 12/17/24 2 Pain 20:00 12/17/24 2 ETCO2 20:00 12/17/24 ETCO2 20:00 12/17/24 GCS 20:00 12/17/24 GCS 20:00 12/17/24 RTS 20:00 12/17/24 RTS 20:00 12/17/24 PROCEDURES NURSING INTERVENTIONS LABS / STUDIES CLINICAL IMPRESSION SINGLE SUPERFICIAL LACERATION TO THE NOSE. NO FOREIGN BODY PRESENT 3 of 3 ED PHYSICIAN DISCHARGE REPORT Observed: 12/17/2024 6:58 PM Status: F Source: [facility] Discharge Instructions Discharge Summary [address] [address] [id number] 12/17/2024 Patient: KEATON HARLEY Sex: Male : 1960 Age: 64y Thank you for visiting [facility]. You have been evaluated today by Ferdinand Gibbs D.O. for the following condition(s): Principal Diagnosis Single superficial laceration to the nose. No foreign body present. INSTRUCTIONS Protect wound and keep wound area clean. (Keep the wound site clean and dry. Cleaned the wound with just mild soap and water. No peroxide. No rubbing alcohol. Any problems return to the emergency department. You did receive a tetanus shot today.). Warnings: INFECTION: Watch for signs of infection (increasing heat and redness, pus-like drainage, swelling, or increased pain). Return or see your doctor if these signs occur. GENERAL WARNINGS: Return or contact your physician immediately if your condition worsens or changes unexpectedly, if not improving as expected, or if other problems arise. Prescription Medications: cephalexin 500 mg tablet: Take 1 tablet by mouth three times a day for 7 days, dispense 21 tablet. Refills 0. Pharmacy: [facility] - [address] [place] [id number]. Understanding of the discharge instructions verbalized by patient. Follow-up with: Shaila Montes MD, [facility], Phone: [phone], [phone] 1 of 5 Discharge [place] [address]. Follow up in four days. Call for an appointment. Reason for referral: evaluation and treatment. Summary of care provided to patient. You have been given the following additional information: Laceration, All Closures Patient Signature Facility Clerical Manager Date/Time General Instructions with ExitWriter [address] [place] [address] [phone] 12/17/2024 Patient: KEATON HARLEY Sex: Male : 1960 Age: 64y Thank you for visiting [facility]. You have been evaluated today by Ferdinand Gibbs D.O. for the following condition(s): Principal Diagnosis Single superficial laceration to the nose. No foreign body present. INSTRUCTIONS Protect wound and keep wound area clean. (Keep the wound site clean and dry. Cleaned the wound with just mild soap and water. No peroxide. No rubbing alcohol. Any problems return to the emergency department. You did receive a tetanus shot today.). Warnings: INFECTION: Watch for signs of infection (increasing heat and redness, pus-like drainage, swelling, or increased pain). Return or see your doctor if these signs occur. GENERAL WARNINGS: Return or contact your physician immediately if your condition worsens or changes 2 of 5 Discharge Instructions unexpectedly, if not improving as expected, or if other problems arise. Prescription Medications: cephalexin 500 mg tablet: Take 1 tablet by mouth three times a day for 7 days, dispense 21 tablet. Refills 0. Pharmacy: [facility] [place] [address]. Understanding of the discharge instructions verbalized by patient. Follow-up with: Shaila Montes MD, [facility], Phone: [phone], [phone] [place] [address]. Follow up in four days. Call for an appointment. Reason for referral: evaluation and treatment. Summary of care provided to patient. ADDITIONAL INFORMATION Laceration, All Closures A laceration is a cut through the skin. This will usually require stitches or jose de jesus if it's deep. Minor cuts may be treated with a surgical tape closure or skin glue. 3 of 5 Discharge Instructions Home care Your healthcare provider may prescribe an antibiotic. This is to help prevent infection. Follow all instructions for taking this medicine. Take the medicine every day until it's gone or you are told to stop. You should not have any left over. The healthcare provider may prescribe medicines for pain. If no pain medicines were prescribed, you can use [id number] pain medicines. Follow instructions for taking any pain medicines. Talk with your healthcare provider before using these medicines if you have chronic liver or kidney disease, or ever had a stomach ulcer or digestive bleeding. Follow the healthcare provider's instructions on how to care for the cut. Keep the wound clean and dry. Don't get the wound wet until you are told it's OK to do so. If the area gets wet, gently pat it dry with a clean cloth. Replace the wet bandage with a dry one. If a bandage was applied and it becomes wet or dirty, replace it. Otherwise, leave it in place for the first 24 hours. Caring for stitches or jose de jesus: Once you no longer need to keep them dry, clean the wound daily. First, remove the bandage. Then wash the area gently with soap and clean running water, or as directed by the healthcare provider. Use a wet cotton swab to loosen and remove any blood or crust that forms. After cleaning, apply a thin layer of antibiotic ointment if advised. Then put on a new bandage unless you are told not to. Caring for skin glue: Don't put apply liquid, ointment, or cream on the wound while the glue is in place. Don't do activities that cause heavy sweating. Protect the wound from sunlight. Don't scratch, rub, or pick at the adhesive film. Don't place tape directly over the film. The glue should peel off naturally within 5 to 10 days. Caring for surgical tape: Keep the area dry. If it gets wet, blot it dry with a clean towel. Surgical tape usually falls off within 7 to 10 days. If it has not fallen off after 10 days, you can take it off yourself. Put mineral oil or petroleum jelly on a cotton ball and gently rub the tape until it's removed. Once you can get the wound wet, you may shower as usual but don't soak the wound in water (no tub baths or swimming). Even with proper treatment, a wound infection may sometimes occur. Check the wound daily for signs of infection listed below. Scalp wounds During the first 2 days, you may carefully rinse your hair in the shower to remove blood, glass or dirt particles. After 2 days, you may shower and shampoo your hair normally. Don't soak your scalp in the tub or go swimming until the stitches or jose de jesus have been removed. Talk with your healthcare provider before applying any antibiotic ointment to the wound. 4 of 5 Discharge Instructions Mouth wounds Eat soft foods to reduce pain. If the cut is inside of your mouth, clean by rinsing after each meal and at bedtime with a mixture of equal parts water and hydrogen peroxide (don't swallow!). Or you can use a cotton swab to directly apply hydrogen peroxide onto the cut. You may also be prescribed a chlorhexidine solution to rinse with. Mouth wounds can be painful when eating. You may use an rjmq-ieh-[id number] local numbing solution for pain relief. If this is not available, you may use any numbing solution intended for teething babies. You may apply this directly to the sores with a cotton-tip swab or with your clean finger. Follow-up care Follow up with your healthcare provider as advised. Ask your healthcare provider how long stitches should be left in place. Be sure to return for stitch removal as directed. If dissolving stitches were used in the mouth, these should fall out or dissolve without the need for removal. If tape closures were used, remove them yourself when your provider recommends if they have not fallen off on their own. If skin glue was used, the film will wear off by itself. Generally, you should keep healing wounds out of direct sunlight for the first couple of months to try to lessen scarring. When to seek medical advice Call your healthcare provider right away if any of these occur: Signs of infection, including increasing pain in the wound, increasing wound redness or swelling, or pus or bad odor coming from the wound Fever of 100.4F (38.C) or higher , or as directed by your healthcare provider Stitches or jose de jesus come apart or fall out or surgical tape falls off before 7 days and the wound appears to be reopening Wound edges reopen Wound changes colors Numbness around the wound after any numbing medicine should have worn off Decreased movement around the injured area Call 911 Call 911 if you can't control the wound bleeding with direct pressure. 5 of 5 ED ORDER SHEET (CPOE ONLY) Observed: 04/2025 6:58 PM Status: F Source: [facility] Order Sheet Order Sheet [address] [address] [id number] 12/17/2024 Patient: KEATON HARLEY Sex: Male : 1960 Age: 64y MEASUREMENTS: Wt: 95.3 kg, Ht/Jose: 70.0 in, BMI: 30.13 ALLERGIES: No known drug allergies MEDICATION/IV/DRIP/FLUID ORDERS Order Description Priority Entered Acknowledged Completed Lidocaine (PF) Intradermal 1 01:38 12/18/2024 02:26 02:26 %10 mL (NOW x1, place at Ferdinand Gibbs D.O. 12/18/2024 12/18/2024 bedside) Efrain Loaiza R.N. Order Comments: :12/18/2024: given by MD Mueller. Kelly Meredith R.N. Tdap IM DIPTH/TETANUS/PERT 01:44 12/18/2024 02:26 02:49 > 7yr and older0.5 mL (NOW x1) Ferdinand Gibbs D.O. 12/18/2024 12/18/2024 Efrain Loaiza R.N. Cephalexin PO [id number] 02:38 12/18/2024 02:39 02:45 mg (NOW x1) Ferdinand Gibbs D.O. 12/18/2024 12/18/2024 Efrain Loaiza R.N. LAB ORDERS Order Description Priority Entered Acknowledged Collected Completed DIAGNOSTIC STUDY ORDERS Order Description Priority Entered Acknowledged Completed 1 of 2 Order Sheet STAFF ORDERS Order Description Priority Entered Acknowledged Collected Completed Dress Wounds 02:38 12/18/2024 02:40 12/18/2024 02:42 12/18/2024 Sapphire Issa R.N. Anne Rutt, R.N. [Electronically signed by Ferdinand Gibbs D.O. (12/19/2024 19:40 EST)] 2 of 2 ED MED ADMINISTRATION DETAIL Observed: 0 12/17/2024 6:58 PM Status: F Source: [facility] Freight Handler Medication Administration Record [address] [address] [id number] 12/17/2024 Patient: KEATON HARLEY Sex: Male : 1960 Age: 64y MEASUREMENTS: Wt: 95.3 kg, Ht/Jose: 70.0 in, BMI: 30.13 ALLERGIES: No known drug allergies Medication Ordered Medication Administration Date/Time Lidocaine (PF) Completed Intradermal 1 % 10 02:26 12/18/2024 mL Kelly Meredith R.N. Order Comments: :12/18/2024: given by MD Kamaljit Meredith R.N. Tdap IM 02:45 12/18 Tdap IM DIPTH/TETANUS/PERT > 7yr and older 0.5 Given DIPTH/TETANUS/P mL given. (Lot#: [id number], expiration date: 01/27/2027, mri assistant: 02:45 12/18/2024 ERT > 7yr and older [address]). Given in the left deltoid. Vaccine information Kelly Rutt, R.N. 0.5 mL (NOW x1) statement (12/18/2024) provided to the patient. - 02:49 Faustino Loaiza RPetros Cephalexin PO 02:44 02 Cephalexin PO Capsules 500 mg given. Allergies Given Capsules 500 mg verified and confirmed 5 rights. Information reviewed with patient. 02:44 12/18/2024 (NOW x1) Verbalizes understanding. - 02:45 Efrain Loaiza R.N. Scanned 1 of 2 Freight Handler 2 of 2 ED VITALS FLOW SHEET Observed: 5 6:58 PM Status: F Source: [facility] Vitals Vital Sign Flow Sheet [address] [address] [id number] 12/17/2024 Patient: KEATON HARLEY Sex: Male : 1960 Age: 64y Measurements Wt: 95.3 kg, Ht/Jose: 70.0 in, BMI: 30.13 Measured Time BP MAP HR RR O2Sat ETCO2 Temp Pain GCS RTS 20:00 12/17/2024 152/79 103 58 16 97% 98.0 F 2 1 of 1 ALLERGIES No Allergies Records Found ENCOUNTERS ADMIT/DISCHARGE ACCOUNT NUMBER ADMITTING ENCOUNTER CLASS LOCATION SOURCE 12/17/2024/ 5 [id number] [place] Emergency Buildin Room: [facility] 12/17/2024 [id number] Vee MONTES Ambulatory Building:[facility] PAYERS ENCOUNTER GUARANTOR PAYER SUBSCRIBER SOURCE 12/17/2024 KEATON Colón FRANCESCO: [id number] [address], [place] [address]Aop: () Primary Insurance:[employer] OUTPATIENTPolicy Number: [id number] Date:Plan Name:Kevon Colón JAYNAB: [id number] [address] [address] [facility] 12/17/2024 KEATONJONATHAN MAYA: [id number] [address], [place] [address]Pma: () Primary Insurance:[facility] OUTPATIENTPolicy Number: [id number] Date:Plan Name:U4 KEATON Eldon MAYA: [id number] [address], [place] [address] [facility]
[2025-08-09 16:34] LABS: Hematocrit 45.2 % (40-54); Hemoglobin 15.7 g/dL (13.0-16.5); Immature Granulocytes Count 0.020 X10^3/uL (0.0-0.0); Mean Corp Hgb Conc 34.7 g/dL (32-36); Mean Corpuscular Volume 88.5 fL (80-94); Mean Platelet Vol. 9.9 fl (6.2-12.0); NRBC Flagged by Analyzer 0 % (0-5); Platelet Count 246 K/mm3 (150-450); RBC Distribution Width CV 13.0 % (11.6-14.6); RBC Distribution Width SD 42.2 fl (35.1-43.9); Red Blood Count 5.11 M/mm3 (4.6-6.2); White Blood Count 7.8 K/mm3 (4.4-11.0)
[2025-08-09 18:25] LABS: AST(SGOT) 23 U/L (<=37); Alanine Aminotransfer ALT/SGPT 32 U/L (<=46); Albumin, Serum 4.5 g/dL (3.4-4.8); Alkaline Phosphatase 47 U/L (40-129); Anion Gap 15 (5-15); BUN 27 mg/dL (4-19); BUN/Creat Ratio 34.5 RATIO (10-20); Calcium,Total 9.5 mg/dL (7.6-11.0); Carbon Dioxide 22.1 mmol/L (21.0-32.0); Chloride 101 mmol/L (98-108); Globulin 2.6 g/dL (2.2-4.2); Glucose 151 mg/dL (70-99); Potassium 4.0 mmol/L (3.3-5.1); Pro- Brain NATRIURETIC PEPTIDE 251 pg/mL (<=900)
== END | disposition home or self-care (01) ==
LOC: LAB 14:48
PROVIDERS: PCP Family Medicine; Referring Provider Nurse Practitioner Family; Visit Provider Nurse Practitioner Family
DX: R06.02 Shortness of breath (principal); I25.10 Atherosclerotic heart disease of native coronary artery without angina pectoris; R40.0 Somnolence; R53.83 Other fatigue; K22.719 Barrett's esophagus with dysplasia, unspecified; I49.3 Ventricular premature depolarization; Z95.5 Presence of coronary angioplasty implant and graft
CPT/HCPCS: 36415; 80053; 83880; 84443; 85025